=== PATIENT | male | born 1980 | race Caucasian/White ===

== ENCOUNTER 2018-01-22 11:57 | Emergency (ER) | payer OTHER ==
[2018-01-22] MEDS ORDERED: PROPARACAINE 0.5% OPHTH DROPS 15 ML BTL RIGHT EYE STA (12:30)
[2018-01-22 12:37] VITALS: BP 132/69; PULSE 80; RESP 18; TEMP 98.3
[2018-01-22] MEDS ORDERED: TOBRAMYCIN 0.3% OPHTH DROPS 5 ML BTL RIGHT EYE STA (13:00)
--- NOTE | 2018-01-22 13:07 | ED ---
Eye Problem HPI - General Chief complaint: Eye Problems Stated complaint: FB RT EYE Time Seen by Provider: 01/22/18 12:30 Source: patient, RN notes reviewed Mode of arrival: ambulatory Limitations: no limitations - History of Present Illness Initial comments: This is a 37-year-old male who presents to the emergency department with chief complaint of possible foreign body in his right eye. Patient states that he felt like he got a piece or rust in his eye on Saturday but when he woke up in the morning the foreign body sensation had subsided. He states that this morning he again developed right eye irritation. He states that his eye is sensitive to the light and has foreign body sensation. He denies vision changes , however he does state that it is slightly blurry due to the tearing. States that he did nothing today that would've caused him to have a foreign body in his eye. Patient does not wear contact lenses. Denies fever, chills, chest pain, shortness of breath, abdominal pain, nausea or vomiting, constipation or diarrhea, dysuria or hematuria, numbness or tingling, headache. - Related Data Home Medications Medication Instructions Recorded Confirmed Lisinopril [Zestril] 20 mg PO DAILY 01/22/18 01/22/18 Allergies Allergy/AdvReac Type Severity Reaction Status Date / Time bupropion Allergy Nausea & Verified 01/22/18 12:38 [From Wellbutrin SR] Vomiting & Diarrhea Review of Systems ROS Statement: Those systems with pertinent positive or pertinent negative responses have been documented in the HPI. ROS Other: All systems not noted in ROS Statement are negative. Past Medical History Past Medical History: Hypertension, Renal Disease History of Any Multi-Drug Resistant Organisms: None Reported Past Surgical History: No Surgical Hx Reported Past Psychological History: No Psychological Hx Reported Smoking Status: Never smoker Past Alcohol Use History: None Reported Past Drug Use History: None Reported General Exam - General Exam Comments Initial Comments: General: Awake and alert, well-developed; in no apparent distress. HEENT: Head atraumatic, normocephalic. Pupils are equal, round and reactive to light. Extraocular movements intact. Right conjunctiva is mildly injected. On fluorescein staining and use of Wood's lamp, no abrasions or ulcers noted. No foreign body of the cornea, conjunctiva or under superior or inferior eyelids. Oropharynx moist without erythema or exudate. Neck: Supple. Normal ROM. Cardiovascular: Regular rate and rhythm. No murmurs, rubs or gallops. Chest symmetrical. Respiratory: Lungs clear to auscultation bilaterally. No wheezes, rales or rhonchi. Normal respiratory effort with no use of accessory muscles. Musculoskeletal: Normal ROM, no tenderness bilateral upper and lower extremities. Ambulating normally. Skin: [place], warm and dry without rashes or lesions. Neurological: Alert and oriented x3. CN II-XII grossly intact. Speech is fluent and answers are appropriate. No focal neuro deficits. Psychiatric: Normal mood and affect. No overt signs of depression or anxiety noted. Limitations: no limitations Course Vital Signs 01/22/18 12:30 Temperature 98.3 F Pulse Rate 80 Respiratory 18 Rate Blood Pressure 132/69 O2 Sat by Pulse 98 Oximetry Medical Decision Making - Medical Decision Making This is a 37 ROM male who presents to the emergency department with chief complaint of possible foreign body in his right eye. On physical examination, extraocular movements are intact area and right conjunctiva is mildly injected. On evaluation with fluorescein staining and Wood's lamp, no abrasions or ulcers are noted. No evidence of foreign body in the eye. Patient's eye irritation resolved with instillation of proparacaine. Patient's vital signs are stable and he is in no acute distress. He will be treated for conjunctivitis with tobramycin. He will be given follow-up to ophthalmology if no improvement symptoms in 1-2 days. Patient is in agreement with plan and voices understanding. He will be discharged home at this time. All questions answered. Disposition Clinical Impression: Conjunctivitis Disposition: HOME SELF-CARE Condition: Good Instructions: Conjunctivitis (ED), Tobramycin (Into the eye) Additional Instructions: Please follow-up with Dr. Vo, ophthalmology if no improvement of symptoms in 1-2 days. Please instill 1-2 drops of tobramycin every 4-6 hours for the next 5 days. Please take medications as prescribed. Please follow up with primary care provider within 1-2 days. Return to emergency department if symptoms should worsen or any concerns arise. Is patient prescribed a controlled substance at d/c from ED?: No Referrals: uTcker Pope MD [Primary Care Provider] - 1-2 days Levon Vo MD [STAFF PHYSICIAN] - 1-2 days Time of Disposition: 13:06
== END 2018-01-22 13:55 | disposition home or self-care (01) ==
LOC: EC 11:57
DX: H10.9 Unspecified conjunctivitis (principal); I12.9 Hypertensive chronic kidney disease with stage 1 through stage 4 chronic kidney disease, or unspecified chronic kidney disease; N18.9 Chronic kidney disease, unspecified; Z79.899 Other long term (current) drug therapy; Z88.8 Allergy status to other drugs, medicaments and biological substances
CPT/HCPCS: 99283

== ENCOUNTER 2021-05-02 10:12 | Inpatient (IN) | payer OTHER ==
[2021-05-02] MEDS ORDERED: methylPREDNISolone SOD SUCCI 125 MG/2 ML VIAL IV STA (10:38)
[2021-05-02] MEDS ORDERED: SODIUM CHLORIDE 0.9% 1,000 ML IV STA ×2 (10:38→11:26)
[2021-05-02] MEDS ORDERED: IPRATROPIUM-ALBUTEROL 3 ML NEB INHALATION STA (10:38)
[2021-05-02] MEDS ORDERED: SODIUM CHLORIDE 0.9% 500 ML 500 ML IV STA ×2 (10:38→11:26)
--- NOTE | 2021-05-02 10:44 | ED ---
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 He does state he's had fevers chills and sweats exactly a better his home inhaler is not helping with the breathing. He does get some relief for a brief period time but later going back and shortness of breath no overt chest pain no palpitations no other complaints or modifying factors MD Complaint: shortness of breath, cough - Related Data Home Medications Medication Instructions Recorded Confirmed lisinopriL [Zestril] 20 mg PO DAILY 01/22/18 01/22/18 Allergies Allergy/AdvReac Type Severity Reaction Status Date / Time bupropion Allergy Nausea & Verified 05/02/21 10:19 [From Wellbutrin SR] Vomiting & Diarrhea Review of Systems ROS Statement: Those systems with pertinent positive or pertinent negative responses have been documented in the HPI. ROS Other: All systems not noted in ROS Statement are negative. Past Medical History Past Medical History: Hypertension, Renal Disease History of Any Multi-Drug Resistant Organisms: None Reported Past Surgical History: No Surgical Hx Reported Past Psychological History: No Psychological Hx Reported Smoking Status: Never smoker Past Alcohol Use History: None Reported Past Drug Use History: None Reported General Exam - General Exam Comments Initial Comments: This is a well-developed well-nourished awake alert oriented times 3 male Limitations: no limitations General appearance: alert, anxious, in distress Head exam: Present: atraumatic, normocephalic, normal inspection Eye exam: Present: normal appearance, PERRL, EOMI. Absent: scleral icterus, conjunctival injection, periorbital swelling ENT exam: Present: mucous membranes dry Neck exam: Present: normal inspection, full ROM, other (No surgery or bruits). Absent: tenderness, meningismus, lymphadenopathy Respiratory exam: Present: accessory muscle use, decreased breath sounds. Absent: respiratory distress, wheezes, rales, rhonchi, stridor Cardiovascular Exam: Present: regular rate, normal rhythm, normal heart sounds. Absent: systolic murmur, diastolic murmur, rubs, gallop, clicks GI/Abdominal exam: Present: soft, normal bowel sounds. Absent: distended, tenderness, guarding, rebound, rigid Extremities exam: Present: normal inspection, full ROM, normal capillary refill. Absent: tenderness, pedal edema, joint swelling, calf tenderness Back exam: Present: normal inspection Neurological exam: Present: alert, oriented X3, CN II-XII intact Psychiatric exam: Present: normal affect, normal mood Skin exam: Present: warm, dry, intact, normal color. Absent: rash Course Vital Signs 05/02/21 05/02/21 05/02/21 10:14 10:28 10:30 Temperature 98.4 F Pulse Rate 90 Respiratory 28 H Rate Blood Pressure 122/69 O2 Sat by Pulse 67 L 63 L 75 L Oximetry 05/02/21 05/02/21 05/02/21 10:32 10:36 10:59 Temperature Pulse Rate 85 Respiratory 20 22 Rate Blood Pressure 135/86 O2 Sat by Pulse 70 L 92 L 93 L Oximetry 05/02/21 05/02/21 11:00 12:13 Temperature Pulse Rate Respiratory Rate Blood Pressure 134/86 O2 Sat by Pulse 93 L 91 L Oximetry Medical Decision Making - Medical Decision Making I did discuss the findings with the patient as well as with Dr. Patton patient will be admitted with pulmonary consultation. - Lab Data Result diagrams: 05/02/21 10:57 05/02/21 10:57 Lab Results 05/02/21 05/02/21 05/02/21 Range/Units 10:57 10:57 10:57 WBC 9.3 (3.8-10.6) k/uL RBC 5.64 (4.30-5.90) m/uL Hgb 15.3 (13.0-17.5) gm/dL Hct 48.0 (39.0-53.0) % MCV 85.2 (80.0-100.0) fL MCH 27.1 (25.0-35.0) pg MCHC 31.8 (31.0-37.0) g/dL RDW 14.1 (11.5-15.5) % Plt Count 255 (150-450) k/uL MPV 8.0 Neutrophils % 84 % Lymphocytes % 11 % Monocytes % 5 % Eosinophils % 0 % Basophils % 0 % Neutrophils # 7.8 H (1.3-7.7) k/uL Lymphocytes # 1.0 (1.0-4.8) k/uL Monocytes # 0.4 (0-1.0) k/uL Eosinophils # 0.0 (0-0.7) k/uL Basophils # 0.0 (0-0.2) k/uL PT 10.5 (9.0-12.0) sec INR 1.0 (<1.2) APTT 25.8 (22.0-30.0) sec D-Dimer 1.79 H (<0.60) mg/L FEU Sodium 138 (137-145) mmol/L Potassium 3.8 (3.5-5.1) mmol/L Chloride 99 (98-107) mmol/L Carbon Dioxide 29 (22-30) mmol/L Anion Gap 10 mmol/L BUN 13 (9-20) mg/dL Creatinine 1.52 H (0.66-1.25) mg/dL Est GFR (CKD-EPI)AfAm 66 (>60 ml/min/1.73 sqM) Est GFR (CKD-EPI)NonAf 57 (>60 ml/min/1.73 sqM) Glucose 88 (74-99) mg/dL Plasma Lactic Acid Melquiades (0.7-2.0) mmol/L Calcium 8.5 (8.4-10.2) mg/dL Magnesium 1.5 L (1.6-2.3) mg/dL Total Bilirubin 0.5 (0.2-1.3) mg/dL AST 62 H (17-59) U/L ALT 23 (4-49) U/L Alkaline Phosphatase 56 (38-126) U/L Creatine Kinase 355 H (55-170) U/L Troponin I (0.000-0.034) ng/mL NT-Pro-B Natriuret Pep pg/mL Total Protein 6.4 (6.3-8.2) g/dL Albumin 3.3 L (3.5-5.0) g/dL 05/02/21 05/02/21 05/02/21 Range/Units 10:57 10:57 10:57 WBC (3.8-10.6) k/uL RBC (4.30-5.90) m/uL Hgb (13.0-17.5) gm/dL Hct (39.0-53.0) % MCV (80.0-100.0) fL MCH (25.0-35.0) pg MCHC (31.0-37.0) g/dL RDW (11.5-15.5) % Plt Count (150-450) k/uL MPV Neutrophils % % Lymphocytes % % Monocytes % % Eosinophils % % Basophils % % Neutrophils # (1.3-7.7) k/uL Lymphocytes # (1.0-4.8) k/uL Monocytes # (0-1.0) k/uL Eosinophils # (0-0.7) k/uL Basophils # (0-0.2) k/uL PT (9.0-12.0) sec INR (<1.2) APTT (22.0-30.0) sec D-Dimer (<0.60) mg/L FEU Sodium (137-145) mmol/L Potassium (3.5-5.1) mmol/L Chloride (98-107) mmol/L Carbon Dioxide (22-30) mmol/L Anion Gap mmol/L BUN (9-20) mg/dL Creatinine (0.66-1.25) mg/dL Est GFR (CKD-EPI)AfAm (>60 ml/min/1.73 sqM) Est GFR (CKD-EPI)NonAf (>60 ml/min/1.73 sqM) Glucose (74-99) mg/dL Plasma Lactic Acid Melquiades 2.2 H* (0.7-2.0) mmol/L Calcium (8.4-10.2) mg/dL Magnesium (1.6-2.3) mg/dL Total Bilirubin (0.2-1.3) mg/dL AST (17-59) U/L ALT (4-49) U/L Alkaline Phosphatase (38-126) U/L Creatine Kinase (55-170) U/L Troponin I 0.027 (0.000-0.034) ng/mL NT-Pro-B Natriuret Pep 187 pg/mL Total Protein (6.3-8.2) g/dL Albumin (3.5-5.0) g/dL - EKG Data -: EKG Interpreted by Me EKG shows normal: sinus rhythm, axis, intervals, QRS complexes, ST-T waves Rate: normal EKG Comments: Normal sinus rhythm with 83 [place] interval 186 QRS duration 96 QT since QTC 374/[address]-T wave changes some artifact present - Radiology Data Radiology results: report reviewed (Imaging reviewed no evidence of PE evidence of bilateral groundglass infiltrate consistent with pneumonia), image reviewed Disposition Clinical Impression: Pneumonia due to COVID-19 virus, Hypoxemia, Failure of outpatient treatment, Lactic acidosis, Dehydration Disposition: ADMITTED IP TO THIS HOSP Condition: Fair Referrals: Tucker Pope MD [Primary Care Provider] - 1-2 days
[2021-05-02] MEDS ORDERED: ALBUTEROL HFA INHALER INHALATION STA (11:02)
[2021-05-02 11:12] LABS: Basophils % (A) 0 %; Eosinophils % (A) 0 %; HGB 15.3 gm/dL (13.0-17.5); Lymphocytes % (A) 11 %; MCH 27.1 pg (25.0-35.0); MCHC 31.8 g/dL (31.0-37.0); MCV 85.2 fL (80.0-100.0); Monocytes # (A) 0.4 k/uL (0-1.0); Monocytes % (A) 5 %; Neutrophils # (A) 7.8 k/uL (1.3-7.7); Neutrophils % (A) 84 %; Platelet Count 255 k/uL (150-450); RBC 5.64 m/uL (4.30-5.90); RDW 14.1 % (11.5-15.5); WBC 9.3 k/uL (3.8-10.6)
[2021-05-02 11:24] LABS: Albumin 3.3 g/dL (3.5-5.0); Calcium 8.5 mg/dL (8.4-10.2); Magnesium 1.5 mg/dL (1.6-2.3); Potassium 3.8 mmol/L (3.5-5.1); Total Bilirubin 0.5 mg/dL (0.2-1.3); Total Protein 6.4 g/dL (6.3-8.2)
[2021-05-02 11:27] LABS: Partial Thromboplastin Time 25.8 sec (22.0-30.0); Prothrombin Time 10.5 sec (9.0-12.0)
--- NOTE | 2021-05-02 11:35 | XR ---
EXAMINATION TYPE: XR chest 2V DATE OF EXAM: 05/02/2021 COMPARISON: NONE HISTORY: SOB ; COVID positive. TECHNIQUE: Frontal and lateral views of the chest are obtained. FINDINGS: There is mild cardiomegaly. Multifocal and Confluent opacities right lung and to lesser degree left lung without pleural effusion or pneumothorax. The osseous structures are intact. IMPRESSION: Cardiomegaly with multifocal and confluent bilateral opacities could reflect infiltrates and/or edema. Former is favored given history of covid 19 positivity.
[2021-05-02] MEDS ORDERED: MAGNESIUM SULFATE-D5W PMX 1 GM in DEXTROSE/WATER 1 100ML.BAG IVPB ONE (11:53)
--- NOTE | 2021-05-02 12:33 | CT ---
EXAMINATION TYPE: CT angio chest DATE OF EXAM: 05/02/2021 12:01 PM COMPARISON: None HISTORY: covid +, PE CT DLP: 648 mGycm Automated exposure control for dose reduction was used. CONTRAST: CTA scan of the thorax is performed with IV Contrast, patient injected with 80 mL of Isovue 370, pulm onary embolism protocol. . FINDINGS: LUNGS: Diffuse groundglass changes bilaterally. Findings compatible with diffuse pneumonitis compatib le with the patient's history. No sizable pleural effusion or pneumothorax. MEDIASTINUM: There is of optimal enhancement of the pulmonary artery and its branches, there is no CT evidence for central pulmonary embolism. There are no greater than 1 cm hilar or mediastinal lymph nodes. No pericardial effusion is seen. OTHER: No additional significant abnormality is seen. IMPRESSION: 1. Diffuse bilateral groundglass changes compatible diffuse pneumonia or pneumonitis compatible with the patient's history. 2. No central pulmonary embolism. Secondary and distal branches limited by suboptimal enhancement
[2021-05-02] MEDS: ZINC SULFATE 220 MG CAP PO SCH (15:02)
[2021-05-02] MEDS: ASCORBIC ACID 500 MG TAB PO SCH (15:02)
[2021-05-02] MEDS: CHOLECALCIFEROL 25 MCG (1000 IU) TABLET PO SCH (15:02)
--- NOTE | 2021-05-02 16:23 | P.HPIM ---
History of Present Illness H&P Date: 05/02/21 This is a 40-year-old male with past medical history significant for mild intermittent asthma who presented to the hospital with worsening shortness of breath and dyspnea. Patient said that he was diagnosed with COVID19 approximately 2 weeks ago and since then he has been getting progressively wor se. He is complaining of fevers and chills at home as well as heavy sweating. Patient says shortness of breath got significantly worse today and he was unable to ambulate without feeling significantly dyspneic. He presented to the emergency room for further evaluation. In the ER, patient was found to be hypoxic with imaging showing diffuse ground glass infiltrate. Patient was given IV Solu-Medrol and admitted to the hospital for further evaluation. Patient told me that he is feeling slightly better right now. He was not vaccinated against COVID. Review of Systems Review of system: 14 points review of systems were obtained and were negative except to what were mentioned in the HPI. Past Medical History Past Medical History: Hypertension, Renal Disease History of Any Multi-Drug Resistant Organisms: None Reported Past Surgical History: No Surgical Hx Reported Past Psychological History: No Psychological Hx Reported Smoking Status: Former smoker Past Alcohol Use History: None Reported Past Drug Use History: None Reported - Past Family History Father Family Medical History: Coronary Artery Disease (CAD), Rheumatoid Arthritis (RA) Additional Family Medical History / Comment(s): coliltis Medications and Allergies Home Medications Medication Instructions Recorded Confirmed Type Bisoprolol-Hctz 10-6.25 mg [Ziac 1 tab PO DAILY 05/02/21 05/02/21 History 10-6.25 MG] Cetirizine HCl [Zyrtec] 10 mg PO DAILY 05/02/21 05/02/21 History Famotidine [Pepcid] 40 mg PO DAILY 05/02/21 05/02/21 History Fluticasone Nasal [place] [Flonase 2 spr EA NOSTRIL DAILY PRN 05/02/21 05/02/21 History Nasal [place]] Montelukast [Singulair] 10 mg PO HS 05/02/21 05/02/21 History Tamsulosin [Flomax] 0.4 mg PO DAILY 05/02/21 05/02/21 History lisinopriL [Zestril] 30 mg PO DAILY 05/02/21 05/02/21 History Allergies Allergy/AdvReac Type Severity Reaction Status Date / Time bupropion AdvReac Nausea & Verified 05/02/21 13:26 [From Wellbutrin SR] Vomiting & Diarrhea Physical Exam Vitals: Vital Signs Temp Pulse Pulse Resp BP BP Pulse Ox 05/02/21 13:43 89 L 05/02/21 13:35 98.8 F 84 20 140/88 89 L 05/02/21 13:08 84 20 128/67 92 L 05/02/21 12:13 91 L 05/02/21 11:00 134/86 93 L 05/02/21 10:59 22 93 L 05/02/21 10:36 85 20 135/86 92 L 05/02/21 10:32 70 L 05/02/21 10:30 75 L 05/02/21 10:28 63 L 05/02/21 10:14 98.4 F 90 28 H 122/69 67 L Intake and Output 05/02/21 05/02/21 05/02/21 06:59 14:59 22:59 Other: Weight 102.058 kg General: The patient is awake and alert, in no distress Eye: there is normal conjunctiva bilaterally. Neck: The neck is supple, there is no JVD. Cardiovascular: Normal S1-S2, no S3-S4, no murmurs. Respiratory: Lungs clear to auscultation bilaterally Gastrointestinal: Abdomen is soft, nontender Musculoskeletal: There is no pedal edema. Neurological:. Speech is normal. Skin: Skin is warm and dry Results CBC & Chem 7: 05/02/21 10:57 05/02/21 10:57 Labs: Abnormal Lab Results - Last 24 Hours (Table) 05/02/21 05/02/21 05/02/21 Range/Units 10:57 10:57 10:57 Neutrophils # 7.8 H (1.3-7.7) k/uL D-Dimer 1.79 H (<0.60) mg/L FEU Creatinine 1.52 H (0.66-1.25) mg/dL Plasma Lactic Acid Melquiades (0.7-2.0) mmol/L Magnesium 1.5 L (1.6-2.3) mg/dL AST 62 H (17-59) U/L Creatine Kinase 355 H (55-170) U/L Albumin 3.3 L (3.5-5.0) g/dL 05/02/21 Range/Units 10:57 Neutrophils # (1.3-7.7) k/uL D-Dimer (<0.60) mg/L FEU Creatinine (0.66-1.25) mg/dL Plasma Lactic Acid Melquiades 2.2 H* (0.7-2.0) mmol/L Magnesium (1.6-2.3) mg/dL AST (17-59) U/L Creatine Kinase (55-170) U/L Albumin (3.5-5.0) g/dL Thrombosis Risk Factor Assmnt - Choose All That Apply Any of the Below Risk Factors Present?: Yes Each Factor Represents 1 point: Obesity (BMI >25) Other Risk Factors: No Other congenital or acquired thrombophilia - If yes, enter type in comment: No Thrombosis Risk Factor Assessment Total Risk Factor Score: 1 Thrombosis Risk Factor Assessment Level: Low Risk Assessment and Plan Assessment: 1. COVID-19 pneumonia with diffuse groundglass infiltrate bilaterally 2. Acute hypoxic respiratory failure 3. Elevated d-dimer with no evidence of PE on CT angiogram 4. Acute kidney injury 5. Hypomagnesemia 6. History of mild intermittent asthma 7. Former smoker Patient is currently on 15 L of high flow nasal cannula with O2 sats ration within acceptable range. He was treated with 125 mg of IV Solu-Medrol in the ER. Continue albuterol inhaler. Decadron 6 mg IV daily. Vitamin C, vitamin D, and zinc supplements. Magnesium replaced IV in the ER. Continue magnesium oxide 400 mg twice daily. Aggressive IV fluid hydration. Repeat lab work in the morning. Overall prognosis is guarded.
[2021-05-02] MEDS: ALBUTEROL HFA INHALER INHALATION SCH ×3 (16:50→23:40)
--- NOTE | 2021-05-02 18:24 | P.CNPUL ---
History of Present Illness Consult date: 05/02/21 Requesting physician: Victor Hugo Patton Reason for consult: dyspnea, hypoxemia, pneumonia, abnormal CXR/CT Chief complaint: Dyspnea, hypoxia, COVID-19 History of present illness: This is a 40-year-old the white male patient of Dr. Pope, with history of hypertension, history of mild intermittent bronchial asthma, former smoker, who presented to the emergency department on 05/02/2021 for evaluation of progressive dyspnea. Patient stated that she was diagnosed with COVID-19 approximately 2 weeks ago, and reports symptoms of fever, chills, shortness of breath which is significantly worse today, to the point where the patient was unable to ambulate. He does report cough with some brown phlegm production. His chest x-ray on admission showed cardiac megaly with multifocal and confluent bilateral opacities and could reflect infiltrates and/or edema. Blood work showed white blood cell count of 9.3, hemoglobin is 15.3, lymphocyte count was 1.0, d-dimer was 1.79, electrolytes were within normal limits, creatinine was 1.52, plasma lactic acid was 2.2, AST was 62, ALT was 23, alkaline phosphatase is 56, CK was 355, troponin was 0.027, proBNP was 187. he was severely hypoxic with a pulse ox of 67% in the emergency department on 6 L of supplemental oxygen, FiO2 was then increased to 15 L high flow and currently his pulse ox is 87-89%. CT angiogram of the chest was completed showing diffuse bilateral groundglass changes compatible with diffuse pneumonia or pneumonitis, no evidence of central pulmonary embolism, exam for secondary distal branches limited by suboptimal enhancement. Patient is outside the window for Remdesivir, patient was started on IV Decadron 6 mg daily, prophylactic dose Lovenox, she was given IV fluids a total of 1 L, and normal saline is infusing and rate of 75 ML per hour. Blood cultures have been sent and pending. he has been afebrile since admission. Review of Systems All systems: negative Constitutional: Denies chills, Denies fever Eyes: denies blurred vision, denies pain Ears, nose, mouth and throat: Denies headache, Denies sore throat Cardiovascular: Denies chest pain, Denies shortness of breath Respiratory: Reports dyspnea, Denies cough Gastrointestinal: Denies abdominal pain, Denies diarrhea, Denies nausea, Denies vomiting Musculoskeletal: Denies myalgias Integumentary: Denies pruritus, Denies rash Neurological: Denies numbness, Denies weakness Psychiatric: Denies anxiety, Denies depression Endocrine: Denies fatigue, Denies weight change Past Medical History Past Medical History: Hypertension, Renal Disease History of Any Multi-Drug Resistant Organisms: None Reported Past Surgical History: No Surgical Hx Reported Past Psychological History: No Psychological Hx Reported Smoking Status: Former smoker Past Alcohol Use History: None Reported Past Drug Use History: None Reported - Past Family History Father Family Medical History: Coronary Artery Disease (CAD), Rheumatoid Arthritis (RA) Additional Family Medical History / Comment(s): coliltis Medications and Allergies Home Medications Medication Instructions Recorded Confirmed Type Bisoprolol-Hctz 10-6.25 mg [Ziac 1 tab PO DAILY 05/02/21 05/02/21 History 10-6.25 MG] Cetirizine HCl [Zyrtec] 10 mg PO DAILY 05/02/21 05/02/21 History Famotidine [Pepcid] 40 mg PO DAILY 05/02/21 05/02/21 History Fluticasone Nasal [place] [Flonase 2 spr EA NOSTRIL DAILY PRN 05/02/21 05/02/21 History Nasal [place]] Montelukast [Singulair] 10 mg PO HS 05/02/21 05/02/21 History Tamsulosin [Flomax] 0.4 mg PO DAILY 05/02/21 05/02/21 History lisinopriL [Zestril] 30 mg PO DAILY 05/02/21 05/02/21 History Allergies Allergy/AdvReac Type Severity Reaction Status Date / Time bupropion AdvReac Nausea & Verified 05/02/21 13:26 [From Wellbutrin SR] Vomiting & Diarrhea Physical Exam Vitals: Vital Signs Temp Pulse Pulse Resp BP BP Pulse Ox 05/02/21 16:51 87 L 05/02/21 13:43 89 L 05/02/21 13:35 98.8 F 84 20 140/88 89 L 05/02/21 13:08 84 20 128/67 92 L 05/02/21 12:13 91 L 05/02/21 11:00 134/86 93 L 05/02/21 10:59 22 93 L 05/02/21 10:36 85 20 135/86 92 L 05/02/21 10:32 70 L 05/02/21 10:30 75 L 05/02/21 10:28 63 L 05/02/21 10:14 98.4 F 90 28 H 122/69 67 L Intake and Output 05/02/21 05/02/21 05/02/21 06:59 14:59 22:59 Output Total 400 Balance -400 Output: Urine 400 Other: Weight 102.058 kg GENERAL EXAM: Alert, active, pleasant 40-year-old white male, on 15 L high flow oxygen, with a pulse ox between 80-91% comfortable in no apparent distress. HEAD: Normocephalic/atraumatic. EYES: Normal reaction of pupils, equal size. Conjunctiva pink, sclera white. NOSE: Clear with pink turbinates. THROAT: No erythema or exudates. NECK: No masses, no JVD, no thyroid enlargement, no adenopathy. CHEST: No chest wall deformity. Symmetrical expansion. LUNGS: Equal air entry with diffuse crackles CVS: Regular rate and rhythm, normal S1 and S2, no gallops, no murmurs, no rubs ABDOMEN: Soft, nontender. No hepatosplenomegaly, normal bowel sounds, no guarding or rigidity. EXTREMITIES: No clubbing, no edema, no cyanosis, 2+ pulses and upper and lower extremities. MUSCULOSKELETAL: Muscle strength and tone normal. SPINE: No scoliosis or deformity SKIN: No rashes CENTRAL NERVOUS SYSTEM: Alert and oriented -3. No focal deficits, tone is normal in all 4 extremities. PSYCHIATRIC: Alert and oriented -3. Appropriate affect. Intact judgment and insight. Results - Laboratory Findings CBC and BMP: 05/02/21 10:57 05/02/21 10:57 PT/INR, D-dimer PT 10.5 sec (9.0-12.0) 05/02/21 10:57 INR 1.0 (<1.2) 05/02/21 10:57 D-Dimer 1.79 mg/L FEU (<0.60) H 05/02/21 10:57 Abnormal lab findings: Abnormal Labs 05/02/21 05/02/21 05/02/21 10:57 10:57 10:57 Neutrophils # 7.8 H D-Dimer 1.79 H Creatinine 1.52 H Plasma Lactic Acid Melquiades Magnesium 1.5 L AST 62 H Creatine Kinase 355 H Albumin 3.3 L 05/02/21 10:57 Neutrophils # D-Dimer Creatinine Plasma Lactic Acid Melquiades 2.2 H* Magnesium AST Creatine Kinase Albumin - Diagnostic Findings Chest x-ray: report reviewed, image reviewed CT scan - chest: report reviewed, image reviewed Additional studies: EKG reviewed Assessment and Plan Plan: Assessment: #1. Acute hypoxic respiratory failure related to acute COVID-19 pneumonia, diagnosed 2 weeks ago, and is outside the window for Remdesivir. Consider Bariticinib evidence of severe hypoxic respiratory failure #2. History of mild intermittent bronchial asthma #3. Acute kidney injury #4. Hypertension #5. Former smoker #6. Mild lactic acidosis #7. Elevated d-dimer without CT evidence of pulmonary embolism Plan: Continue IV Solu-Medrol Continue the vitamins Continue prophylactic Lovenox Patient presented with severe pneumonia related to COVID 19 We'll consider starting patient on Bariticinib I performed a history & physical examination of the patient and discussed their management with my nurse practitioner, Leda Dawson. I reviewed the nurse practitioner's note and agree with the documented findings and plan of care. Lung sounds are positive for diminished breath sounds throughout the lung pederson. The findings and the impression was discussed with the patient. I attest to the documentation by the nurse practitioner. Time with Patient: Greater than 30
[2021-05-02] MEDS: MAGNESIUM OXIDE 400 MG TAB PO SCH (21:23)
[2021-05-02] MEDS: BARICITINIB 2 MG TABLET PO SCH (21:23)
[2021-05-02] MEDS: SODIUM CHLORIDE 0.9% 1,000 ML IV SCH (21:24)
[2021-05-02] MEDS ORDERED: CALCIUM CARBONATE 500 MG CHEWABLE PO PRN (21:28)
[2021-05-03] MEDS: ALBUTEROL HFA INHALER INHALATION SCH ×6 (03:34→23:55)
[2021-05-03] MEDS: BARICITINIB 2 MG TABLET PO SCH ×2 (03:55→20:00)
[2021-05-03] MEDS: MAGNESIUM OXIDE 400 MG TAB PO SCH ×2 (08:33→21:19)
[2021-05-03] MEDS: CHOLECALCIFEROL 25 MCG (1000 IU) TABLET PO SCH (08:33)
[2021-05-03] MEDS: ENOXAPARIN 40 MG/0.4 ML SYRINGE SQ SCH (08:33)
[2021-05-03] MEDS: ZINC SULFATE 220 MG CAP PO SCH (08:33)
[2021-05-03] MEDS: ASCORBIC ACID 500 MG TAB PO SCH (08:33)
[2021-05-03] MEDS: DEXAMETHASONE SOD PHOSPHATE 10 MG/ML 1 ML VIAL IV SCH (08:33)
[2021-05-03] MEDS ORDERED: FLUTICASONE 50MCG/SPRAY NASAL 16GM EA NOSTRIL PRN (08:59)
[2021-05-03 09:22] LABS: Basophils # (A) 0.02 X 10*3/uL (0.00-0.10); Basophils % (A) 0.2 %; Eosinophils # (A) 0 X 10*3/uL (0.04-0.35); Eosinophils % (A) 0 %; HCT 43.8 % (39.6-50.0); HGB 13.6 g/dL (13.0-17.0); Lymphocytes # (A) 0.86 X 10*3/uL (0.90-5.00); Lymphocytes % (A) 9.7 %; MCH 26.2 pg (27.0-32.0); MCHC 31.1 g/dL (32.0-37.0); MCV 84.4 fL (80.0-97.0); Mean Platelet Volume 10.1 fL (9.5-12.2); Monocytes # (A) 0.49 X 10*3/uL (0.20-1.00); Monocytes % (A) 5.5 %; Neutrophils # (A) 7.31 X 10*3/uL (1.80-7.70); Neutrophils % (A) 82.8 %; Platelet Count 254 X 10*3/uL (140-440); RBC 5.19 X 10*6/uL (4.40-5.60); RDW 15.4 % (11.5-14.5); WBC 8.84 X 10*3/uL (4.50-10.00)
[2021-05-03] MEDS: BISOPROLOL-HCTZ 10-6.25 MG 1 EACH TAB PO SCH (11:29)
[2021-05-03] MEDS: LORATADINE 10 MG TAB PO SCH (11:29)
[2021-05-03] MEDS: TAMSULOSIN 0.4 MG CAP.ER.24H PO SCH (11:29)
[2021-05-03] MEDS: FAMOTIDINE 20 MG TAB PO SCH (11:29)
[2021-05-03] MEDS: lisinopriL 10 MG TAB PO SCH (11:29)
[2021-05-03 13:52] LABS: Anion Gap 7.6 mmol/L (4.00-12.00); C Reactive Protein 12.1 mg/dL (0.0-0.8); Calcium 7.5 mg/dL (8.7-10.3); Carbon Dioxide 28.4 mmol/L (21.6-31.8); Magnesium 1.9 mg/dL (1.5-2.4); Non-African American GFR(CKD) 57.8 (60.0-200.0); Potassium 4.7 mmol/L (3.5-5.5)
--- NOTE | 2021-05-03 15:15 | P.PN ---
Subjective Progress Note Date: 05/03/21 Patient reports feeling slightly better today. His oxygen requirement is not improving compared to yesterday. Objective - Vital Signs Vital signs: Vital Signs Temp 98.7 F 05/03/21 13:52 Pulse 70 05/03/21 13:52 Resp 17 05/03/21 13:52 BP 138/77 05/03/21 13:52 Pulse Ox 100 05/03/21 13:52 Intake & Output 05/02/21 05/03/21 05/03/21 18:59 06:59 18:59 Intake Total 800 Output Total 400 800 Balance -400 -800 800 Weight 102.058 kg Intake: Oral 800 Output: Urine 400 800 Other: Voiding Method Urinal Urinal # Voids 5 # Bowel Movements 0 - Exam General: The patient is awake and alert, in no distress Eye: there is normal conjunctiva bilaterally. Neck: The neck is supple, there is no JVD. Cardiovascular: Normal S1-S2, no S3-S4, no murmurs. Respiratory: Lungs clear to auscultation bilaterally Gastrointestinal: Abdomen is soft, nontender Musculoskeletal: There is no pedal edema. Neurological:. Speech is normal. Skin: Skin is warm and dry - Labs CBC & Chem 7: 05/03/21 06:12 05/03/21 06:12 Labs: Abnormal Lab Results - Last 24 Hours (Table) 05/03/21 05/03/21 05/03/21 Range/Units 06:12 06:12 06:12 MCH 26.2 L (27.0-32.0) pg MCHC 31.1 L (32.0-37.0) g/dL RDW 15.4 H (11.5-14.5) % Absolute Nucleated RBC 0.03 H (0.00-0.00) X 10*3/uL Immature Gran # 0.16 H (0.00-0.04) X 10*3/uL Lymphocytes # 0.86 L (0.90-5.00) X 10*3/uL Eosinophils # 0 L (0.04-0.35) X 10*3/uL NRBC/100 WBC Diff 0.3 H (0.0-0.0) /100 WBCS D-Dimer 3.73 H (<0.60) mg/L FEU Est GFR (CKD-EPI)NonAf 57.8 L (60.0-200.0) Calcium 7.5 L (8.7-10.3) mg/dL Lactate Dehydrogenase 884 H (120-246) U/L C-Reactive Protein 12.1 H (0.0-0.8) mg/dL Microbiology - Last 24 Hours (Table) 05/02/21 10:50 Blood Culture - Preliminary Blood No Growth after 24 hours 05/02/21 10:35 Blood Culture - Preliminary Blood No Growth after 24 hours Assessment and Plan Assessment: 1. COVID-19 pneumonia with diffuse groundglass infiltrate bilaterally 2. Acute hypoxic respiratory failure 3. Elevated d-dimer with no evidence of PE on CT angiogram 4. Acute kidney injury with suspected underlying COPD 5. Hypomagnesemia, replaced 6. History of mild intermittent asthma 7. Former smoker Today, I reviewed his medication list and lab work results. Patient is currently on 15 L of high flow nasal cannula with a nonrebreather on top. Continue albuterol inhaler. Decadron 6 mg IV daily day #2. Vitamin C, vitamin D, and zinc supplements. Magnesium replaced. Patient received aggressive IV fluid hydration. Repeat lab work in the morning. Patient was seen and evaluated by pulmonology, appreciate recommendations. Repeat chest x-ray in the morning. Overall prognosis is guarded.
--- NOTE | 2021-05-03 18:28 | P.PN ---
Subjective Progress Note Date: 05/03/21 Principal diagnosis: COVID-19 pneumonia This is a 40-year-old the white male patient of Dr. Pope, with history of hypertension, history of mild intermittent bronchial asthma, former smoker, who presented to the emergency department on 05/02/2021 for evaluation of progressive dyspnea. Patient stated that she was diagnosed with COVID-19 approximately 2 weeks ago, and reports symptoms of fever, chills, shortness of breath which is significantly worse today, to the point where the patient was unable to ambulate. He does report cough with some brown phlegm production. His chest x-ray on admission showed cardiac megaly with multifocal and confluent bilateral opacities and could reflect infiltrates and/or edema. Blood work showed white blood cell count of 9.3, hemoglobin is 15.3, lymphocyte count was 1.0, d-dimer was 1.79, electrolytes were within normal limits, creatinine was 1.52, plasma lactic acid was 2.2, AST was 62, ALT was 23, alkaline phosphatase is 56, CK was 355, troponin was 0.027, proBNP was 187. he was severely hypoxic with a pulse ox of 67% in the emergency department on 6 L of supplemental oxygen, FiO2 was then increased to 15 L high flow and currently his pulse ox is 87-89%. CT angiogram of the chest was completed showing diffuse bilateral arturo undglass changes compatible with diffuse pneumonia or pneumonitis, no evidence of central pulmonary embolism, exam for secondary distal branches limited by suboptimal enhancement. Patient is outside the window for Remdesivir, patient was started on IV Decadron 6 mg daily, prophylactic dose Lovenox, she was given IV fluids a total of 1 L, and normal saline is infusing and rate of 75 ML per hour. Blood cultures have been sent and pending. he has been afebrile since admission. The patient is seen today 05/03/2021 in follow-up on the regular medical floor. He is currently sitting up at the bedside. Awake and alert. He is in mild respiratory distress. He is requiring 15 L high flow nasal cannula plus a nonrebreather mask to maintain O2 saturation in the 90s. He's been afebrile. Hemodynamically stable. Blood cultures reveal no growth. White count 8.8. Hemoglobin 13.6. Platelets 254. Lymphocyte 0.86. D-dimer 3.73. Sodium 138. Potassium 4.7 and creatinine 1.5. LDH 84. C-reactive protein 12.1. He remains on Bariticinib, Decadron, Lovenox, Singulair, vitamin supplements. He was outside the window for Remdesivir. Objective - Vital Signs Vital signs: Vital Signs Temp 98.1 F 05/03/21 16:53 Pulse 70 05/03/21 16:53 Resp 18 05/03/21 16:53 BP 136/75 05/03/21 16:53 Pulse Ox 90 L 05/03/21 16:53 Intake & Output 05/02/21 05/03/21 05/03/21 18:59 06:59 18:59 Intake Total 800 Output Total 400 800 Balance -400 -800 800 Weight 102.058 kg Intake: Oral 800 Output: Urine 400 800 Other: Voiding Method Urinal Urinal # Voids 5 # Bowel Movements 0 - Exam GENERAL EXAM: Alert, pleasant 40-year-old white male, on 15 L high flow oxygen, with a pulse ox between 90-91% comfortable in no apparent distress. HEAD: Normocephalic/atraumatic. EYES: Normal reaction of pupils, equal size. Conjunctiva pink, sclera white. NOSE: Clear with pink turbinates. THROAT: No erythema or exudates. NECK: No masses, no JVD, no thyroid enlargement, no adenopathy. CHEST: No chest wall deformity. Symmetrical expansion. LUNGS: Equal air entry with diffuse crackles bilaterally CVS: Regular rate and rhythm, normal S1 and S2, no gallops, no murmurs, no rubs ABDOMEN: Soft, nontender. No hepatosplenomegaly, normal bowel sounds, no guarding or rigidity. EXTREMITIES: No clubbing, no edema, no cyanosis, 2+ pulses and upper and lower extremities. MUSCULOSKELETAL: Muscle strength and tone normal. SPINE: No scoliosis or deformity SKIN: No rashes CENTRAL NERVOUS SYSTEM: No focal deficits, tone is normal in all 4 extremities. PSYCHIATRIC: Alert and oriented -3. Appropriate affect. Intact judgment and insight. - Labs CBC & Chem 7: 05/03/21 06:12 05/03/21 06:12 Labs: Abnormal Lab Results - Last 24 Hours (Table) 05/03/21 05/03/21 05/03/21 Range/Units 06:12 06:12 06:12 MCH 26.2 L (27.0-32.0) pg MCHC 31.1 L (32.0-37.0) g/dL RDW 15.4 H (11.5-14.5) % Absolute Nucleated RBC 0.03 H (0.00-0.00) X 10*3/uL Immature Gran # 0.16 H (0.00-0.04) X 10*3/uL Lymphocytes # 0.86 L (0.90-5.00) X 10*3/uL Eosinophils # 0 L (0.04-0.35) X 10*3/uL NRBC/100 WBC Diff 0.3 H (0.0-0.0) /100 WBCS D-Dimer 3.73 H (<0.60) mg/L FEU Est GFR (CKD-EPI)NonAf 57.8 L (60.0-200.0) Calcium 7.5 L (8.7-10.3) mg/dL Lactate Dehydrogenase 884 H (120-246) U/L C-Reactive Protein 12.1 H (0.0-0.8) mg/dL Microbiology - Last 24 Hours (Table) 05/02/21 10:50 Blood Culture - Preliminary Blood No Growth after 24 hours 05/02/21 10:35 Blood Culture - Preliminary Blood No Growth after 24 hours Assessment and Plan Assessment: 1 Acute hypoxic respiratory failure related to acute COVID-19 pneumonia, diagnosed 2 weeks ago, and is outside the window for Remdesivir. Initiated Bariticinib for evidence of severe hypoxic respiratory failure 2 History of mild intermittent bronchial asthma 3 Acute kidney injury 4 Hypertension 5 Former smoker 6 Mild lactic acidosis 7 Elevated d-dimer without CT evidence of pulmonary embolism Plan: The patient was seen and evaluated by Dr. Steele Continue Bariticinib, Lovenox, Decadron and a vitamin supplements. Encouraged regarding the increased use of the incentive spirometer Encouraged to lay prone when in bed Titrate the FiO2 as tolerated Prognosis is guarded We will continue to follow and make further recommendations based on his clinical status I, the cosigning physician, performed a history & physical examination of the patient. Lungs sounds crackles in the bilateral posterior bases. Maintaining good O2 saturations in the 90s on 15 L high flow cannula plus nonrebreather mask I discussed the assessment and plan of care with my nurse practitioner, Malena Lopez. I attest to the above note as dictated by her.
[2021-05-03] MEDS: SODIUM CHLORIDE 0.9% 1,000 ML IV SCH (19:59)
[2021-05-03] MEDS: MONTELUKAST 10 MG TAB PO SCH (21:19)
[2021-05-04] MEDS: ALBUTEROL HFA INHALER INHALATION SCH ×6 (04:01→20:12)
[2021-05-04] MEDS ORDERED: ACETAMINOPHEN TAB 325 MG TAB PO PRN (06:08)
[2021-05-04] MEDS ORDERED: ACETAMINOPHEN TAB 325 MG TAB PO STA (06:10)
[2021-05-04] MEDS: SODIUM CHLORIDE 0.9% 1,000 ML IV SCH ×2 (06:37→13:29)
[2021-05-04] MEDS: CHOLECALCIFEROL 25 MCG (1000 IU) TABLET PO SCH (07:50)
[2021-05-04] MEDS: DEXAMETHASONE SOD PHOSPHATE 10 MG/ML 1 ML VIAL IV SCH (07:50)
[2021-05-04] MEDS: ASCORBIC ACID 500 MG TAB PO SCH (07:51)
[2021-05-04] MEDS: FAMOTIDINE 20 MG TAB PO SCH (07:51)
[2021-05-04] MEDS: lisinopriL 10 MG TAB PO SCH (07:51)
[2021-05-04] MEDS: ZINC SULFATE 220 MG CAP PO SCH (07:51)
[2021-05-04] MEDS: MAGNESIUM OXIDE 400 MG TAB PO SCH ×2 (07:51→21:45)
[2021-05-04] MEDS: LORATADINE 10 MG TAB PO SCH (07:51)
[2021-05-04] MEDS: TAMSULOSIN 0.4 MG CAP.ER.24H PO SCH (07:51)
[2021-05-04] MEDS: ENOXAPARIN 40 MG/0.4 ML SYRINGE SQ SCH (07:52)
[2021-05-04] MEDS: BISOPROLOL-HCTZ 10-6.25 MG 1 EACH TAB PO SCH (07:54)
--- NOTE | 2021-05-04 08:19 | XR ---
EXAMINATION TYPE: XR chest 1V DATE OF EXAM: 05/04/2021 COMPARISON: 05/02/2021 HISTORY: Shortness of breath TECHNIQUE: Single frontal view of the chest is obtained. FINDINGS: Bilateral interstitial infiltrate stable. Heart is enlarged. No pneumothorax or sizable pl eural effusion. Osseous structures are stable. IMPRESSION: Stable diffuse bilateral interstitial infiltrates
--- NOTE | 2021-05-04 13:28 | P.PN ---
<Leda Dawson M - Last Filed: 05/04/21 13:28> Subjective Progress Note Date: 05/04/21 This is a 40-year-old the white male patient of Dr. Pope, with history of hypertension, history of mild intermittent bronchial asthma, former smoker, who presented to the emergency department on 05/02/2021 for evaluation of progres sive dyspnea. Patient stated that she was diagnosed with COVID-19 approximately 2 weeks ago, and reports symptoms of fever, chills, shortness of breath which is significantly worse today, to the point where the patient was unable to ambulate. He does report cough with some brown phlegm production. His chest x- ray on admission showed cardiac megaly with multifocal and confluent bilateral opacities and could reflect infiltrates and/or edema. Blood work showed white blood cell count of 9.3, hemoglobin is 15.3, lymphocyte count was 1.0, d-dimer was 1.79, electrolytes were within normal limits, creatinine was 1.52, plasma lactic acid was 2.2, AST was 62, ALT was 23, alkaline phosphatase is 56, CK was 355, troponin was 0.027, proBNP was 187. he was severely hypoxic with a pulse ox of 67% in the emergency department on 6 L of supplemental oxygen, FiO2 was then increased to 15 L high flow and currently his pulse ox is 87-89%. CT angiogram of the chest was completed showing diffuse bilateral groundglass changes compatible with diffuse pneumonia or pneumonitis, no evidence of central pulmonary embolism, exam for secondary distal branches limited by suboptimal enhancement. Patient is outside the window for Remdesivir, patient was started on IV Decadron 6 mg daily, prophylactic dose Lovenox, she was given IV fluids a total of 1 L, and normal saline is infusing and rate of 75 ML per hour. Blood cultures have been sent and pending. he has been afebrile since admission. The patient is seen today 05/03/2021 in follow-up on the regular medical floor. He is currently sitting up at the bedside. Awake and alert. He is in mild respiratory distress. He is requiring 15 L high flow nasal cannula plus a nonrebreather mask to maintain O2 saturation in the 90s. He's been afebrile. Hemodynamically stable. Blood cultures reveal no growth. White count 8.8. Hemoglobin 13.6. Platelets 254. Lymphocyte 0.86. D-dimer 3.73. Sodium 138. Potassium 4.7 and creatinine 1.5. LDH 84. C-reactive protein 12.1. He remains on Bariticinib, Decadron, Lovenox, Singulair, vitamin supplements. He was outside the window for Remdesivir. On today's evaluation on 05/04/2021 patient seen in follow-up on medical surgical floor, he is requiring 15 L high flow nasal cannula in addition to 100% nonrebreather, and his pulse ox is 95% at complete rest, however he easily desaturates with any activity, he is very short of breath, and she states is difficult for him to talk. He did remove his nonrebreather mask and did desaturate quite rapidly to 71%, he has been started On Baricitinib, still on Decadron. He is on prophylactic dose of Lovenox, today's labs have been reviewed his DO NOT RESUSCITATE today is 3.73, his electrolytes and renal profile were within normal limits, LDH is 884, CRP is 12.1. Hepatitis poor, but patient is able to take in some oral intake. Patient's is on and he wants to know what else he can do to improve his oxygenation Objective - Vital Signs Vital signs: Vital Signs Temp 98.3 F 05/04/21 09:27 Pulse 74 05/04/21 09:27 Resp 18 05/04/21 09:27 BP 116/65 05/04/21 09:27 Pulse Ox 95 05/04/21 09:27 Intake & Output 05/03/21 05/04/21 05/04/21 18:59 06:59 18:59 Intake Total 800 Output Total 1000 Balance 800 -1000 Intake: Oral 800 Output: Urine 1000 Other: Voiding Method Urinal Urinal Urinal # Voids 3 - Exam GENERAL EXAM: Alert, anxious, tachypneic, 40-year-old white male, on 15 L per high flow nasal cannula and 100% nonrebreather mask with a pulse ox of 95% however desaturates quite easily with any activity comfortable in no apparent distress. HEAD: Normocephalic/atraumatic. EYES: Normal reaction of pupils, equal size. Conjunctiva pink, sclera white. NOSE: Clear with pink turbinates. THROAT: No erythema or exudates. NECK: No masses, no JVD, no thyroid enlargement, no adenopathy. CHEST: No chest wall deformity. Symmetrical expansion. LUNGS: Equal air entry with crackles CVS: Regular rate and rhythm, normal S1 and S2, no gallops, no murmurs, no rubs ABDOMEN: Soft, nontender. No hepatosplenomegaly, normal bowel sounds, no guarding or rigidity. EXTREMITIES: No clubbing, no edema, no cyanosis, 2+ pulses and upper and lower extremities. MUSCULOSKELETAL: Muscle strength and tone normal. SPINE: No scoliosis or deformity SKIN: No rashes CENTRAL NERVOUS SYSTEM: Alert and oriented -3. No focal deficits, tone is normal in all 4 extremities. PSYCHIATRIC: Alert and oriented -3. Appropriate affect. Intact judgment and insight. - Labs CBC & Chem 7: 05/03/21 06:12 05/03/21 06:12 Labs: Abnormal Lab Results - Last 24 Hours (Table) 05/03/21 Range/Units 06:12 Est GFR (CKD-EPI)NonAf 57.8 L (60.0-200.0) Calcium 7.5 L (8.7-10.3) mg/dL Lactate Dehydrogenase 884 H (120-246) U/L C-Reactive Protein 12.1 H (0.0-0.8) mg/dL Microbiology - Last 24 Hours (Table) 05/02/21 10:50 Blood Culture - Preliminary Blood No Growth after 48 hours 05/02/21 10:35 Blood Culture - Preliminary Blood No Growth after 48 hours Assessment and Plan Plan: Assessment: #1. Acute hypoxic respiratory failure related to acute COVID-19 pneumonia, diagnosed 2 weeks ago, and is outside the window for Remdesivir. Started Bariticinib evidence of severe hypoxic respiratory failure #2. History of mild intermittent bronchial asthma #3. Acute kidney injury #4. Hypertension #5. Former smoker #6. Mild lactic acidosis #7. Elevated d-dimer without CT evidence of pulmonary embolism Plan: Continue Baricitinib Continue steroids Patient's hypoxia and dyspnea progressed Xanax 0.25 mg TID PRN anxiety Same dose Lovenox Switch to Airvo and use NRB mask as needed to maintain O2 sat at or above 88-90% Transfer to the ICU for closer monitoring I performed a history & physical examination of the patient and discussed their management with my nurse practitioner, Leda Dawson. I reviewed the nurse practitioner's note and agree with the documented findings and plan of care. Lung sounds are positive for diminished breath sounds throughout the lung pederson. The findings and the impression was discussed with the patient. I attest to the documentation by the nurse practitioner. Time with Patient: Less than 30 <[email or web address] - Last Filed: 05/04/21 15:24> Objective - Vital Signs Vital signs: Vital Signs Temp 98.3 F 05/04/21 09:27 Pulse 74 05/04/21 09:27 Resp 18 05/04/21 09:27 BP 116/65 05/04/21 09:27 Pulse Ox 95 05/04/21 09:27 Intake & Output 05/03/21 05/04/21 05/04/21 18:59 06:59 18:59 Intake Total 800 Output Total 1000 Balance 800 -1000 Intake: Oral 800 Output: Urine 1000 Other: Voiding Method Urinal Urinal Urinal # Voids 3 - Labs CBC & Chem 7: 05/03/21 06:12 05/03/21 06:12 Labs: Microbiology - Last 24 Hours (Table) 05/02/21 10:50 Blood Culture - Preliminary Blood No Growth after 48 hours 05/02/21 10:35 Blood Culture - Preliminary Blood No Growth after 48 hours Assessment and Plan Plan: Patient's condition is rather critical. The patient is to be transferred to the intensive care unit for further monitoring. The patient is having easy desaturations. He would drop his pulse ox down to the 70s. He'll be tried on high flow oxygen in combination with a nonrebreather facemask and 100%. We'll continue to follow.
[2021-05-04] MEDS: ALPRAZolam 0.25 MG TAB PO PRN ×2 (13:29→17:56)
--- NOTE | 2021-05-04 14:15 | P.PN ---
Subjective Progress Note Date: 05/04/21 Patient reports feeling the same today. His oxygen requirement is not improving compared to yesterday. Objective - Vital Signs Vital signs: Vital Signs Temp 98.3 F 05/04/21 09:27 Pulse 74 05/04/21 09:27 Resp 18 05/04/21 09:27 BP 116/65 05/04/21 09:27 Pulse Ox 95 05/04/21 09:27 Intake & Output 05/03/21 05/04/21 05/04/21 18:59 06:59 18:59 Intake Total 800 Output Total 1000 Balance 800 -1000 Intake: Oral 800 Output: Urine 1000 Other: Voiding Method Urinal Urinal Urinal # Voids 3 - Exam General: The patient is awake and alert, in no distress Eye: there is normal conjunctiva bilaterally. Neck: The neck is supple, there is no JVD. Cardiovascular: Normal S1-S2, no S3-S4, no murmurs. Respiratory: Lungs clear to auscultation bilaterally Gastrointestinal: Abdomen is soft, nontender Musculoskeletal: There is no pedal edema. Neurological:. Speech is normal. Skin: Skin is warm and dry - Labs CBC & Chem 7: 05/03/21 06:12 05/03/21 06:12 Labs: Microbiology - Last 24 Hours (Table) 05/02/21 10:50 Blood Culture - Preliminary Blood No Growth after 48 hours 05/02/21 10:35 Blood Culture - Preliminary Blood No Growth after 48 hours Assessment and Plan Assessment: 1. COVID-19 pneumonia with diffuse groundglass infiltrate bilaterally 2. Acute hypoxic respiratory failure 3. Elevated d-dimer with no evidence of PE on CT angiogram 4. Hypertensive nephropathy with stage IIIB chronic kidney disease 5. Hypomagnesemia, replaced 6. History of mild intermittent asthma 7. Former smoker Today, I reviewed his medication list and lab work results. Patient is currently on 15 L of high flow nasal cannula with a nonrebreather on top. Continue albuterol inhaler. Decadron 6 mg IV daily day #3. Vitamin C, vitamin D, and zinc supplements. Magnesium replaced. Patient received aggressive IV fluid hydration. Repeat lab work in the morning. Patient was seen and evaluated by pulmonology, appreciate recommendations. Repeat chest x-ray diffuse interstitial infiltrate. Overall prognosis is guarded. Patient was started on Olumiant by pulmonary but has been refusing with concern about his underlying kidney disease. Today I had a prolonged discussion with pharmacy and updated the patient that medication is being dosed according to his kidney function and we will continue to monitor his creatinine daily. Patient was agreeable to take the medications
[2021-05-04 15:10] LABS: Glucose,Whole Blood 98 mg/dL (75-99)
[2021-05-04] MEDS: MONTELUKAST 10 MG TAB PO SCH (21:45)
[2021-05-04] MEDS: BARICITINIB 2 MG TABLET PO SCH (21:45)
[2021-05-05] MEDS ORDERED: MELATONIN 5 MG TABLET PO ONE (00:06)
[2021-05-05] MEDS: ALBUTEROL HFA INHALER INHALATION SCH ×4 (00:15→08:39)
[2021-05-05] MEDS: ALPRAZolam 0.25 MG TAB PO PRN (00:21)
[2021-05-05 05:09] LABS: Basophils % (A) 0 %; Eosinophils % (A) 0 %; HCT 43.9 % (39.0-53.0); HGB 14.4 gm/dL (13.0-17.5); Lymphocytes # (A) 1.1 k/uL (1.0-4.8); Lymphocytes % (A) 12 %; MCH 27.7 pg (25.0-35.0); MCHC 32.9 g/dL (31.0-37.0); MCV 84.4 fL (80.0-100.0); Mean Platelet Volume 7.9; Monocytes # (A) 0.2 k/uL (0-1.0); Monocytes % (A) 3 %; Neutrophils # (A) 7.6 k/uL (1.3-7.7); Neutrophils % (A) 85 %; Platelet Count 229 k/uL (150-450); RDW 14.1 % (11.5-15.5)
[2021-05-05 05:22] LABS: African American GFR (CKD) >90 (>60 ml/min/1.73 sqM); Anion Gap 6 mmol/L; Blood Urea Nitrogen 19 mg/dL (9-20); Calcium 8.2 mg/dL (8.4-10.2); Carbon Dioxide 26 mmol/L (22-30); Chloride 104 mmol/L (98-107); Glucose 79 mg/dL (74-99); Non-African American GFR(CKD) 84 (>60 ml/min/1.73 sqM); Potassium 4.7 mmol/L (3.5-5.1); Sodium 136 mmol/L (137-145)
[2021-05-05] MEDS: SODIUM CHLORIDE 0.9% 1,000 ML IV SCH ×2 (06:05→17:03)
[2021-05-05] MEDS ORDERED: ARTIFICIAL TEARS-HYPROMELLOSE DROPS 15 ML BTL BOTH EYES PRN (06:15)
[2021-05-05] MEDS ORDERED: FUROSEMIDE 10 MG/ML 2 ML VIAL IV ONE (08:45)
[2021-05-05] MEDS: DEXAMETHASONE SOD PHOSPHATE 10 MG/ML 1 ML VIAL IV SCH (09:17)
[2021-05-05] MEDS: ENOXAPARIN 40 MG/0.4 ML SYRINGE SQ SCH (09:17)
[2021-05-05] MEDS: LORATADINE 10 MG TAB PO SCH (09:18)
[2021-05-05] MEDS: ASCORBIC ACID 500 MG TAB PO SCH (09:18)
[2021-05-05] MEDS: CHOLECALCIFEROL 25 MCG (1000 IU) TABLET PO SCH (09:18)
[2021-05-05] MEDS: lisinopriL 10 MG TAB PO SCH (09:18)
[2021-05-05] MEDS: MAGNESIUM OXIDE 400 MG TAB PO SCH ×2 (09:18→21:06)
[2021-05-05] MEDS: ZINC SULFATE 220 MG CAP PO SCH (09:18)
[2021-05-05] MEDS: TAMSULOSIN 0.4 MG CAP.ER.24H PO SCH (09:18)
[2021-05-05] MEDS: FAMOTIDINE 20 MG TAB PO SCH (09:18)
[2021-05-05] MEDS: BISOPROLOL-HCTZ 10-6.25 MG 1 EACH TAB PO SCH (09:20)
[2021-05-05] MEDS: ALPRAZolam 0.5 MG TAB PO PRN ×3 (09:33→23:35)
--- NOTE | 2021-05-05 09:39 | P.PN ---
Subjective Progress Note Date: 05/05/21 Principal diagnosis: Severe COVID-19 pneumonia This is a 40-year-old the white male patient of Dr. Pope, with history of hypertension, history of mild intermittent bronchial asthma, former smoker, who presented to the emergency department on 05/02/2021 for evaluation of progre ssive dyspnea. Patient stated that she was diagnosed with COVID-19 approximately 2 weeks ago, and reports symptoms of fever, chills, shortness of breath which is significantly worse today, to the point where the patient was unable to ambulate. He does report cough with some brown phlegm production. His chest x-ray on admission showed cardiac megaly with multifocal and confluent bilateral opacities and could reflect infiltrates and/or edema. Blood work showed white blood cell count of 9.3, hemoglobin is 15.3, lymphocyte count was 1.0, d-dimer was 1.79, electrolytes were within normal limits, creatinine was 1.52, plasma lactic acid was 2.2, AST was 62, ALT was 23, alkaline phosphatase is 56, CK was 355, troponin was 0.027, proBNP was 187. he was severely hypoxic with a pulse ox of 67% in the emergency department on 6 L of supplemental oxygen, FiO2 was then increased to 15 L high flow and currently his pulse ox is 87-89%. CT angiogram of the chest was completed showing diffuse bilateral groundglass changes compatible with diffuse pneumonia or pneumonitis, no evidence of central pulmonary embolism, exam for secondary distal branches limited by suboptimal enhancement. Patient is outside the window for Remdesivir, patient was started on IV Decadron 6 mg daily, prophylactic dose Lovenox, she was given IV fluids a total of 1 L, and normal saline is infusing and rate of 75 ML per hour. Blood cultures have been sent and pending. he has been afebrile since admission. The patient is seen today 05/03/2021 in follow-up on the regular medical floor. He is currently sitting up at the bedside. Awake and alert. He is in mild respiratory distress. He is requiring 15 L high flow nasal cannula plus a nonrebreather mask to maintain O2 saturation in the 90s. He's been afebrile. Hemodynamically stable. Blood cultures reveal no growth. White count 8.8. Hemoglobin 13.6. Platelets 254. Lymphocyte 0.86. D-dimer 3.73. Sodium 138. Potassium 4.7 and creatinine 1.5. LDH 84. C-reactive protein 12.1. He remains on Bariticinib, Decadron, Lovenox, Singulair, vitamin supplements. He was outside the window for Remdesivir. On today's evaluation on 05/04/2021 patient seen in follow-up on medical surgical floor, he is requiring 15 L high flow nasal cannula in addition to 100% nonrebreather, and his pulse ox is 95% at complete rest, however he easily desaturates with any activity, he is very short of breath, and she states is difficult for him to talk. He did remove his nonrebreather mask and did desaturate quite rapidly to 71%, he has been started On Baricitinib, still on Decadron. He is on prophylactic dose of Lovenox, today's labs have been reviewed his DO NOT RESUSCITATE today is 3.73, his electrolytes and renal profile were within normal limits, LDH is 884, CRP is 12.1. Hepatitis poor, but patient is able to take in some oral intake. Patient's is on and he wants to know what else he can do to improve his oxygenation On today's evaluation on 05/05/2021 patient seen in follow-up in intensive care unit. He is currently on Airvo at 55 L and FiO2 of 90%, and his pulse ox is ranging between 82-93%, overall he states his breathing a bit easier, he seems a bit more relaxed and calm her today. Nursing reports that the intermittent doses of Xanax did help his anxiety and breathlessness. His last fever was yesterday in the morning with a temp of 100.3F, blood pressure has been stable, he continues on 0.9 normal saline at rate 75 ML per hour, he has been started on Baricitinib on all 05/02/2021, and the patient was refusing the dose of 4 mg reg arding the concern of his chronic kidney disease. The dose was then dropped to 2 mg daily, which he has been taking. Today's labs have been reviewed, and his renal function has improved since admission, his creatinine is down to 1.10, BUN is 19, his GFR is greater than 90, his sodium is 136, the rest of the electrolytes were unremarkable, his CBC was within normal limits, lymphocyte count is up to 1.1 on today's labs. His LDH and CRP are pending for today, his LDH yesterday was 884, and CRP was 12.1, BNP was 187, his chest x-ray was reviewed today showing stable diffuse bilateral interstitial infiltrates. Patient is also on Decadron 6 mg daily, he is on Lovenox 40 mg daily, he is on vitamins, he last night he was given a dose of melatonin and the nurses felt that it did help him sleep. no acute events overnight. Patient to be doing better with higher flow of oxygen. Objective - Vital Signs Vital signs: Vital Signs Temp 98.6 F 05/05/21 04:00 Pulse 71 05/05/21 07:30 Resp 59 H 05/05/21 07:30 BP 188/91 05/05/21 07:30 Pulse Ox 82 L 05/05/21 07:30 Intake & Output 05/04/21 05/05/21 05/05/21 18:59 06:59 18:59 Intake Total 150 1020 75 Output Total 400 1150 200 Balance -250 -130 -125 Intake: Intake, IV Titration 150 900 75 Amount Sodium Chloride 0.9% 1, 150 900 75 000 ml @ 75 mls/hr IV . [id number] [facility] Rx#:[id number] Oral 120 Output: Urine 400 1150 200 Other: Voiding Method Urinal Urinal - Exam GENERAL EXAM: Alert, 40-year-old white male, currently on Airvo, at 55 L and FiO2 of 90%, with pulse ox between 83-91%, short of breath with conversation and any exertion, mostly bedbound, but awake and alert, seems to be a bit calmer on today's exam, more comfortable, and no acute distress HEAD: Normocephalic/atraumatic. EYES: Normal reaction of pupils, equal size. Conjunctiva pink, sclera white. NOSE: Clear with pink turbinates. THROAT: No erythema or exudates. NECK: No masses, no JVD, no thyroid enlargement, no adenopathy. CHEST: No chest wall deformity. Symmetrical expansion. LUNGS: Equal air entry with crackles CVS: Regular rate and rhythm, normal S1 and S2, no gallops, no murmurs, no rubs ABDOMEN: Soft, nontender. No hepatosplenomegaly, normal bowel sounds, no guarding or rigidity. EXTREMITIES: No clubbing, no edema, no cyanosis, 2+ pulses and upper and lower extremities. MUSCULOSKELETAL: Muscle strength and tone normal. SPINE: No scoliosis or deformity SKIN: No rashes CENTRAL NERVOUS SYSTEM: Alert and oriented -3. No focal deficits, tone is normal in all 4 extremities. PSYCHIATRIC: Alert and oriented -3. Appropriate affect. Intact judgment and insight. - Labs CBC & Chem 7: 05/05/21 04:44 05/05/21 04:43 Labs: Abnormal Lab Results - Last 24 Hours (Table) 05/05/21 Range/Units 04:43 Sodium 136 L (137-145) mmol/L Calcium 8.2 L (8.4-10.2) mg/dL Microbiology - Last 24 Hours (Table) 05/02/21 10:50 Blood Culture - Preliminary Blood No Growth after 48 hours 05/02/21 10:35 Blood Culture - Preliminary Blood No Growth after 48 hours Assessment and Plan Plan: Assessment: #1. Acute hypoxic respiratory failure related to acute COVID-19 pneumonia, diagnosed 2 weeks ago, and is outside the window for Remdesivir. Started Bariticinib for evidence of severe hypoxic respiratory failure, #2. History of mild intermittent bronchial asthma #3. Acute kidney injury, improved #4. Hypertension #5. Former smoker #6. Mild lactic acidosis #7. Elevated d-dimer without CT evidence of pulmonary embolism Plan: Patient seems to be more comfortable on higher flow oxygen Still very dyspneic with any exertion Continue Baricitinib, renal function is improved on today's labs, we will increase the dose to 4 mg daily Continue steroids Xanax 0.5 mg TID PRN anxiety Same dose Lovenox We will add melatonin 5 mg at bedtime Follow-up chest x-ray in the morning, Given one-time dose Lasix this morning IV fluids to KVO Encourage oral intake Incentive spirometry use, self pronating if able Continue close monitoring in the ICU I performed a history & physical examination of the patient and discussed their management with my nurse practitioner, Leda Dawson. I reviewed the nurse practitioner's note and agree with the documented findings and plan of care. Lung sounds are positive for diminished breath sounds throughout the lung pederson. The findings and the impression was discussed with the patient. I attest to the documentation by the nurse practitioner. Time with Patient: Less than 30
[2021-05-05 10:48] LABS: C Reactive Protein 16.9 mg/dL (<1.0)
--- NOTE | 2021-05-05 13:51 | P.PN ---
Subjective Patient reports feeling the same today. His oxygen requirement is not improving compared to yesterday. He was transferred to the ICU for close monitoring. No acute events overnight. Objective - Vital Signs Vital signs: Vital Signs Temp 98.4 F 05/05/21 12:00 Pulse 74 05/05/21 12:00 Resp 69 H 05/05/21 12:00 BP 128/65 05/05/21 12:00 Pulse Ox 92 L 05/05/21 12:00 Intake & Output 05/04/21 05/05/21 05/05/21 18:59 06:59 18:59 Intake Total 150 1020 230 Output Total 400 1150 1500 Balance -250 -130 -1270 Intake: Intake, IV Titration 150 900 230 Amount Sodium Chloride 0.9% 1, 150 900 230 000 ml @ 20 mls/hr IV . Q24H [facility] Rx#:[id number] Oral 120 Output: Urine 400 1150 1500 Other: Voiding Method Urinal Urinal Urinal - Exam General: The patient is awake and alert, in no distress Eye: there is normal conjunctiva bilaterally. Neck: The neck is supple, there is no JVD. Cardiovascular: Normal S1-S2, no S3-S4, no murmurs. Respiratory: Lungs clear to auscultation bilaterally Gastrointestinal: Abdomen is soft, nontender Musculoskeletal: There is no pedal edema. Neurological:. Speech is normal. Skin: Skin is warm and dry - Labs CBC & Chem 7: 05/05/21 04:44 05/05/21 04:43 Labs: Abnormal Lab Results - Last 24 Hours (Table) 05/05/21 05/05/21 05/05/21 Range/Units 04:43 09:57 09:57 D-Dimer 12.71 H (<0.60) mg/L FEU Sodium 136 L (137-145) mmol/L Calcium 8.2 L (8.4-10.2) mg/dL Lactate Dehydrogenase 2404 H (313-618) U/L C-Reactive Protein 16.9 H (<1.0) mg/dL Microbiology - Last 24 Hours (Table) 05/02/21 10:50 Blood Culture - Preliminary Blood No Growth after 72 hours 05/02/21 10:35 Blood Culture - Preliminary Blood No Growth after 72 hours Assessment and Plan Assessment: 1. COVID-19 pneumonia with diffuse groundglass infiltrate bilaterally 2. Acute hypoxic respiratory failure 3. Elevated d-dimer with no evidence of PE on CT angiogram 4. Hypertensive nephropathy with stage IIIB chronic kidney disease 5. Hypomagnesemia, replaced 6. History of mild intermittent asthma 7. Former smoker Today, I reviewed his medication list and lab work results. Patient is currently on Airvo. Continue albuterol inhaler. Decadron 6 mg IV daily day #4. Vitamin C, vitamin D, and zinc supplements. Magnesium replaced. Patient received aggressive IV fluid hydration. Repeat lab work in the morning. Wendy edwards was seen and evaluated by pulmonology, appreciate recommendations. Repeat chest x-ray diffuse interstitial infiltrate. Overall prognosis is guarded. Patient was started on Olumiant by pulmonary
[2021-05-05] MEDS: MELATONIN 5 MG TABLET PO SCH (21:06)
[2021-05-05] MEDS: ENOXAPARIN 100 MG/ML SYRINGE SQ SCH (21:06)
[2021-05-05] MEDS: BARICITINIB 2 MG TABLET PO SCH (21:06)
[2021-05-05] MEDS: MONTELUKAST 10 MG TAB PO SCH (21:07)
[2021-05-06 06:25] LABS: C Reactive Protein 20.2 mg/dL (<1.0)
--- NOTE | 2021-05-06 06:32 | XR ---
EXAMINATION TYPE: XR chest 1V portable DATE OF EXAM: 05/06/2021 CLINICAL HISTORY: Difficulty breathing progress study. COVID. TECHNIQUE: Single AP portable upright view of the chest is obtained. COMPARISON: Chest x-ray from 2 days earlier. CTA chest 4 days ago. FINDINGS: Reticular and reticulonodular increased opacities bilaterally remain present on background low lung volumes. Mild cardiomegaly redemonstrated. Osseous structures are intact. IMPRESSION: Bilateral multifocal and confluent reticular and reticulonodular opacities consistent wit h covid-19 infection demonstrated, no significant change from most recent study.
[2021-05-06] MEDS: ALBUTEROL HFA INHALER INHALATION PRN (07:47)
[2021-05-06] MEDS ORDERED: FUROSEMIDE 10 MG/ML 4 ML VIAL IV STA (09:00)
[2021-05-06] MEDS: lisinopriL 10 MG TAB PO SCH (09:10)
[2021-05-06] MEDS: CHOLECALCIFEROL 25 MCG (1000 IU) TABLET PO SCH (09:10)
[2021-05-06] MEDS: LORATADINE 10 MG TAB PO SCH (09:10)
[2021-05-06] MEDS: ZINC SULFATE 220 MG CAP PO SCH (09:10)
[2021-05-06] MEDS: MAGNESIUM OXIDE 400 MG TAB PO SCH ×2 (09:10→21:21)
[2021-05-06] MEDS: FAMOTIDINE 20 MG TAB PO SCH (09:10)
[2021-05-06] MEDS: TAMSULOSIN 0.4 MG CAP.ER.24H PO SCH (09:10)
[2021-05-06] MEDS: ASCORBIC ACID 500 MG TAB PO SCH (09:10)
[2021-05-06] MEDS: BISOPROLOL-HCTZ 10-6.25 MG 1 EACH TAB PO SCH (09:12)
[2021-05-06] MEDS: methylPREDNISolone SOD SUCCI 40 MG/ML 1 ML VIAL IV SCH ×2 (09:22→16:42)
[2021-05-06 10:06] LABS: Calcium 8.4 mg/dL (8.4-10.2); Potassium 4.2 mmol/L (3.5-5.1)
[2021-05-06] MEDS: ENOXAPARIN 60 MG/0.6 ML SYRINGE SQ SCH ×2 (10:14→21:21)
[2021-05-06] MEDS: ACETAMINOPHEN TAB 500 MG TAB PO PRN (10:14)
--- NOTE | 2021-05-06 10:33 | P.PN ---
Subjective Patient's overall condition is not improving today. He appeared dyspneic with tachypnea. He still requiring high flow oxygen. Objective - Vital Signs Vital signs: Vital Signs Temp 100.0 F H 05/06/21 08:00 Pulse 91 05/06/21 10:00 Resp 28 H 05/06/21 10:00 BP 129/80 05/06/21 10:00 Pulse Ox 97 05/06/21 10:00 Intake & Output 05/05/21 05/06/21 05/06/21 18:59 06:59 18:59 Intake Total 270 1140 Output Total 2900 320 385 Balance -2630 820 -385 Intake: Intake, IV Titration 270 Amount Sodium Chloride 0.9% 1, 270 000 ml @ 20 mls/hr IV . Q24H [facility] Rx#:[id number] Oral 1140 Output: Urine 2900 320 385 Other: Voiding Method Urinal Urinal # Voids 1 1 # Bowel Movements 1 - Exam General: The patient is awake and alert, in no distress Eye: there is normal conjunctiva bilaterally. Neck: The neck is supple, there is no JVD. Cardiovascular: Normal S1-S2, no S3-S4, no murmurs. Respiratory: Lungs clear to auscultation bilaterally Gastrointestinal: Abdomen is soft, nontender Musculoskeletal: There is no pedal edema. Neurological:. Speech is normal. Skin: Skin is warm and dry - Labs CBC & Chem 7: 05/05/21 04:44 05/06/21 04:19 Labs: Abnormal Lab Results - Last 24 Hours (Table) 05/05/21 05/05/21 05/06/21 Range/Units 09:57 09:57 04:19 D-Dimer 12.71 H 5.18 H (<0.60) mg/L FEU Sodium (137-145) mmol/L Lactate Dehydrogenase 2404 H (313-618) U/L C-Reactive Protein 16.9 H (<1.0) mg/dL 05/06/21 05/06/21 Range/Units 04:19 04:19 D-Dimer (<0.60) mg/L FEU Sodium 134 L (137-145) mmol/L Lactate Dehydrogenase 2479 H (313-618) U/L C-Reactive Protein 20.2 H (<1.0) mg/dL Microbiology - Last 24 Hours (Table) 05/02/21 10:50 Blood Culture - Preliminary Blood No Growth after 72 hours 05/02/21 10:35 Blood Culture - Preliminary Blood No Growth after 72 hours Assessment and Plan Assessment: 1. COVID-19 pneumonia with diffuse groundglass infiltrate bilaterally 2. Acute hypoxic respiratory failure 3. Elevated d-dimer with no evidence of PE on CT angiogram 4. Hypertensive nephropathy with stage IIIB chronic kidney disease 5. Hypomagnesemia, replaced 6. History of mild intermittent asthma 7. Former smoker Today, I reviewed his medication list and lab work results. Patient is currently on Airvo. Plan to switch to BiPAP. Continue albuterol inhaler. Decadron 6 mg IV daily day #5. Vitamin C, vitamin D, and zinc supplements. Magnesium replaced. Patient received aggressive IV fluid hydration. Repeat lab work in the morning. Patient was seen and evaluated by pulmonology, appreciate recommendations. Repeat chest x-ray diffuse interstitial infiltrate. Overall prognosis is guarded. Patient was started on Olumiant by pulmonary
[2021-05-06] MEDS: ENOXAPARIN 100 MG/ML SYRINGE SQ SCH (10:46)
[2021-05-06] MEDS: DEXAMETHASONE SOD PHOSPHATE 10 MG/ML 1 ML VIAL IV SCH (10:47)
--- NOTE | 2021-05-06 12:38 | P.PN ---
Subjective Progress Note Date: 05/06/21 Principal diagnosis: Acute COVID-19 pneumonia This is a 40-year-old the white male patient of Dr. Pope, with history of hypertension, history of mild intermittent bronchial asthma, former smoker, who presented to the emergency department on 05/02/2021 for evaluation of progres sive dyspnea. Patient stated that she was diagnosed with COVID-19 approximately 2 weeks ago, and reports symptoms of fever, chills, shortness of breath which is significantly worse today, to the point where the patient was unable to ambulate. He does report cough with some brown phlegm production. His chest x- ray on admission showed cardiac megaly with multifocal and confluent bilateral opacities and could reflect infiltrates and/or edema. Blood work showed white blood cell count of 9.3, hemoglobin is 15.3, lymphocyte count was 1.0, d-dimer was 1.79, electrolytes were within normal limits, creatinine was 1.52, plasma lactic acid was 2.2, AST was 62, ALT was 23, alkaline phosphatase is 56, CK was 355, troponin was 0.027, proBNP was 187. he was severely hypoxic with a pulse ox of 67% in the emergency department on 6 L of supplemental oxygen, FiO2 was then increased to 15 L high flow and currently his pulse ox is 87-89%. CT angiogram of the chest was completed showing diffuse bilateral groundglass changes compatible with diffuse pneumonia or pneumonitis, no evidence of central pulmonary embolism, exam for secondary distal branches limited by suboptimal enhancement. Patient is outside the window for Remdesivir, patient was started on IV Decadron 6 mg daily, prophylactic dose Lovenox, she was given IV fluids a total of 1 L, and normal saline is infusing and rate of 75 ML per hour. Blood cultures have been sent and pending. he has been afebrile since admission. The patient is seen today 05/03/2021 in follow-up on the regular medical floor. He is currently sitting up at the bedside. Awake and alert. He is in mild respiratory distress. He is requiring 15 L high flow nasal cannula plus a nonrebreather mask to maintain O2 saturation in the 90s. He's been afebrile. Hemodynamically stable. Blood cultures reveal no growth. White count 8.8. Hemoglobin 13.6. Platelets 254. Lymphocyte 0.86. D-dimer 3.73. Sodium 138. Potassium 4.7 and creatinine 1.5. LDH 84. C-reactive protein 12.1. He remains on Bariticinib, Decadron, Lovenox, Singulair, vitamin supplements. He was outside the window for Remdesivir. On today's evaluation on 05/04/2021 patient seen in follow-up on medical surgical floor, he is requiring 15 L high flow nasal cannula in addition to 100% nonrebreather, and his pulse ox is 95% at complete rest, however he easily desaturates with any activity, he is very short of breath, and she states is difficult for him to talk. He did remove his nonrebreather mask and did desaturate quite rapidly to 71%, he has been started On Baricitinib, still on Decadron. He is on prophylactic dose of Lovenox, today's labs have been reviewed his DO NOT RESUSCITATE today is 3.73, his electrolytes and renal profile were within normal limits, LDH is 884, CRP is 12.1. Hepatitis poor, but patient is able to take in some oral intake. Patient's is on and he wants to know what else he can do to improve his oxygenation On today's evaluation on 05/05/2021 patient seen in follow-up in intensive care unit. He is currently on Airvo at 55 L and FiO2 of 90%, and his pulse ox is ranging between 82-93%, overall he states his breathing a bit easier, he seems a bit more relaxed and calm her today. Nursing reports that the intermittent doses of Xanax did help his anxiety and breathlessness. His last fever was yesterday in the morning with a temp of 100.3F, blood pressure has been stable, he continues on 0.9 normal saline at rate 75 ML per hour, he has been started on Baricitinib on all 05/02/2021, and the patient was refusing the dose of 4 mg regarding the concern of his chronic kidney disease. The dose was then dropped to 2 mg daily, which he has been taking. Today's labs have been reviewed, and his renal function has improved since admission, his creatinine is down to 1.10, BUN is 19, his GFR is greater than 90, his sodium is 136, the rest of the electrolytes were unremarkable, his CBC was within normal limits, lymphocyte count is up to 1.1 on today's labs. His LDH and CRP are pending for today, his LDH yesterday was 884, and CRP was 12.1, BNP was 187, his chest x-ray was reviewed today showing stable diffuse bilateral interstitial infiltrates. Patient is also on Decadron 6 mg daily, he is on Lovenox 40 mg daily, he is on vitamins, he last night he was given a dose of melatonin and the nurses felt that it did help him sleep. no acute events overnight. Patient to be doing better with higher flow of oxygen. Reevaluated today on 05/06/2021, patient remains in the ICU, his pulmonary status is very marginal at best. Patient remains on airvo at 55 L flow and 90% FiO2. He is also on the percent nonrebreather mask, and O2 saturation is in the low 90s. Patient is not eating much. He seems to be a bit in distress, hence I recommended switching the patient to BiPAP. Patient will be placed on BiPAP /, and on the percent FiO2. And I have recommended increasing his Solu- Medrol to 40 mg IV push every 6 hours and discontinue Decadron. Chest x-ray showed very minimal change if any, continues to have bilateral diffuse interstitial infiltrates. D-dimer today is down to 5.18 electrolytes are normal his LDH is slightly higher 2479 and CRP is a bit high as 20.2. Blood cultures are negative. Patient remains on the COVID-19 cocktail as well as Barictinib. Lasix was ordered again today 40 mg IV push. Patient is again marginal at best, and he is very well aware that if his condition gets worse, may have to require intubation and mechanical ventilation. Objective - Vital Signs Vital signs: Vital Signs Temp 100.0 F H 05/06/21 08:00 Pulse 80 05/06/21 11:00 Resp 33 H 05/06/21 11:00 BP 129/81 05/06/21 11:00 Pulse Ox 94 L 05/06/21 11:00 Intake & Output 05/05/21 05/06/21 05/06/21 18:59 06:59 18:59 Intake Total 270 1140 Output Total 2900 320 385 Balance -2630 820 -385 Intake: Intake, IV Titration 270 Amount Sodium Chloride 0.9% 1, 270 000 ml @ 20 mls/hr IV . Q24H [facility] Rx#:[id number] Oral 1140 Output: Urine 2900 320 385 Other: Voiding Method Urinal Urinal # Voids 1 1 0 # Bowel Movements 1 - Exam GENERAL EXAM: Alert, 40-year-old white male, currently on Airvo, at 55 L and FiO2 of 90%, with pulse ox between 83-91%, short of breath with conversation and any exertion, mostly bedbound, but awake and alert, seems to be a bit calmer on today's exam, more comfortable, and no acute distress HEAD: Normocephalic/atraumatic. EENT: PERRLA, EOMI, anicteric, no neck masses, no JVD, no stridor. CHEST: No chest wall deformity. Symmetrical expansion. LUNGS: Equal air entry with crackles CVS: Regular rate and rhythm, normal S1 and S2, no gallops, no murmurs, no rubs ABDOMEN: Soft, nontender. No hepatosplenomegaly, normal bowel sounds, no guarding or rigidity. EXTREMITIES: No clubbing, no edema, no cyanosis, 2+ pulses and upper and lower extremities. MUSCULOSKELETAL: Muscle strength and tone normal. SKIN: No rashes CENTRAL NERVOUS SYSTEM: Alert and oriented 3 no gross focal deficits.. PSYCHIATRIC: Depressed mood, appropriate mental status examination. Blunt affect. - Labs CBC & Chem 7: 05/05/21 04:44 05/06/21 04:19 Labs: Abnormal Lab Results - Last 24 Hours (Table) 05/06/21 05/06/21 05/06/21 Range/Units 04:19 04:19 04:19 D-Dimer 5.18 H (<0.60) mg/L FEU Sodium 134 L (137-145) mmol/L Lactate Dehydrogenase 2479 H (313-618) U/L C-Reactive Protein 20.2 H (<1.0) mg/dL Microbiology - Last 24 Hours (Table) 05/02/21 10:50 Blood Culture - Preliminary Blood No Growth after 72 hours 05/02/21 10:35 Blood Culture - Preliminary Blood No Growth after 72 hours Assessment and Plan Assessment: Pression: Acute hypoxic respiratory failure secondary to COVID-19 pneumonia patient was outside the window for REM, but he is receiving BARICTINIB Acute kidney injury, improved. History of mild intermittent asthma. Benign essential hypertension. Former smoker. Elevated inflammatory markers seconded to COVID-19 pneumonia. Recommendation: Discussed and reviewed with the patient his chest x-ray findings, not much of a change. Discussed and reviewed with the patient all his medications that we are giving including barictinib aware that if his condition gets any worse, patient will have to required intubation mechanical ventilation. Continue intermittent placement of the patient in prone position. Continue Lovenox, and adjust according to d-dimer. Continue Xanax. We'll try the patient on BiPAP at 14/6. Continue FiO2 100%. Continue incentive spirometry. Continue droplet precautions and isolation. Prognosis seems to be guarded. Critical care time is over 30 minutes Time with Patient: Greater than 30
[2021-05-06] MEDS: SODIUM CHLORIDE 0.9% 1,000 ML IV SCH (14:00)
[2021-05-06] MEDS ORDERED: MORPHINE SULFATE 2 MG/ML SYRINGE IVP STA (14:26)
[2021-05-06] MEDS ORDERED: LORazepam 2 MG/ML INJ IV STA (18:15)
[2021-05-06 19:37] LABS: ABG Base Excess -0.9 mmol/L; ABG HCO3 23 mmol/L (21-25); ABG Oxygen Saturation 94.2 % (94-97); ABG PCO2 34 mmHg (35-45); ABG PH 7.44 (7.35-7.45); ABG PO2 88 mmHg (83-108); ABG TCO2 24 mmol/L (19-24); Allen Test Performed? Yes
[2021-05-06] MEDS ORDERED: MORPHINE SULFATE 4 MG/ML SYRINGE IVP STA (20:57)
[2021-05-06] MEDS ORDERED: MORPHINE SULFATE 4 MG/ML SYRINGE ONE (21:02)
[2021-05-06] MEDS: DEXMEDETOMIDINE/0.9% NACL(PMX) 400 MCG in EMPTY BAG 1 BAG IV SCH (21:20)
[2021-05-06] MEDS: BARICITINIB 2 MG TABLET PO SCH (21:20)
[2021-05-06] MEDS: MONTELUKAST 10 MG TAB PO SCH (21:21)
[2021-05-06] MEDS: MELATONIN 5 MG TABLET PO SCH (21:21)
[2021-05-07] MEDS: methylPREDNISolone SOD SUCCI 40 MG/ML 1 ML VIAL IV SCH ×4 (01:14→22:36)
[2021-05-07] MEDS: ALPRAZolam 0.5 MG TAB PO PRN (01:24)
[2021-05-07] MEDS: DEXMEDETOMIDINE/0.9% NACL(PMX) 400 MCG in EMPTY BAG 1 BAG IV SCH (04:18)
[2021-05-07 04:54] LABS: Basophils % (A) 0 %; Eosinophils % (A) 0 %; HCT 45.1 % (39.0-53.0); Lymphocytes # (A) 0.6 k/uL (1.0-4.8); Lymphocytes % (A) 4 %; MCH 27.6 pg (25.0-35.0); MCHC 33.3 g/dL (31.0-37.0); MCV 82.9 fL (80.0-100.0); Mean Platelet Volume 8.1; Monocytes # (A) 0.3 k/uL (0-1.0); Monocytes % (A) 2 %; Neutrophils # (A) 16.9 k/uL (1.3-7.7); Neutrophils % (A) 94 %; Platelet Count 287 k/uL (150-450); RBC 5.44 m/uL (4.30-5.90); WBC 17.9 k/uL (3.8-10.6)
[2021-05-07 05:11] LABS: Calcium 8.3 mg/dL (8.4-10.2)
[2021-05-07 05:28] LABS: C Reactive Protein 20.2 mg/dL (<1.0)
--- NOTE | 2021-05-07 07:23 | XR ---
EXAMINATION TYPE: XR chest 1V portable DATE OF EXAM: 05/07/2021 CLINICAL HISTORY: Difficulty breathing and covid progress study. TECHNIQUE: Single AP portable upright view of the chest is obtained. COMPARISON: Chest x-ray from one day earlier and older studies. FINDINGS: Bilateral reticular increased opacities remain present . Mild cardiomegaly redemonstrated . Osseous structures are intact. IMPRESSION: Bilateral multifocal and confluent reticular opacities consistent with covid-19 infection redemonstrated, no significant change from one day earlier.
[2021-05-07] MEDS ORDERED: propofoL 100 ML IV ONE (08:22)
[2021-05-07] MEDS ORDERED: ATROPINE SULFATE 0.1 MG/ML 10ML SYRINGE ONE (09:02)
[2021-05-07] MEDS ORDERED: CISATRACURIUM 2 MG/ML 5 ML VIAL IV ONE ×2 (09:17→09:22)
--- NOTE | 2021-05-07 09:35 | XR ---
EXAMINATION TYPE: XR chest 1V portable DATE OF EXAM: 05/07/2021 CLINICAL HISTORY: Difficulty breathing had to be intubated. TECHNIQUE: Single AP portable supine view of the chest is obtained. COMPARISON: Chest x-ray from earlier today FINDINGS: New Endotracheal tube terminates at inferior clavicular level approximately 6 cm above car wood. New orogastric tube projects below diaphragm. Persistent bilateral reticular increased opacities remain present . Stable mild cardiomegaly. Osseou s structures are intact. IMPRESSION: 1. New ET and OGT satisfactory in position. 2. Persistent Bilateral multifocal and confluent reticular opacities consistent with covid-19 infecti on redemonstrated, no significant change from earlier today.
[2021-05-07] MEDS: CISATRACURIUM 200 MG in SODIUM CHLORIDE 0.9% 180 ML IV SCH (09:55)
--- NOTE | 2021-05-07 09:59 | P.PN ---
Subjective Patient was intubated this morning. His respiratory status was worse given tachypnea and increased work of breathing. Objective - Vital Signs Vital signs: Vital Signs Temp 97.8 F 05/07/21 04:00 Pulse 60 05/07/21 08:00 Resp 42 H 05/07/21 08:00 BP 123/78 05/07/21 08:00 Pulse Ox 88 L 05/07/21 08:00 Intake & Output 05/06/21 05/07/21 05/07/21 18:59 06:59 18:59 Intake Total 80 903.553 40 Output Total 967 200 475 Balance -887 703.553 -435 Intake: IV 80 220 40 Sodium Chloride 0.9% 1, 80 220 40 000 ml @ 20 mls/hr IV . Q24H [facility] Rx#:[id number] Intake, IV Titration 3.553 Amount Dexmedetomidine/0.9% NaCl 3.553 (Pmx) 400 mcg In Empty Bag 1 bag @ Titrate IV . Q0M [facility] Rx#:[id number] Oral 680 Output: Urine 967 200 475 Other: Voiding Method Urinal Urinal # Voids 0 0 0 # Bowel Movements 1 - Exam General: The patient is sedated and intubated Eye: there is normal conjunctiva bilaterally. Neck: The neck is supple, there is no JVD. Cardiovascular: Normal S1-S2, no S3-S4, no murmurs. Respiratory: Lungs with mechanical ventilator sounds Gastrointestinal: Abdomen is soft, nontender Musculoskeletal: There is no pedal edema. Skin: Skin is warm and dry - Labs CBC & Chem 7: 05/07/21 04:27 05/07/21 04:27 Labs: Abnormal Lab Results - Last 24 Hours (Table) 05/06/21 05/06/21 05/07/21 Range/Units 04:19 19:35 04:27 WBC (3.8-10.6) k/uL Neutrophils # (1.3-7.7) k/uL Lymphocytes # (1.0-4.8) k/uL D-Dimer 3.87 H (<0.60) mg/L FEU ABG pCO2 34 L (35-45) mmHg Sodium 134 L (137-145) mmol/L Carbon Dioxide (22-30) mmol/L BUN (9-20) mg/dL Glucose (74-99) mg/dL Calcium (8.4-10.2) mg/dL Lactate Dehydrogenase (313-618) U/L C-Reactive Protein (<1.0) mg/dL 05/07/21 05/07/21 Range/Units 04:27 04:27 WBC 17.9 H (3.8-10.6) k/uL Neutrophils # 16.9 H (1.3-7.7) k/uL Lymphocytes # 0.6 L (1.0-4.8) k/uL D-Dimer (<0.60) mg/L FEU ABG pCO2 (35-45) mmHg Sodium 132 L (137-145) mmol/L Carbon Dioxide 21 L (22-30) mmol/L BUN 33 H (9-20) mg/dL Glucose 129 H (74-99) mg/dL Calcium 8.3 L (8.4-10.2) mg/dL Lactate Dehydrogenase 1959 H (313-618) U/L C-Reactive Protein 20.2 H (<1.0) mg/dL Microbiology - Last 24 Hours (Table) 05/02/21 10:50 Blood Culture - Preliminary Blood No Growth after 96 hours 05/02/21 10:35 Blood Culture - Preliminary Blood No Growth after 96 hours Assessment and Plan Assessment: 1. COVID-19 pneumonia with diffuse groundglass infiltrate bilaterally 2. Acute hypoxic respiratory failure, worsening since condition with dyspnea and increased work of breathing requiring intubation and mechanical ventilation on 05/07 3. Elevated d-dimer with no evidence of PE on CT angiogram 4. Hypertensive nephropathy with stage IIIB chronic kidney disease 5. Hypomagnesemia, replaced 6. History of mild intermittent asthma 7. Former smoker Today, I reviewed his medication list and lab work results. Steroid day #6 managed by pulmonary currently on IV Solu-Medrol. Vitamin C, vitamin D, and zinc supplements. Repeat chest x-ray diffuse interstitial infiltrate. Overall prognosis is guarded. Patient was started on Olumiant by pulmonary GI prophylaxis with IV Protonix DVT prophylaxis with Lovenox managed by pulmonary
--- NOTE | 2021-05-07 10:04 | XR ---
EXAMINATION TYPE: XR chest 1V portable DATE OF EXAM: 05/07/2021 CLINICAL HISTORY: Central line placement. TECHNIQUE: Single AP portable frontal view of the chest is obtained. COMPARISON: Chest x-ray from earlier today FINDINGS: New Right internal jugular central Venous catheter terminates in right atrium. No pneumot horax noted. Stable endotracheal and orogastric tubes. Persistent bilateral reticular increased opacities remain present without significant interval flores e from earlier today. Stable mild cardiomegaly. Osseous structures are intact. IMPRESSION: As above.
[2021-05-07] MEDS: ZINC SULFATE 220 MG CAP PO SCH (10:11)
[2021-05-07] MEDS: CHOLECALCIFEROL 25 MCG (1000 IU) TABLET PO SCH (10:11)
[2021-05-07] MEDS: ASCORBIC ACID 500 MG TAB PO SCH (10:11)
[2021-05-07] MEDS: lisinopriL 10 MG TAB PO SCH (10:11)
[2021-05-07] MEDS: TAMSULOSIN 0.4 MG CAP.ER.24H PO SCH (10:11)
[2021-05-07] MEDS: FAMOTIDINE 20 MG TAB PO SCH (10:11)
[2021-05-07] MEDS: BISOPROLOL-HCTZ 10-6.25 MG 1 EACH TAB PO SCH (10:14)
[2021-05-07] MEDS: MAGNESIUM OXIDE 400 MG TAB PO SCH ×2 (10:23→19:52)
[2021-05-07] MEDS: ENOXAPARIN 60 MG/0.6 ML SYRINGE SQ SCH ×2 (10:28→19:53)
[2021-05-07] MEDS: fentaNYL (PF). 1,000 MCG in SODIUM CHLORIDE 0.9% 80 ML IV SCH ×2 (10:39→19:03)
[2021-05-07 11:01] LABS: ABG Base Excess -0.2 mmol/L; ABG HCO3 28 mmol/L (21-25); ABG PCO2 70 mmHg (35-45); ABG PH 7.21 (7.35-7.45); ABG PO2 123 mmHg (83-108); ABG TCO2 30 mmol/L (19-24); Allen Test Performed? Yes
[2021-05-07] MEDS: LORATADINE 10 MG TAB PO SCH (11:37)
[2021-05-07 11:58] LABS: Glucose,Whole Blood 143 mg/dL (75-99)
--- NOTE | 2021-05-07 12:38 | PCN ---
PROCEDURE NOTE PLACEMENT OF A LEFT RADIAL ARTERIAL LINE: PREOPERATIVE DIAGNOSIS: Acute hypoxic respiratory failure secondary to Covid 19 pneumonia. POSTOPERATIVE DIAGNOSIS: Acute hypoxic respiratory failure secondary to Covid 19 pneumonia. ANESTHESIA: None deployed. PROCEDURE DETAILS: The patient was placed in the supine position, the left wrist was prepared in a sterile fashion. Drapes were applied. Left radial artery was palpated, cannulated, a guidewire was placed. Cook's catheter was inserted over the guidewire. The guidewire was removed, there was good blood flow, good waveform, and no complications. Line was secured using 3.0 silk sutures. MMODL / IJN: [id number] /
--- NOTE | 2021-05-07 12:51 | P.PN ---
Subjective Progress Note Date: 05/07/21 Principal diagnosis: Acute hypoxic respiratory failure and acute COVID-19 pneumonia This is a 40-year-old the white male patient of Dr. Pope, with history of hypertension, history of mild intermittent bronchial asthma, former smoker, who presented to the emergency department on 05/02/2021 for evaluation of progressive dyspnea. Patient stated that she was diagnosed with COVID-19 approximately 2 weeks ago, and reports symptoms of fever, chills, shortness of breath which is significantly worse today, to the point where the patient was unable to ambulate. He does report cough with some brown phlegm production. His chest x-ray on admission showed cardiac megaly with multifocal and confluent bilateral opacities and could reflect infiltrates and/or edema. Blood work steven wed white blood cell count of 9.3, hemoglobin is 15.3, lymphocyte count was 1.0, d-dimer was 1.79, electrolytes were within normal limits, creatinine was 1.52, plasma lactic acid was 2.2, AST was 62, ALT was 23, alkaline phosphatase is 56, CK was 355, troponin was 0.027, proBNP was 187. he was severely hypoxic with a pulse ox of 67% in the emergency department on 6 L of supplemental oxygen, FiO2 was then increased to 15 L high flow and currently his pulse ox is 87-89%. CT angiogram of the chest was completed showing diffuse bilateral groundglass changes compatible with diffuse pneumonia or pneumonitis, no evidence of central pulmonary embolism, exam for secondary distal branches limited by suboptimal enhancement. Patient is outside the window for Remdesivir, patient was started on IV Decadron 6 mg daily, prophylactic dose Lovenox, she was given IV fluids a total of 1 L, and normal saline is infusing and rate of 75 ML per hour. Blood cultures have been sent and pending. he has been afebrile since admission. The patient is seen today 05/03/2021 in follow-up on the regular medical floor. He is currently sitting up at the bedside. Awake and alert. He is in mild respiratory distress. He is requiring 15 L high flow nasal cannula plus a nonrebreather mask to maintain O2 saturation in the 90s. He's been afebrile. Hemodynamically stable. Blood cultures reveal no growth. White count 8.8. Hemoglobin 13.6. Platelets 254. Lymphocyte 0.86. D-dimer 3.73. Sodium 138. Potassium 4.7 and creatinine 1.5. LDH 84. C-reactive protein 12.1. He remains on Bariticinib, Decadron, Lovenox, Singulair, vitamin supplements. He was outside the window for Remdesivir. On today's evaluation on 05/04/2021 patient seen in follow-up on medical surgical floor, he is requiring 15 L high flow nasal cannula in addition to 100% nonrebreather, and his pulse ox is 95% at complete rest, however he easily desaturates with any activity, he is very short of breath, and she states is difficult for him to talk. He did remove his nonrebreather mask and did desaturate quite rapidly to 71%, he has been started On Baricitinib, still on Decadron. He is on prophylactic dose of Lovenox, today's labs have been reviewed his DO NOT RESUSCITATE today is 3.73, his electrolytes and renal profile were within normal limits, LDH is 884, CRP is 12.1. Hepatitis poor, but patient is able to take in some oral intake. Patient's is on and he wants to know what else he can do to improve his oxygenation On today's evaluation on 05/05/2021 patient seen in follow-up in intensive care unit. He is currently on Airvo at 55 L and FiO2 of 90%, and his pulse ox is ranging between 82-93%, overall he states his breathing a bit easier, he seems a bit more relaxed and calm her today. Nursing reports that the intermittent doses of Xanax did help his anxiety and breathlessness. His last fever was yesterday in the morning with a temp of 100.3F, blood pressure has been stable, he continues on 0.9 normal saline at rate 75 ML per hour, he has been started on Baricitinib on all 05/02/2021, and the patient was refusing the dose of 4 mg regarding the concern of his chronic kidney disease. The dose was then dropped to 2 mg daily, which he has been taking. Today's labs have been reviewed, and his renal function has improved since admission, his creatinine is down to 1.10, BUN is 19, his GFR is greater than 90, his sodium is 136, the rest of the electrolytes were unremarkable, his CBC was within normal limits, lymphocyte count is up to 1.1 on today's labs. His LDH and CRP are pending for today, his LDH yesterday was 884, and CRP was 12.1, BNP was 187, his chest x-ray was reviewed today showing stable diffuse bilateral interstitial infiltrates. Patient is also on Decadron 6 mg daily, he is on Lovenox 40 mg daily, he is on vitamins, he last night he was given a dose of melatonin and the nurses felt that it did help him sleep. no acute events overnight. Patient to be doing better with higher flow of oxygen. Reevaluated today on 05/06/2021, patient remains in the ICU, his pulmonary status is very marginal at best. Patient remains on airvo at 55 L flow and 90% FiO2. He is also on the percent nonrebreather mask, and O2 saturation is in the low 90s. Patient is not eating much. He seems to be a bit in distress, hence I recommended switching the patient to BiPAP. Patient will be placed on BiPAP 14/6, and on the percent FiO2. And I have recommended increasing his Solu- Medrol to 40 mg IV push every 6 hours and discontinue Decadron. Chest x-ray showed very minimal change if any, continues to have bilateral diffuse interstitial infiltrates. D-dimer today is down to 5.18 electrolytes are normal his LDH is slightly higher 2479 and CRP is a bit high as 20.2. Blood cultures are negative. Patient remains on the COVID-19 cocktail as well as Barictinib. Lasix was ordered again today 40 mg IV push. Patient is again marginal at best, and he is very well aware that if his condition gets worse, may have to require intubation and mechanical ventilation. Patient was reevaluated today on 05/07/2021, patient had significant deterioration of his pulmonary status over the last 24 hours. Patient was on BiPAP through the night, he required the Precedex, and he required morphine last night, his pulmonary status remains marginal, and his O2 saturation was in the 80s at best. I saw this patient this morning, he was extremely tachypneic, he had shallow breathing, and he was basically tiring out. He was using his accessory muscles, and I had a discussion with the patient about his condition, and explained time that he is definitely having pelvis intubation and mechanical ventilation. Patient agreed to be intubated. At his pulmonary status seems to be getting much worse. Patient was intubated by [employer]. Placed on mechanical ventilation. His ventilator settings initially with assist control rate of 30 and volume 400 FiO2 on the percent and PEEP of 12. ABG repeated within an hour showed a pO2 of 123 pCO2 of 70 pH of 7.2. Hence his rate was increased to 36 and FiO2 cut down to 80%. The PEEP at 12. Patient had to be placed on Nimbex and he was extremely agitated and unable to tolerate the endotracheal tube. And he was poorly ventilated because of gagging on the endotracheal tube. Patient was placed on propofol, fentanyl, and Nimbex. We'll repeat ABG in the next few hours. Clearly the patient failed noninvasive form of positive pressure ventilation, and he required intubation and mechanical ventilation. After intubating the patient, patient had a central line placed and arterial line placed. And we will continue with the COVID-19 cocktail. Continue the same treatment. ABC today showed evidence of 17.9 hemoglobin of 15 d-dimer is down to 3.87. Creatinine 1.18. LDH is down to 1959 and C-reactive protein is about the same 20.2. Objective - Vital Signs Vital signs: Vital Signs Temp 97.8 F 05/07/21 04:00 Pulse 84 05/07/21 11:00 Resp 37 H 05/07/21 11:00 BP 125/63 05/07/21 11:00 Pulse Ox 95 05/07/21 11:00 Intake & Output 05/06/21 05/07/21 05/07/21 18:59 06:59 18:59 Intake Total 80 903.553 98.867 Output Total 967 200 875 Balance -887 703.553 -776.133 Intake: IV 80 220 80 Sodium Chloride 0.9% 1, 80 220 80 000 ml @ 20 mls/hr IV . Q24H [facility] Rx#:[id number] Intake, IV Titration 3.553 18.867 Amount Cisatracurium 200 mg In 10.919 Sodium Chloride 0.9% 180 ml @ 1 MCG/KG/MIN 6.123 mls/hr IV .Q24H [facility] Rx#: [id number] Dexmedetomidine/0.9% NaCl 3.553 7.948 (Pmx) 400 mcg In Empty Bag 1 bag @ Titrate IV . Q0M [facility] Rx#:[id number] propofoL 1,000 mg In 0 Empty Bag 1 bag @ Titrate IV .Q0M [facility] Rx#: [id number] Oral 680 Output: Urine 967 200 875 Other: Voiding Method Urinal Urinal # Voids 0 0 0 # Bowel Movements 1 ABP, PAP, CO, CI - Last Documented Arterial Blood Pressure 123/68 - Exam GENERAL EXAM: Alert, 40-year-old white male, in severe respiratory distress, noted to be quite tachypneic, and has shallow breathing in spite of being on BiPAP. Using accessory muscles to breathe. HEAD: Normocephalic/atraumatic. EENT: PERRLA, EOMI, anicteric, no neck masses, no JVD, no stridor. CHEST: No chest wall deformity. Symmetrical expansion. LUNGS: Crackles at the bases, no rhonchi no wheezes. CVS: Regular rate and rhythm, normal S1 and S2, no gallops, no murmurs, no rubs ABDOMEN: Soft, nontender. No hepatosplenomegaly, normal bowel sounds, no guard ing or rigidity. EXTREMITIES: No clubbing, no edema, no cyanosis, 2+ pulses and upper and lower extremities. MUSCULOSKELETAL: Muscle strength and tone normal. SKIN: No rashes CENTRAL NERVOUS SYSTEM: Alert and oriented 3 no gross focal deficits.. PSYCHIATRIC: Anxious mood, appropriate mental status examination. Blunt affect. - Labs CBC & Chem 7: 05/07/21 04:27 05/07/21 04:27 Labs: Abnormal Lab Results - Last 24 Hours (Table) 05/06/21 05/07/21 05/07/21 Range/Units 19:35 04:27 04:27 WBC (3.8-10.6) k/uL Neutrophils # (1.3-7.7) k/uL Lymphocytes # (1.0-4.8) k/uL D-Dimer 3.87 H (<0.60) mg/L FEU ABG pH (7.35-7.45) ABG pCO2 34 L (35-45) mmHg ABG pO2 (83-108) mmHg ABG HCO3 (21-25) mmol/L ABG Total CO2 (19-24) mmol/L Sodium 132 L (137-145) mmol/L Carbon Dioxide 21 L (22-30) mmol/L BUN 33 H (9-20) mg/dL Glucose 129 H (74-99) mg/dL POC Glucose (mg/dL) (75-99) mg/dL Calcium 8.3 L (8.4-10.2) mg/dL Lactate Dehydrogenase 1959 H (313-618) U/L C-Reactive Protein 20.2 H (<1.0) mg/dL 05/07/21 05/07/21 05/07/21 Range/Units 04:27 10:53 11:56 WBC 17.9 H (3.8-10.6) k/uL Neutrophils # 16.9 H (1.3-7.7) k/uL Lymphocytes # 0.6 L (1.0-4.8) k/uL D-Dimer (<0.60) mg/L FEU ABG pH 7.21 L (7.35-7.45) ABG pCO2 70 H (35-45) mmHg ABG pO2 123 H (83-108) mmHg ABG HCO3 28 H (21-25) mmol/L ABG Total CO2 30 H (19-24) mmol/L Sodium (137-145) mmol/L Carbon Dioxide (22-30) mmol/L BUN (9-20) mg/dL Glucose (74-99) mg/dL POC Glucose (mg/dL) 143 H (75-99) mg/dL Calcium (8.4-10.2) mg/dL Lactate Dehydrogenase (313-618) U/L C-Reactive Protein (<1.0) mg/dL Microbiology - Last 24 Hours (Table) 05/02/21 10:50 Blood Culture - Preliminary Blood No Growth after 96 hours 05/02/21 10:35 Blood Culture - Preliminary Blood No Growth after 96 hours Assessment and Plan Assessment: Pression: Acute hypoxic respiratory failure secondary to COVID-19 pneumonia , failed possibly pressure ventilation, required intubation and mechanical ventilation today on 05/07/2021. Acute kidney injury, improved. History of mild intermittent asthma. Benign essential hypertension. Former smoker. Elevated inflammatory markers seconded to COVID-19 pneumonia. Recommendation: Intubation and mechanical ventilation. Central line placement for IV infusions. Arterial line placement for hemodynamic monitoring. Ventilatory settings adjustment based on the next ABG.. Continue Lovenox, and adjust according to d-dimer. Sedation using propofol, fentanyl, and most likely we will need to use Nimbex. Enteral feeding to be started today. Daily monitoring of chest x-ray, ABG, and multiple labs. Including inflammatory markers. Continue droplet precautions and isolation. Prognosis seems to be poor. Critical care time is over 30 minutes , not including the time placed on procedures Time with Patient: Greater than 30
--- NOTE | 2021-05-07 13:28 | OP ---
OPERATIVE REPORT OPERATIVE REPORT: Placement of right IJ triple-lumen catheter/central line. PREOPERATIVE DIAGNOSIS: Acute hypoxic respiratory failure secondary to COVID-19 pneumonia. POSTOPERATIVE DIAGNOSIS: Acute hypoxic respiratory failure secondary to COVID-19 pneumonia. ANESTHESIA USED: 2 mL of 1% lidocaine. PROCEDURE DESCRIPTION: The patient was placed in supine position. The area of the right cervical region was prepared in a sterile fashion and drapes were applied. Using the posterior approach, the area was locally anesthetized. Then the right internal jugular vein was easily cannulated, and a guidewire was placed. The area around the guidewire was dilated. Then a triple-lumen catheter was inserted over the guidewire, and the guidewire was removed. Good blood flow was noted. Line was secured using 3.0 silk sutures. No evidence of any immediate complications, and there was no blood loss. Chest x-ray postoperatively showed adequate placement and no complications. Again, this was done on an emergent basis because of the sudden deterioration of his respiratory status, and the patient needed to be on multiple drips. MMJUAN / DIANAN: [id number] /
[2021-05-07] MEDS: SODIUM CHLORIDE 0.9% 1,000 ML IV SCH (14:20)
[2021-05-07 17:47] LABS: Glucose,Whole Blood 146 mg/dL (75-99)
[2021-05-07] MEDS: MELATONIN 5 MG TABLET PO SCH (19:52)
[2021-05-07] MEDS: CHLORHEXIDINE GLUCONATE 15 ML CUP MUCOUS MEM SCH (19:52)
[2021-05-07] MEDS: MONTELUKAST 10 MG TAB PO SCH (19:52)
[2021-05-07] MEDS: BARICITINIB 2 MG TABLET PO SCH (19:52)
[2021-05-08] MEDS: CISATRACURIUM 200 MG in SODIUM CHLORIDE 0.9% 180 ML IV SCH ×2 (01:38→17:26)
[2021-05-08] MEDS: fentaNYL (PF). 1,000 MCG in SODIUM CHLORIDE 0.9% 80 ML IV SCH ×2 (02:56→17:21)
[2021-05-08 03:58] LABS: Basophils % (A) 0 %; Eosinophils % (A) 0 %; HCT 49.2 % (39.0-53.0); HGB 15.5 gm/dL (13.0-17.5); Hypochromasia Slight; Lymphocytes # (A) 0.3 k/uL (1.0-4.8); Lymphocytes % (A) 2 %; MCH 27.5 pg (25.0-35.0); MCHC 31.6 g/dL (31.0-37.0); MCV 86.9 fL (80.0-100.0); Mean Platelet Volume 7.8; Monocytes # (A) 0.5 k/uL (0-1.0); Monocytes % (A) 2 %; Neutrophils # (A) 19.6 k/uL (1.3-7.7); Neutrophils % (A) 96 %; Platelet Count 355 k/uL (150-450); RBC 5.65 m/uL (4.30-5.90); WBC 20.5 k/uL (3.8-10.6)
[2021-05-08 04:34] LABS: African American GFR (CKD) >90 (>60 ml/min/1.73 sqM); Anion Gap 7 mmol/L; Blood Urea Nitrogen 29 mg/dL (9-20); Calcium 8.2 mg/dL (8.4-10.2); Carbon Dioxide 29 mmol/L (22-30); Chloride 100 mmol/L (98-107); Creatine Kinase 28 U/L (55-170); Glucose 142 mg/dL (74-99); LDH 1548 U/L (313-618); Non-African American GFR(CKD) 78 (>60 ml/min/1.73 sqM); Sodium 136 mmol/L (137-145)
[2021-05-08 04:45] LABS: C Reactive Protein 15.6 mg/dL (<1.0)
[2021-05-08 04:54] LABS: Potassium 6.6 mmol/L (3.5-5.1)
[2021-05-08] MEDS ORDERED: SODIUM BICARB 8.4% 50 ML SYR (1 MEQ/ML) IV STA (05:17)
[2021-05-08] MEDS ORDERED: SODIUM POLYSTYRENE SULFONATE 15 GM/60 ML BOTTLE PO STA (05:17)
[2021-05-08] MEDS ORDERED: FUROSEMIDE 10 MG/ML 4 ML VIAL IV STA (05:17)
[2021-05-08] MEDS ORDERED: CALCIUM GLUCONATE 1 GM in SODIUM CHLORIDE 0.9% 100 ML IVPB ONE (05:17)
[2021-05-08] MEDS ORDERED: DEXTROSE 50% SYRINGE 50 ML IVP STA (05:17)
[2021-05-08] MEDS ORDERED: INSULIN REGULAR 100 UNIT/ML VIAL (IV) IV ONE (05:17)
[2021-05-08 05:41] LABS: ABG Base Excess 4.3 mmol/L; ABG HCO3 32 mmol/L (21-25); ABG PH 7.21 (7.35-7.45); ABG PO2 85 mmHg (83-108); ABG TCO2 35 mmol/L (19-24)
[2021-05-08 06:04] LABS: ABG PCO2 81 mmHg (35-45); Allen Test Performed? no
[2021-05-08] MEDS: DEXTROSE 5% IN WATER 1,000 ML with SODIUM BICARB (1 MEQ/ML) 150 ML IV SCH (06:14)
--- NOTE | 2021-05-08 07:48 | XR ---
EXAMINATION TYPE: XR chest 1V portable DATE OF EXAM: 05/08/2021 COMPARISON: 05/07/2021 HISTORY: Shortness of breath TECHNIQUE: Single frontal view of the chest is obtained. FINDINGS: Right internal jugular central Venous catheter terminates in right atrium. No pneumothorax noted. Stable endotracheal and orogastric tubes. Persistent bilateral reticular increased opacities remain present without significant interval change from earlier today. Stable mild cardiomegaly. Osse ous structures are intact. IMPRESSION: Stable diffuse interstitial pattern with basilar infiltrate and small effusion correlate for CHF versus diffuse interstitial pneumonia.
--- NOTE | 2021-05-08 09:40 | XR ---
EXAMINATION TYPE: XR chest 1V portable DATE OF EXAM: 05/08/2021 COMPARISON: 05/08/2021 HISTORY: ET and NG tube placement TECHNIQUE: Single frontal view of the chest is obtained. FINDINGS: Diffuse interstitial pattern. Heart size stable. No pneumothorax. Central line seen to tip overlying cavoatrial junction. NG tube seen coursing into the abdomen. ET tube approximately 4.8 cm above daniel. Left basilar infiltrate noted. IMPRESSION: 1. Diffuse interstitial pattern with left basilar infiltrate. Correlate for a diffuse interstitial pn eumonia versus CHF. 2. ET tube approximately 4.8 cm above daniel.
[2021-05-08] MEDS: ENOXAPARIN 60 MG/0.6 ML SYRINGE SQ SCH ×2 (10:19→19:58)
[2021-05-08] MEDS: methylPREDNISolone SOD SUCCI 40 MG/ML 1 ML VIAL IV SCH ×3 (10:19→23:11)
[2021-05-08] MEDS: TAMSULOSIN 0.4 MG CAP.ER.24H PO SCH (10:19)
[2021-05-08] MEDS: ASCORBIC ACID 500 MG TAB PO SCH (10:19)
[2021-05-08] MEDS: PANTOPRAZOLE 40 MG/10 ML VIAL IVP SCH (10:19)
[2021-05-08] MEDS: BISOPROLOL-HCTZ 10-6.25 MG 1 EACH TAB PO SCH (10:19)
[2021-05-08] MEDS: ZINC SULFATE 220 MG CAP PO SCH (10:19)
[2021-05-08] MEDS: CHLORHEXIDINE GLUCONATE 15 ML CUP MUCOUS MEM SCH ×2 (10:19→19:58)
[2021-05-08] MEDS: MAGNESIUM OXIDE 400 MG TAB PO SCH ×2 (10:20→19:57)
[2021-05-08] MEDS: CHOLECALCIFEROL 25 MCG (1000 IU) TABLET PO SCH (10:20)
--- NOTE | 2021-05-08 11:48 | P.PN ---
Subjective Patient was seen and evaluated by me this morning. He is sedated and intubated. His deep was increased overnight as his blood gas did not improve. Patient was also noted to be hyperkalemic with a potassium level of 6.6 this morning. This was treated medically awaiting repeat lab work. Objective - Vital Signs Vital signs: Vital Signs Temp 99.2 F 05/08/21 08:00 Pulse 96 05/08/21 11:00 Resp 36 H 05/08/21 11:00 BP 125/63 05/07/21 11:00 Pulse Ox 89 L 05/08/21 11:00 Intake & Output 05/07/21 05/08/21 05/08/21 18:59 06:59 18:59 Intake Total 592.818 7438.709 392 Output Total 2125 1950 800 Balance -1482.254 -710.291 -408 Weight 100.4 kg 100.4 kg Intake: IV 381 559 92 ART line 21 39 12 Sodium Chloride 0.9% 1, 360 520 80 000 ml @ 20 mls/hr IV . Q24H [facility] Rx#:[id number] Intake, IV Titration 261.746 680.709 300 Amount Cisatracurium 200 mg In 48.679 87.564 Sodium Chloride 0.9% 180 ml @ 1 MCG/KG/MIN 6.123 mls/hr IV .Q24H [facility] Rx#: [id number] Dexmedetomidine/0.9% NaCl 7.948 (Pmx) 400 mcg In Empty Bag 1 bag @ Titrate IV . Q0M [facility] Rx#:[id number] Dextrose 5% in Water 1, 200 000 ml @ 50 mls/hr IV . Q23H [facility] with Sodium Bicarb (1 Meq/ml) 150 ml Rx#:[id number] fentaNYL (PF). 1,000 mcg 19.391 127.405 In Sodium Chloride 0.9% 80 ml @ Per Protocol IV . Q0M [facility] Rx#:[id number] propofoL 1,000 mg In 185.728 465.74 100 Empty Bag 1 bag @ Titrate IV .Q0M [facility] Rx#: [id number] Output: Urine 2125 1950 800 Other: Voiding Method Indwelling Catheter Indwelling Catheter # Voids 0 ABP, PAP, CO, CI - Last Documented Arterial Blood Pressure 152/70 - Exam General: The patient is sedated and intubated Eye: there is normal conjunctiva bilaterally. Neck: The neck is supple, there is no JVD. Cardiovascular: Normal S1-S2, no S3-S4, no murmurs. Respiratory: Lungs with mechanical ventilator sounds Gastrointestinal: Abdomen is soft, nontender Musculoskeletal: There is no pedal edema. Skin: Skin is warm and dry - Labs CBC & Chem 7: 05/08/21 03:45 05/08/21 03:45 Labs: Abnormal Lab Results - Last 24 Hours (Table) 05/07/21 05/07/21 05/08/21 Range/Units 11:56 17:46 03:45 WBC (3.8-10.6) k/uL Neutrophils # (1.3-7.7) k/uL Lymphocytes # (1.0-4.8) k/uL D-Dimer 3.13 H (<0.60) mg/L FEU ABG pH (7.35-7.45) ABG pCO2 (35-45) mmHg ABG HCO3 (21-25) mmol/L ABG Total CO2 (19-24) mmol/L ABG O2 Saturation (94-97) % Sodium (137-145) mmol/L Potassium (3.5-5.1) mmol/L BUN (9-20) mg/dL Glucose (74-99) mg/dL POC Glucose (mg/dL) 143 H 146 H (75-99) mg/dL Calcium (8.4-10.2) mg/dL Lactate Dehydrogenase (313-618) U/L Creatine Kinase (55-170) U/L C-Reactive Protein (<1.0) mg/dL 05/08/21 05/08/21 05/08/21 Range/Units 03:45 03:45 05:39 WBC 20.5 H (3.8-10.6) k/uL Neutrophils # 19.6 H (1.3-7.7) k/uL Lymphocytes # 0.3 L (1.0-4.8) k/uL D-Dimer (<0.60) mg/L FEU ABG pH 7.21 L (7.35-7.45) ABG pCO2 81 H* (35-45) mmHg ABG HCO3 32 H (21-25) mmol/L ABG Total CO2 35 H (19-24) mmol/L ABG O2 Saturation 93.0 L (94-97) % Sodium 136 L (137-145) mmol/L Potassium 6.6 H* (3.5-5.1) mmol/L BUN 29 H (9-20) mg/dL Glucose 142 H (74-99) mg/dL POC Glucose (mg/dL) (75-99) mg/dL Calcium 8.2 L (8.4-10.2) mg/dL Lactate Dehydrogenase 1548 H (313-618) U/L Creatine Kinase 28 L (55-170) U/L C-Reactive Protein 15.6 H (<1.0) mg/dL Microbiology - Last 24 Hours (Table) 05/02/21 10:50 Blood Culture - Preliminary Blood No Growth after 120 hours 05/02/21 10:35 Blood Culture - Preliminary Blood No Growth after 120 hours Assessment and Plan Assessment: 1. COVID-19 pneumonia with diffuse groundglass infiltrate bilaterally in un- vaccinated patient 2. Acute hypoxic respiratory failure, worsening since admission with dyspnea and increased work of breathing requiring intubation and mechanical ventilation on 05/07 3. Elevated d-dimer with no evidence of PE on CT angiogram 4. Hypertensive nephropathy with stage IIIB chronic kidney disease 5. Hypomagnesemia, replaced 6. History of mild intermittent asthma 7. Former smoker 8. Hyperkalemia, treated medically awaiting repeat potassium level. Lisinopril was discontinued Today, I reviewed his medication list and lab work results. Steroid day #7 managed by pulmonary currently on IV Solu-Medrol. Vitamin C, vitamin D, and zinc supplements. Repeat chest x-ray diffuse interstitial infiltrate. Overall prognosis is guarded. Discontinue lisinopril secondary to hyperkalemia and start Norvasc 5 mg daily starting tomorrow Patient was started on Olumiant by pulmonary GI prophylaxis with IV Protonix DVT prophylaxis with Lovenox managed by pulmonary
[2021-05-08 12:15] LABS: Glucose,Whole Blood 115 mg/dL (75-99)
--- NOTE | 2021-05-08 13:28 | XR ---
EXAMINATION TYPE: XR chest 1V portable DATE OF EXAM: 05/08/2021 CLINICAL HISTORY: OG tube placement. TECHNIQUE: Single AP portable upright view of the chest is obtained. COMPARISON: Chest x-ray from earlier today FINDINGS: Stable endotracheal tube and right internal jugular central venous catheters. The orogastr ic tube has been advanced but still terminates proximal to diaphragmatic hiatus. Persistent bilateral reticular increased opacities remain present greatest in the left lung base. C ardiac silhouette size is stable and upper limits of normal. Osseous structures are intact. IMPRESSION: 1. Interval advancement of orogastric tube to distal esophageal level , advise continued advancement of 10-11 cm. 2. Persistent Bilateral faint multifocal reticular opacities with more dense left basilar consolidati on consistent with covid-19 infection redemonstrated, no significant change from earlier today.
--- NOTE | 2021-05-08 13:29 | P.PN ---
Subjective Progress Note Date: 05/08/21 Principal diagnosis: Acute hypoxic respiratory failure and acute COVID-19 pneumonia This is a 40-year-old the white male patient of Dr. Pope, with history of hypertension, history of mild intermittent bronchial asthma, former smoker, who presented to the emergency department on 05/02/2021 for evaluation of progressive dyspnea. Patient stated that she was diagnosed with COVID-19 approximately 2 weeks ago, and reports symptoms of fever, chills, shortness of breath which is significantly worse today, to the point where the patient was unable to ambulate. He does report cough with some brown phlegm production. His chest x-ray on admission showed cardiac megaly with multifocal and confluent bilateral opacities and could reflect infiltrates and/or edema. Blood work setven wed white blood cell count of 9.3, hemoglobin is 15.3, lymphocyte count was 1.0, d-dimer was 1.79, electrolytes were within normal limits, creatinine was 1.52, plasma lactic acid was 2.2, AST was 62, ALT was 23, alkaline phosphatase is 56, CK was 355, troponin was 0.027, proBNP was 187. he was severely hypoxic with a pulse ox of 67% in the emergency department on 6 L of supplemental oxygen, FiO2 was then increased to 15 L high flow and currently his pulse ox is 87-89%. CT angiogram of the chest was completed showing diffuse bilateral groundglass changes compatible with diffuse pneumonia or pneumonitis, no evidence of central pulmonary embolism, exam for secondary distal branches limited by suboptimal enhancement. Patient is outside the window for Remdesivir, patient was started on IV Decadron 6 mg daily, prophylactic dose Lovenox, she was given IV fluids a total of 1 L, and normal saline is infusing and rate of 75 ML per hour. Blood cultures have been sent and pending. he has been afebrile since admission. The patient is seen today 05/03/2021 in follow-up on the regular medical floor. He is currently sitting up at the bedside. Awake and alert. He is in mild respiratory distress. He is requiring 15 L high flow nasal cannula plus a nonrebreather mask to maintain O2 saturation in the 90s. He's been afebrile. Hemodynamically stable. Blood cultures reveal no growth. White count 8.8. Hemoglobin 13.6. Platelets 254. Lymphocyte 0.86. D-dimer 3.73. Sodium 138. Potassium 4.7 and creatinine 1.5. LDH 84. C-reactive protein 12.1. He remains on Bariticinib, Decadron, Lovenox, Singulair, vitamin supplements. He was outside the window for Remdesivir. On today's evaluation on 05/04/2021 patient seen in follow-up on medical surgical floor, he is requiring 15 L high flow nasal cannula in addition to 100% nonrebreather, and his pulse ox is 95% at complete rest, however he easily desaturates with any activity, he is very short of breath, and she states is difficult for him to talk. He did remove his nonrebreather mask and did desaturate quite rapidly to 71%, he has been started On Baricitinib, still on Decadron. He is on prophylactic dose of Lovenox, today's labs have been reviewed his DO NOT RESUSCITATE today is 3.73, his electrolytes and renal profile were within normal limits, LDH is 884, CRP is 12.1. Hepatitis poor, but patient is able to take in some oral intake. Patient's is on and he wants to know what else he can do to improve his oxygenation On today's evaluation on 05/05/2021 patient seen in follow-up in intensive care unit. He is currently on Airvo at 55 L and FiO2 of 90%, and his pulse ox is ranging between 82-93%, overall he states his breathing a bit easier, he seems a bit more relaxed and calm her today. Nursing reports that the intermittent doses of Xanax did help his anxiety and breathlessness. His last fever was yesterday in the morning with a temp of 100.3F, blood pressure has been stable, he continues on 0.9 normal saline at rate 75 ML per hour, he has been started on Baricitinib on all 05/02/2021, and the patient was refusing the dose of 4 mg regarding the concern of his chronic kidney disease. The dose was then dropped to 2 mg daily, which he has been taking. Today's labs have been reviewed, and his renal function has improved since admission, his creatinine is down to 1.10, BUN is 19, his GFR is greater than 90, his sodium is 136, the rest of the electrolytes were unremarkable, his CBC was within normal limits, lymphocyte count is up to 1.1 on today's labs. His LDH and CRP are pending for today, his LDH yesterday was 884, and CRP was 12.1, BNP was 187, his chest x-ray was reviewed today showing stable diffuse bilateral interstitial infiltrates. Patient is also on Decadron 6 mg daily, he is on Lovenox 40 mg daily, he is on vitamins, he last night he was given a dose of melatonin and the nurses felt that it did help him sleep. no acute events overnight. Patient to be doing better with higher flow of oxygen. Reevaluated today on 05/06/2021, patient remains in the ICU, his pulmonary status is very marginal at best. Patient remains on airvo at 55 L flow and 90% FiO2. He is also on the percent nonrebreather mask, and O2 saturation is in the low 90s. Patient is not eating much. He seems to be a bit in distress, hence I recommended switching the patient to BiPAP. Patient will be placed on BiPAP 14/6, and on the percent FiO2. And I have recommended increasing his Solu- Medrol to 40 mg IV push every 6 hours and discontinue Decadron. Chest x-ray showed very minimal change if any, continues to have bilateral diffuse interstitial infiltrates. D-dimer today is down to 5.18 electrolytes are normal his LDH is slightly higher 2479 and CRP is a bit high as 20.2. Blood cultures are negative. Patient remains on the COVID-19 cocktail as well as Barictinib. Lasix was ordered again today 40 mg IV push. Patient is again marginal at best, and he is very well aware that if his condition gets worse, may have to require intubation and mechanical ventilation. Patient was reevaluated today on 05/07/2021, patient had significant deterioration of his pulmonary status over the last 24 hours. Patient was on BiPAP through the night, he required the Precedex, and he required morphine last night, his pulmonary status remains marginal, and his O2 saturation was in the 80s at best. I saw this patient this morning, he was extremely tachypneic, he had shallow breathing, and he was basically tiring out. He was using his accessory muscles, and I had a discussion with the patient about his condition, and explained time that he is definitely having pelvis intubation and mechanical ventilation. Patient agreed to be intubated. At his pulmonary status seems to be getting much worse. Patient was intubated by WEED ERADICATOR. Placed on mechanical ventilation. His ventilator settings initially with assist control rate of 30 and volume 400 FiO2 on the percent and PEEP of 12. ABG repeated within an hour showed a pO2 of 123 pCO2 of 70 pH of 7.2. Hence his rate was increased to 36 and FiO2 cut down to 80%. The PEEP at 12. Patient had to be placed on Nimbex and he was extremely agitated and unable to tolerate the endotracheal tube. And he was poorly ventilated because of gagging on the endotracheal tube. Patient was placed on propofol, fentanyl, and Nimbex. We'll repeat ABG in the next few hours. Clearly the patient failed noninvasive form of positive pressure ventilation, and he required intubation and mechanical ventilation. After intubating the patient, patient had a central line placed and arterial line placed. And we will continue with the COVID-19 cocktail. Continue the same treatment. ABC today showed evidence of 17.9 hemoglobin of 15 d-dimer is down to 3.87. Creatinine 1.18. LDH is down to 1959 and C-reactive protein is about the same 20.2. Reevaluated today on 05/08/2021, patient was intubated yesterday, remains intubated and mechanically ventilated. He is on assist control rate of 36, tidal volume of 430 FiO2 65%, and PEEP was increased from 12-16 today. Higher PEEP did not improve the patient, and affect and a PEEP of 18 patient was noted to have desaturations, and significant rise in his peak airway pressure and in his plateau pressures. Patient remains on propofol at 70 fentanyl at 1 Nimbex at 1.5. His ABG showed a pO2 of 85 pCO2 of 81 pH of 7.21, and his potassium was as high as 6.6. Patient received sodium bicarb, I have adjusted his tidal volume from 400-430 because of the hypercapnia. And I have also added bicarb to keep his bicarb slightly elevated and maintain a relatively low potassium. Patient did receive the cocktail treatment for his hyperkalemia. Including dextrose, insulin, bicarbonate, calcium gluconate, and Kayexalate. Tube feeding will be started today. And nose on the chest x-ray that his infiltrates r emained the same, his endotracheal tube was a bit high in the trachea and this was advanced down by 2 cm. WBC count today is 20.5 hemoglobin is 15.5. D-dimer is 3.13. Potassium follow-up was 5.2. BUN is 29 creatinine 1.17. LDH is 1548. C-reactive protein is 15.6. Objective - Vital Signs Vital signs: Vital Signs Temp 101.8 F H 05/08/21 12:00 Pulse 103 H 05/08/21 12:00 Resp 36 H 05/08/21 12:00 BP 125/63 05/07/21 11:00 Pulse Ox 88 L 05/08/21 12:00 Intake & Output 05/07/21 05/08/21 05/08/21 18:59 06:59 18:59 Intake Total 434.905 9847.709 563.392 Output Total 2125 1950 1110 Balance -1482.254 -710.291 -546.608 Weight 100.4 kg 100.4 kg Intake: IV 381 559 115 ART line 21 39 15 Sodium Chloride 0.9% 1, 360 520 100 000 ml @ 20 mls/hr IV . Q24H [facility] Rx#:[id number] Intake, IV Titration 261.746 680.709 448.392 Amount Cisatracurium 200 mg In 48.679 87.564 Sodium Chloride 0.9% 180 ml @ 1 MCG/KG/MIN 6.123 mls/hr IV .Q24H [facility] Rx#: [id number] Dexmedetomidine/0.9% NaCl 7.948 (Pmx) 400 mcg In Empty Bag 1 bag @ Titrate IV . Q0M [facility] Rx#:[id number] Dextrose 5% in Water 1, 250 000 ml @ 50 mls/hr IV . Q23H [facility] with Sodium Bicarb (1 Meq/ml) 150 ml Rx#:[id number] fentaNYL (PF). 1,000 mcg 19.391 127.405 In Sodium Chloride 0.9% 80 ml @ Per Protocol IV . Q0M [facility] Rx#:[id number] propofoL 1,000 mg In 185.728 465.74 198.392 Empty Bag 1 bag @ Titrate IV .Q0M [facility] Rx#: [id number] Output: Urine 2125 1950 1110 Other: Voiding Method Indwelling Catheter Indwelling Catheter Indwelling Catheter # Voids 0 ABP, PAP, CO, CI - Last Documented Arterial Blood Pressure 141/72 - Exam GENERAL EXAM: Alert, 40-year-old white male, intubated, mechanically ventilated, sedated, and paralysis. Head: Atraumatic, normocephalic. EENT: PERRLA, EOMI, anicteric, no neck masses, no JVD, no stridor. CHEST: No chest wall deformity. Symmetrical expansion. LUNGS: Crackles at the bases, no rhonchi no wheezes. CVS: Regular rate and rhythm, normal S1 and S2, no gallops, no murmurs, no rubs ABDOMEN: Soft, nontender. No hepatosplenomegaly, normal bowel sounds, no guarding or rigidity. EXTREMITIES: No clubbing, no edema, no cyanosis, 2+ pulses and upper and lower extremities. MUSCULOSKELETAL: No deformities, patient is paralyzed. SKIN: No rashes CENTRAL NERVOUS SYSTEM: Could not assess, patient is sedated and paralyzed. PSYCHIATRIC: Not assessed, sedated and paralyzed.. - Labs CBC & Chem 7: 05/08/21 03:45 05/08/21 12:10 Labs: Abnormal Lab Results - Last 24 Hours (Table) 05/07/21 05/08/21 05/08/21 Range/Units 17:46 03:45 03:45 WBC (3.8-10.6) k/uL Neutrophils # (1.3-7.7) k/uL Lymphocytes # (1.0-4.8) k/uL D-Dimer 3.13 H (<0.60) mg/L FEU ABG pH (7.35-7.45) ABG pCO2 (35-45) mmHg ABG HCO3 (21-25) mmol/L ABG Total CO2 (19-24) mmol/L ABG O2 Saturation (94-97) % Sodium 136 L (137-145) mmol/L Potassium 6.6 H* (3.5-5.1) mmol/L BUN 29 H (9-20) mg/dL Glucose 142 H (74-99) mg/dL POC Glucose (mg/dL) 146 H (75-99) mg/dL Calcium 8.2 L (8.4-10.2) mg/dL Lactate Dehydrogenase 1548 H (313-618) U/L Creatine Kinase 28 L (55-170) U/L C-Reactive Protein 15.6 H (<1.0) mg/dL 05/08/21 05/08/21 05/08/21 Range/Units 03:45 05:39 12:10 WBC 20.5 H (3.8-10.6) k/uL Neutrophils # 19.6 H (1.3-7.7) k/uL Lymphocytes # 0.3 L (1.0-4.8) k/uL D-Dimer (<0.60) mg/L FEU ABG pH 7.21 L (7.35-7.45) ABG pCO2 81 H* (35-45) mmHg ABG HCO3 32 H (21-25) mmol/L ABG Total CO2 35 H (19-24) mmol/L ABG O2 Saturation 93.0 L (94-97) % Sodium (137-145) mmol/L Potassium 5.2 H (3.5-5.1) mmol/L BUN (9-20) mg/dL Glucose (74-99) mg/dL POC Glucose (mg/dL) (75-99) mg/dL Calcium (8.4-10.2) mg/dL Lactate Dehydrogenase (313-618) U/L Creatine Kinase (55-170) U/L C-Reactive Protein (<1.0) mg/dL 05/08/21 Range/Units 12:13 WBC (3.8-10.6) k/uL Neutrophils # (1.3-7.7) k/uL Lymphocytes # (1.0-4.8) k/uL D-Dimer (<0.60) mg/L FEU ABG pH (7.35-7.45) ABG pCO2 (35-45) mmHg ABG HCO3 (21-25) mmol/L ABG Total CO2 (19-24) mmol/L ABG O2 Saturation (94-97) % Sodium (137-145) mmol/L Potassium (3.5-5.1) mmol/L BUN (9-20) mg/dL Glucose (74-99) mg/dL POC Glucose (mg/dL) 115 H (75-99) mg/dL Calcium (8.4-10.2) mg/dL Lactate Dehydrogenase (313-618) U/L Creatine Kinase (55-170) U/L C-Reactive Protein (<1.0) mg/dL Microbiology - Last 24 Hours (Table) 05/02/21 10:50 Blood Culture - Final Blood No Growth after 144 hours 05/02/21 10:35 Blood Culture - Final Blood No Growth after 144 hours Assessment and Plan Assessment: Pression: Acute hypoxic respiratory failure secondary to COVID-19 pneumonia , failed possibly pressure ventilation, required intubation and mechanical ventilation today on 05/07/2021. ARDS secondary to COVID-19 pneumonia. Acute kidney injury, secondary to COVID-19 pneumonia. History of mild intermittent asthma. Benign essential hypertension. Former smoker. Elevated inflammatory markers seconded to COVID-19 pneumonia. Hyperkalemia secondary to acute respiratory acidosis, corrected nicely from 6.6- 5.2. Recommendation: Bicarb drip to maintain a pH of at least 7.28. Continue ventilatory support. Continue GI and DVT prophylaxis. Initiate nutritional support. Continue high FiO2, continue CPAP, continue lower volume at 430 for now, higher PEEP did not seem to help. Continue Lovenox, Sedation using propofol, fentanyl, and Nimbex Daily monitoring of chest x-ray, ABG, and multiple labs. Including inflammatory markers. Continue droplet precautions and isolation. Prognosis seems to be poor. Critical care time is over 30 minutes , not including the time placed on procedures Time with Patient: Greater than 30
[2021-05-08] MEDS: SODIUM CHLORIDE 0.9% 1,000 ML IV SCH (15:01)
[2021-05-08] MEDS: ALBUTEROL HFA INHALER INHALATION PRN ×2 (15:06→19:45)
[2021-05-08 17:32] LABS: Glucose,Whole Blood 148 mg/dL (75-99)
[2021-05-08] MEDS: MONTELUKAST 10 MG TAB PO SCH (19:57)
[2021-05-08] MEDS: ACETAMINOPHEN TAB 500 MG TAB PO PRN (19:57)
[2021-05-08] MEDS: MELATONIN 5 MG TABLET PO SCH (19:57)
[2021-05-08] MEDS: BARICITINIB 2 MG TABLET PO SCH (19:59)
[2021-05-09] MEDS: fentaNYL (PF). 1,000 MCG in SODIUM CHLORIDE 0.9% 80 ML IV SCH ×2 (03:21→12:37)
[2021-05-09] MEDS: DEXTROSE 5% IN WATER 1,000 ML with SODIUM BICARB (1 MEQ/ML) 150 ML IV SCH (03:39)
[2021-05-09 04:04] LABS: Basophils % (A) 0 %; Eosinophils % (A) 0 %; HCT 48.7 % (39.0-53.0); HGB 15.4 gm/dL (13.0-17.5); Hypochromasia Slight; Lymphocytes # (A) 0.2 k/uL (1.0-4.8); Lymphocytes % (A) 1 %; MCH 27.3 pg (25.0-35.0); MCHC 31.6 g/dL (31.0-37.0); MCV 86.3 fL (80.0-100.0); Mean Platelet Volume 8.3; Monocytes # (A) 0.3 k/uL (0-1.0); Monocytes % (A) 1 %; Neutrophils # (A) 21.1 k/uL (1.3-7.7); Neutrophils % (A) 98 %; Platelet Count 338 k/uL (150-450); RBC 5.64 m/uL (4.30-5.90); WBC 21.6 k/uL (3.8-10.6)
[2021-05-09 04:32] LABS: African American GFR (CKD) >90 (>60 ml/min/1.73 sqM); Anion Gap 7 mmol/L; Blood Urea Nitrogen 32 mg/dL (9-20); Calcium 8.2 mg/dL (8.4-10.2); Carbon Dioxide 36 mmol/L (22-30); Chloride 96 mmol/L (98-107); Creatine Kinase 607 U/L (55-170); Glucose 173 mg/dL (74-99); LDH 1381 U/L (313-618); Magnesium 2.8 mg/dL (1.6-2.3); Non-African American GFR(CKD) 83 (>60 ml/min/1.73 sqM); Potassium 4.9 mmol/L (3.5-5.1); Sodium 139 mmol/L (137-145)
[2021-05-09 04:45] LABS: C Reactive Protein 19.1 mg/dL (<1.0)
[2021-05-09 05:21] LABS: ABG Base Excess 15.7 mmol/L; ABG Oxygen Saturation 94.8 % (94-97); ABG PH 7.36 (7.35-7.45); ABG PO2 97 mmHg (83-108); ABG TCO2 43 mmol/L (19-24); Allen Test Performed? Yes
[2021-05-09 05:22] LABS: ABG PCO2 72 mmHg (35-45)
[2021-05-09 05:23] LABS: ABG HCO3 41 mmol/L (21-25)
[2021-05-09] MEDS: ALBUTEROL HFA INHALER INHALATION PRN ×4 (07:24→19:07)
[2021-05-09] MEDS: ENOXAPARIN 60 MG/0.6 ML SYRINGE SQ SCH ×2 (07:41→21:00)
[2021-05-09] MEDS: BISOPROLOL-HCTZ 10-6.25 MG 1 EACH TAB PO SCH (07:41)
[2021-05-09] MEDS: PANTOPRAZOLE 40 MG/10 ML VIAL IVP SCH (07:41)
[2021-05-09] MEDS: methylPREDNISolone SOD SUCCI 40 MG/ML 1 ML VIAL IV SCH ×3 (07:41→23:00)
[2021-05-09] MEDS: CHLORHEXIDINE GLUCONATE 15 ML CUP MUCOUS MEM SCH ×2 (07:41→21:00)
[2021-05-09] MEDS: CHOLECALCIFEROL 25 MCG (1000 IU) TABLET PO SCH (07:42)
[2021-05-09] MEDS: amLODIPine 5 MG TAB PO SCH (07:42)
[2021-05-09] MEDS: ZINC SULFATE 220 MG CAP PO SCH (07:42)
[2021-05-09] MEDS: TAMSULOSIN 0.4 MG CAP.ER.24H PO SCH (07:42)
[2021-05-09] MEDS: ASCORBIC ACID 500 MG TAB PO SCH (07:42)
[2021-05-09] MEDS: MAGNESIUM OXIDE 400 MG TAB PO SCH (09:51)
--- NOTE | 2021-05-09 10:51 | XR ---
EXAMINATION TYPE: XR chest 1V portable DATE OF EXAM: 05/09/2021 COMPARISON: 05/08/2021 HISTORY: Tube placement TECHNIQUE: Single frontal view of the chest is obtained. FINDINGS: ET and NG tube stable. Interstitial pattern with a lower lobe infiltrates noted. No sizabl e pleural effusion. Heart size normal. IMPRESSION: Interstitial pneumonitis with basilar infiltrates correlate for pneumonia otherwise cons ider CHF.
--- NOTE | 2021-05-09 11:17 | P.PN ---
Subjective Progress Note Date: 05/09/21 Principal diagnosis: COVID-19 pneumonia This is a 40-year-old the white male patient of Dr. Pope, with history of hypertension, history of mild intermittent bronchial asthma, former smoker, who presented to the emergency department on 05/02/2021 for evaluation of progressive dyspnea. Patient stated that she was diagnosed with COVID-19 approximately 2 weeks ago, and reports symptoms of fever, chills, shortness of breath which is significantly worse today, to the point where the patient was unable to ambulate. He does report cough with some brown phlegm production. His chest x-ray on admission showed cardiac megaly with multifocal and confluent bilateral opacities and could reflect infiltrates and/or edema. Blood work showed white blood cell count of 9.3, hemoglobin is 15.3, lymphocyte count was 1.0, d-dimer was 1.79, electrolytes were within normal limits, creatinine was 1.52, plasma lactic acid was 2.2, AST was 62, ALT was 23, alkaline phosphatase is 56, CK was 355, troponin was 0.027, proBNP was 187. he was severely hypoxic with a pulse ox of 67% in the emergency department on 6 L of supplemental oxygen, FiO2 was then increased to 15 L high flow and currently his pulse ox is 87-89%. CT angiogram of the chest was completed showing diffuse bilateral arturo undglass changes compatible with diffuse pneumonia or pneumonitis, no evidence of central pulmonary embolism, exam for secondary distal branches limited by suboptimal enhancement. Patient is outside the window for Remdesivir, patient was started on IV Decadron 6 mg daily, prophylactic dose Lovenox, she was given IV fluids a total of 1 L, and normal saline is infusing and rate of 75 ML per hour. Blood cultures have been sent and pending. he has been afebrile since admission. The patient is seen today 05/03/2021 in follow-up on the regular medical floor. He is currently sitting up at the bedside. Awake and alert. He is in mild respiratory distress. He is requiring 15 L high flow nasal cannula plus a nonrebreather mask to maintain O2 saturation in the 90s. He's been afebrile. Hemodynamically stable. Blood cultures reveal no growth. White count 8.8. Hemoglobin 13.6. Platelets 254. Lymphocyte 0.86. D-dimer 3.73. Sodium 138. Potassium 4.7 and creatinine 1.5. LDH 84. C-reactive protein 12.1. He remains on Bariticinib, Decadron, Lovenox, Singulair, vitamin supplements. He was outside the window for Remdesivir. On today's evaluation on 05/04/2021 patient seen in follow-up on medical surgical floor, he is requiring 15 L high flow nasal cannula in addition to 100% nonrebreather, and his pulse ox is 95% at complete rest, however he easily desaturates with any activity, he is very short of breath, and she states is difficult for him to talk. He did remove his nonrebreather mask and did desaturate quite rapidly to 71%, he has been started On Baricitinib, still on Decadron. He is on prophylactic dose of Lovenox, today's labs have been reviewed his DO NOT RESUSCITATE today is 3.73, his electrolytes and renal profile were within normal limits, LDH is 884, CRP is 12.1. Hepatitis poor, but patient is able to take in some oral intake. Patient's is on and he wants to know what else he can do to improve his oxygenation On today's evaluation on 05/05/2021 patient seen in follow-up in intensive care unit. He is currently on Airvo at 55 L and FiO2 of 90%, and his pulse ox is ranging between 82-93%, overall he states his breathing a bit easier, he seems a bit more relaxed and calm her today. Nursing reports that the intermittent doses of Xanax did help his anxiety and breathlessness. His last fever was yesterday in the morning with a temp of 100.3F, blood pressure has been stable, he continues on 0.9 normal saline at rate 75 ML per hour, he has been started on Baricitinib on all 05/02/2021, and the patient was refusing the dose of 4 mg regarding the concern of his chronic kidney disease. The dose was then dropped to 2 mg daily, which he has been taking. Today's labs have been reviewed, and his renal function has improved since admission, his creatinine is down to 1.10, BUN is 19, his GFR is greater than 90, his sodium is 136, the rest of the electrolytes were unremarkable, his CBC was within normal limits, lymphocyte count is up to 1.1 on today's labs. His LDH and CRP are pending for today, his LDH yesterday was 884, and CRP was 12.1, BNP was 187, his chest x-ray was reviewed today showing stable diffuse bilateral interstitial infiltrates. Patient is also on Decadron 6 mg daily, he is on Lovenox 40 mg daily, he is on vitamins, he last night he was given a dose of melatonin and the nurses felt that it did help him sleep. no acute events overnight. Patient to be doing better with higher flow of oxygen. Reevaluated today on 05/06/2021, patient remains in the ICU, his pulmonary status is very marginal at best. Patient remains on airvo at 55 L flow and 90% FiO2. He is also on the percent nonrebreather mask, and O2 saturation is in the low 90s. Patient is not eating much. He seems to be a bit in distress, hence I recommended switching the patient to BiPAP. Patient will be placed on BiPAP 14/6, and on the percent FiO2. And I have recommended increasing his Solu- Medrol to 40 mg IV push every 6 hours and discontinue Decadron. Chest x-ray showed very minimal change if any, continues to have bilateral diffuse inter stitial infiltrates. D-dimer today is down to 5.18 electrolytes are normal his LDH is slightly higher 2479 and CRP is a bit high as 20.2. Blood cultures are negative. Patient remains on the COVID-19 cocktail as well as Barictinib. Lasix was ordered again today 40 mg IV push. Patient is again marginal at best, and he is very well aware that if his condition gets worse, may have to require intubation and mechanical ventilation. Patient was reevaluated today on 05/07/2021, patient had significant deterioration of his pulmonary status over the last 24 hours. Patient was on BiPAP through the night, he required the Precedex, and he required morphine last night, his pulmonary status remains marginal, and his O2 saturation was in the 80s at best. I saw this patient this morning, he was extremely tachypneic, he had shallow breathing, and he was basically tiring out. He was using his acces nina muscles, and I had a discussion with the patient about his condition, and explained time that he is definitely having pelvis intubation and mechanical ventilation. Patient agreed to be intubated. At his pulmonary status seems to be getting much worse. Patient was intubated by [facility]. Placed on mechanical ventilation. His ventilator settings initially with assist control rate of 30 and volume 400 FiO2 on the percent and PEEP of 12. ABG repeated within an hour showed a pO2 of 123 pCO2 of 70 pH of 7.2. Hence his rate was increased to 36 and FiO2 cut down to 80%. The PEEP at 12. Patient had to be placed on Nimbex and he was extremely agitated and unable to tolerate the endotracheal tube. And he was poorly ventilated because of gagging on the endotracheal tube. Patient was placed on propofol, fentanyl, and Nimbex. We'll repeat ABG in the next few hours. Clearly the patient failed noninvasive form of positive pressure ventilation, and he required intubation and mechanical ventilation. After intubating the patient, patient had a central line placed and arterial line placed. And we will continue with the COVID-19 cocktail. Continue the same treatment. ABC today showed evidence of 17.9 hemoglobin of 15 d-dimer is down to 3.87. Creatinine 1.18. LDH is down to 1959 and C-reactive protein is about the same 20.2. Reevaluated today on 05/08/2021, patient was intubated yesterday, remains intubated and mechanically ventilated. He is on assist control rate of 36, tidal volume of 430 FiO2 65%, and PEEP was increased from 12-16 today. Higher PEEP did not improve the patient, and affect and a PEEP of 18 patient was noted to have desaturations, and significant rise in his peak airway pressure and in his plateau pressures. Patient remains on propofol at 70 fentanyl at 1 Nimbex at 1.5. His ABG showed a pO2 of 85 pCO2 of 81 pH of 7.21, and his potassium was as high as 6.6. Patient received sodium bicarb, I have adjusted his tidal volume from 400-430 because of the hypercapnia. And I have also added bicarb to keep his bicarb slightly elevated and maintain a relatively low potassium. Patient did receive the cocktail treatment for his hyperkalemia. Including dextrose, insulin, bicarbonate, calcium gluconate, and Kayexalate. Tube feeding will be started today. And nose on the chest x-ray that his infiltrates remained the same, his endotracheal tube was a bit high in the trachea and this was advanced down by 2 cm. WBC count today is 20.5 hemoglobin is 15.5. D-dimer is 3.13. Potassium follow-up was 5.2. BUN is 29 creatinine 1.17. LDH is 1548. C-reactive protein is 15.6. The patient is seen today 05/09/2021 in follow-up in the intensive care unit. He remains intubated and on the mechanical ventilator. Current settings are assist-control mode. Respiratory rate of 36, tidal volume 430, FiO2 65% and a PEEP of 16. Peak pressures of 31, plateau pressures of 30. Morning blood gases reveal a P O2 of 97, pCO2 72, pH 7.36 on 65% FiO2. He remains sedated on propofol at 70 mcg/kg/m. Nimbex at 1.5 mcg/kg/m. Fentanyl at 1 mcg/kg/hr. D5W with 3 A of bicarb at 50 MLS per hour. He remains in sinus rhythm. He is tolerating 16 hours of protein. He is being nourished with vital HPI 22 ML's per hour which is goal. He is getting 30 mL of free water flushes every 4 hours. White count 21.6. Hemoglobin 15.4. Lymphocytes 0.2. D-dimer 2.19. Sodium 139. Potassium 4.9. Creatinine 1.11. LDH 1381. C-reactive protein 19.1. He remains on Baricitinib, Lovenox, IV Solu-Medrol. Continued on bronchodilators. Continued on vitamin supplements. Objective - Vital Signs Vital signs: Vital Signs Temp 99.4 F 05/09/21 08:00 Pulse 81 05/09/21 10:00 Resp 36 H 05/09/21 10:00 BP 125/63 05/07/21 11:00 Pulse Ox 92 L 05/09/21 10:00 Intake & Output 05/08/21 05/09/21 05/09/21 18:59 06:59 18:59 Intake Total 2269.289 3484.959 157.336 Output Total 1732 945 90 Balance -242.807 521.959 67.336 Weight 100.4 kg 99.4 kg Intake: IV 276 276 23 ART line 36 36 3 Sodium Chloride 0.9% 1, 240 240 20 000 ml @ 20 mls/hr IV . Q24H ON LICENSE OF [facility] Rx#:[id number] Intake, IV Titration 3556.487 4218.959 134.336 Amount Cisatracurium 200 mg In 145.123 Sodium Chloride 0.9% 180 ml @ 1 MCG/KG/MIN 6.123 mls/hr IV .Q24H [facility] Rx#: [id number] Dextrose 5% in Water 1, 600 600 50 000 ml @ 50 mls/hr IV . Q23H [facility] with Sodium Bicarb (1 Meq/ml) 150 ml Rx#:[id number] fentaNYL (PF). 1,000 mcg 100 100 In Sodium Chloride 0.9% 80 ml @ Per Protocol IV . Q0M [facility] Rx#:[id number] propofoL 1,000 mg In 368.070 490.959 84.336 Empty Bag 1 bag @ Titrate IV .Q0M ON LICENSE OF [facility] Rx#: [id number] Output: Urine 1732 945 90 Other: Voiding Method Indwelling Catheter Indwelling Catheter Indwelling Catheter ABP, PAP, CO, CI - Last Documented Arterial Blood Pressure 142/70 - Exam GENERAL EXAM: Intubated, sedated, paralyzed 40-year-old male, appears comfortable in no apparent distress. HEAD: Normocephalic/atraumatic. EYES: Sluggish reaction of pupils, equal size. Conjunctiva pink, sclera white. NOSE: Clear with pink turbinates. THROAT: Oral endotracheal and gastric tube secured in place. No erythema or exudates. NECK: No masses, no JVD, no thyroid enlargement, no adenopathy. CHEST: No chest wall deformity. Symmetrical expansion. LUNGS: Equal air entry with diffuse crackles bilaterally CVS: Regular rate and rhythm, normal S1 and S2, no gallops, no murmurs, no rubs ABDOMEN: Soft, nontender. No hepatosplenomegaly, normal bowel sounds, no guarding or rigidity. EXTREMITIES: No clubbing, trace edema, no cyanosis, 2+ pulses and upper and lower extremities. MUSCULOSKELETAL: Tone normal. SPINE: No scoliosis or deformity SKIN: No rashes CENTRAL NERVOUS SYSTEM: Sedated, paralyzed, intubated, tone is normal in all 4 extremities. PSYCHIATRIC: Unable to assess. - Labs CBC & Chem 7: 05/09/21 03:45 05/09/21 03:45 Labs: Abnormal Lab Results - Last 24 Hours (Table) 05/08/21 05/08/21 05/08/21 Range/Units 03:45 12:10 12:13 WBC (3.8-10.6) k/uL Neutrophils # (1.3-7.7) k/uL Lymphocytes # (1.0-4.8) k/uL D-Dimer (<0.60) mg/L FEU ABG pCO2 (35-45) mmHg ABG HCO3 (21-25) mmol/L ABG Total CO2 (19-24) mmol/L Potassium 5.2 H (3.5-5.1) mmol/L Chloride (98-107) mmol/L Carbon Dioxide (22-30) mmol/L BUN (9-20) mg/dL Glucose (74-99) mg/dL POC Glucose (mg/dL) 115 H (75-99) mg/dL Calcium (8.4-10.2) mg/dL Magnesium (1.6-2.3) mg/dL Ferritin 852.0 H (22.0-322.0) ng/mL Lactate Dehydrogenase (313-618) U/L Creatine Kinase (55-170) U/L C-Reactive Protein (<1.0) mg/dL 05/08/21 05/09/21 05/09/21 Range/Units 17:31 03:45 03:45 WBC (3.8-10.6) k/uL Neutrophils # (1.3-7.7) k/uL Lymphocytes # (1.0-4.8) k/uL D-Dimer 2.19 H (<0.60) mg/L FEU ABG pCO2 (35-45) mmHg ABG HCO3 (21-25) mmol/L ABG Total CO2 (19-24) mmol/L Potassium (3.5-5.1) mmol/L Chloride 96 L (98-107) mmol/L Carbon Dioxide 36 H (22-30) mmol/L BUN 32 H (9-20) mg/dL Glucose 173 H (74-99) mg/dL POC Glucose (mg/dL) 148 H (75-99) mg/dL Calcium 8.2 L (8.4-10.2) mg/dL Magnesium 2.8 H (1.6-2.3) mg/dL Ferritin (22.0-322.0) ng/mL Lactate Dehydrogenase 1381 H (313-618) U/L Creatine Kinase 607 H (55-170) U/L C-Reactive Protein 19.1 H (<1.0) mg/dL 05/09/21 05/09/21 05/09/21 Range/Units 03:45 03:45 05:18 WBC 21.6 H (3.8-10.6) k/uL Neutrophils # 21.1 H (1.3-7.7) k/uL Lymphocytes # 0.2 L (1.0-4.8) k/uL D-Dimer (<0.60) mg/L FEU ABG pCO2 72 H* (35-45) mmHg ABG HCO3 41 H* (21-25) mmol/L ABG Total CO2 43 H (19-24) mmol/L Potassium (3.5-5.1) mmol/L Chloride (98-107) mmol/L Carbon Dioxide (22-30) mmol/L BUN (9-20) mg/dL Glucose (74-99) mg/dL POC Glucose (mg/dL) (75-99) mg/dL Calcium (8.4-10.2) mg/dL Magnesium (1.6-2.3) mg/dL Ferritin (22.0-322.0) ng/mL Lactate Dehydrogenase (313-618) U/L Creatine Kinase 593 H (55-170) U/L C-Reactive Protein (<1.0) mg/dL Microbiology - Last 24 Hours (Table) 05/02/21 10:50 Blood Culture - Final Blood No Growth after 144 hours 05/02/21 10:35 Blood Culture - Final Blood No Growth after 144 hours Assessment and Plan Assessment: 1 Acute hypoxic respiratory failure related to acute COVID-19 pneumonia, diagnosed over 2 weeks ago, and was outside the window for Remdesivir. Initiated Bariticinib for evidence of severe hypoxic respiratory failure. Required intubation mechanical ventilatory support on 05/07/2021 2 History of mild intermittent bronchial asthma 3 Acute kidney injury 4 Hypertension 5 Former smoker 6 Mild lactic acidosis 7 Elevated d-dimer without CT evidence of pulmonary embolism Plan: The patient was seen and evaluated by Dr. Musa Chest x-ray, ABGs and labs reviewed Decrease FiO2 to 60% Continue pronating the patient 16-18 hours a day Titrate the FiO2 as tolerated Continue Bariticinib, Lovenox, Solu medrol and vitamin supplements. Repeat chest x-ray and labs in a.m. We will continue to follow and make further recommendations based on his clinical status Critical care time 36 minutes I, the cosigning physician, performed a history & physical examination of the katerina cárdenas. Lungs sounds crackles in the bilateral posterior bases. Maintaining O2 saturations in the 90s on 60% FiO2 via the mechanical ventilator. I discussed the assessment and plan of care with my nurse practitioner, Malena Lopez. I attest to the above note as dictated by her. Time with Patient: Greater than 30
[2021-05-09 11:27] LABS: Ferritin 419.1 ng/mL (22.0-322.0)
[2021-05-09 11:48] LABS: Glucose,Whole Blood 155 mg/dL (75-99)
[2021-05-09] MEDS: CISATRACURIUM 200 MG in SODIUM CHLORIDE 0.9% 180 ML IV SCH (12:37)
[2021-05-09] MEDS: SODIUM CHLORIDE 0.9% 1,000 ML IV SCH (14:51)
[2021-05-09 18:03] LABS: Glucose,Whole Blood 147 mg/dL (75-99)
--- NOTE | 2021-05-09 18:17 | P.PN ---
Subjective Progress Note Date: 05/09/21 (seen at 1240) Principal diagnosis: shortness of breath Patient is a 40-year-old male past medical history of asthma, hypertension, and prior tobacco abuse who presented to the hospital with worsening shortness of breath and dyspnea. He had been diagnosed with COVID-19 2 weeks prior and been getting progressively more short of breath. In the ER he was found to be hy poxic, imaging demonstrated diffuse groundglass opacities, and the patient was started on steroids. He was admitted for further monitoring. He was evaluated by pulmonary. CT of the chest was completed which showed diffuse groundglass opacities consistent with pneumonia/pneumonitis with no evidence of pulmonary embolism. He was determined to be outside the window for Remdesivir. His respiratory status continued to worsen he was requiring 15L nasal cannula with nonrebreather on top. He was started on a Bariticinibin addition to his Decadron. By the morning of 05/05 he was requiring AirVo. He required BiPAP overnight on 05/07. His breathing continued to worsen and he was ultimately intubated on 05/07. Patient seen and examined at bedside. sedated and paralyzed on vent General: non toxic, no distress, appears at stated age Derm: warm, dry Head: atraumatic, normocephalic, symmetric Eyes: no lid lesion, anicteric sclera Mouth: no lip lesion, mucus membranes moist Cardiovascular: S1S2 reg, no murmur, positive posterior tibial pulse bilateral, Lungs: Course bs bilateral, chest rise equal, no vent Abdominal: soft, nontender to palpation, no guarding, no appreciable organomegaly Ext: no gross muscle atrophy, no edema, no contractures Neuro:on nimbex Psych: sedated on vent COVID-19 pneumonia Acute hypoxic respiratory failure ARDS due to COVID -Steroid day #7 currently on IV Solu-Medrol -Vitamin C, vitamin D, and zinc -Bariticnib - pulm recs - on nimbex and sedation - follow inflammatory markters MINH, hyperkalmeia - on sodium bicarb infusion - avoid nephrotoxic agents - follow Cr Hypertension - controlled - norvasc - bisoprolol 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 Objective - Vital Signs Vital signs: Vital Signs Temp 99.4 F 05/09/21 08:00 Pulse 87 05/09/21 08:00 Resp 36 H 05/09/21 08:00 BP 125/63 05/07/21 11:00 Pulse Ox 92 L 05/09/21 08:00 Intake & Output 05/08/21 05/09/21 05/09/21 18:59 06:59 18:59 Intake Total 8040.079 3875.959 157.336 Output Total 1732 945 90 Balance -242.807 521.959 67.336 Weight 100.4 kg 99.4 kg Intake: IV 276 276 23 ART line 36 36 3 Sodium Chloride 0.9% 1, 240 240 20 000 ml @ 20 mls/hr IV . Q24H [facility] Rx#:[id number] Intake, IV Titration 3159.815 3185.959 134.336 Amount Cisatracurium 200 mg In 145.123 Sodium Chloride 0.9% 180 ml @ 1 MCG/KG/MIN 6.123 mls/hr IV .Q24H [facility] Rx#: [id number] Dextrose 5% in Water 1, 600 600 50 000 ml @ 50 mls/hr IV . Q23H [facility] with Sodium Bicarb (1 Meq/ml) 150 ml Rx#:[id number] fentaNYL (PF). 1,000 mcg 100 100 In Sodium Chloride 0.9% 80 ml @ Per Protocol IV . Q0M [facility] Rx#:[id number] propofoL 1,000 mg In 368.070 490.959 84.336 Empty Bag 1 bag @ Titrate IV .Q0M [facility] Rx#: [id number] Output: Urine 1732 945 90 Other: Voiding Method Indwelling Catheter Indwelling Catheter Indwelling Catheter ABP, PAP, CO, CI - Last Documented Arterial Blood Pressure 130/68 - Labs CBC & Chem 7: 05/09/21 03:45 05/09/21 03:45 Labs: Abnormal Lab Results - Last 24 Hours (Table) 05/08/21 05/08/21 05/08/21 Range/Units 03:45 12:10 12:13 WBC (3.8-10.6) k/uL Neutrophils # (1.3-7.7) k/uL Lymphocytes # (1.0-4.8) k/uL D-Dimer (<0.60) mg/L FEU ABG pCO2 (35-45) mmHg ABG HCO3 (21-25) mmol/L ABG Total CO2 (19-24) mmol/L Potassium 5.2 H (3.5-5.1) mmol/L Chloride (98-107) mmol/L Carbon Dioxide (22-30) mmol/L BUN (9-20) mg/dL Glucose (74-99) mg/dL POC Glucose (mg/dL) 115 H (75-99) mg/dL Calcium (8.4-10.2) mg/dL Magnesium (1.6-2.3) mg/dL Ferritin 852.0 H (22.0-322.0) ng/mL Lactate Dehydrogenase (313-618) U/L Creatine Kinase (55-170) U/L C-Reactive Protein (<1.0) mg/dL 05/08/21 05/09/21 05/09/21 Range/Units 17:31 03:45 03:45 WBC (3.8-10.6) k/uL Neutrophils # (1.3-7.7) k/uL Lymphocytes # (1.0-4.8) k/uL D-Dimer 2.19 H (<0.60) mg/L FEU ABG pCO2 (35-45) mmHg ABG HCO3 (21-25) mmol/L ABG Total CO2 (19-24) mmol/L Potassium (3.5-5.1) mmol/L Chloride 96 L (98-107) mmol/L Carbon Dioxide 36 H (22-30) mmol/L BUN 32 H (9-20) mg/dL Glucose 173 H (74-99) mg/dL POC Glucose (mg/dL) 148 H (75-99) mg/dL Calcium 8.2 L (8.4-10.2) mg/dL Magnesium 2.8 H (1.6-2.3) mg/dL Ferritin (22.0-322.0) ng/mL Lactate Dehydrogenase 1381 H (313-618) U/L Creatine Kinase 607 H (55-170) U/L C-Reactive Protein 19.1 H (<1.0) mg/dL 05/09/21 05/09/21 05/09/21 Range/Units 03:45 03:45 05:18 WBC 21.6 H (3.8-10.6) k/uL Neutrophils # 21.1 H (1.3-7.7) k/uL Lymphocytes # 0.2 L (1.0-4.8) k/uL D-Dimer (<0.60) mg/L FEU ABG pCO2 72 H* (35-45) mmHg ABG HCO3 41 H* (21-25) mmol/L ABG Total CO2 43 H (19-24) mmol/L Potassium (3.5-5.1) mmol/L Chloride (98-107) mmol/L Carbon Dioxide (22-30) mmol/L BUN (9-20) mg/dL Glucose (74-99) mg/dL POC Glucose (mg/dL) (75-99) mg/dL Calcium (8.4-10.2) mg/dL Magnesium (1.6-2.3) mg/dL Ferritin (22.0-322.0) ng/mL Lactate Dehydrogenase (313-618) U/L Creatine Kinase 593 H (55-170) U/L C-Reactive Protein (<1.0) mg/dL Microbiology - Last 24 Hours (Table) 05/02/21 10:50 Blood Culture - Final Blood No Growth after 144 hours 05/02/21 10:35 Blood Culture - Final Blood No Growth after 144 hours
[2021-05-09] MEDS: INSULIN ASPART (NovoLOG) 100 UNIT/ML VIAL SQ SCH ×2 (18:18→23:02)
[2021-05-09] MEDS: MELATONIN 5 MG TABLET PO SCH (20:18)
[2021-05-09] MEDS: BARICITINIB 2 MG TABLET PO SCH (21:00)
[2021-05-09] MEDS: MONTELUKAST 10 MG TAB PO SCH (21:00)
[2021-05-10 01:28] LABS: Glucose,Whole Blood 145 mg/dL (75-99)
[2021-05-10] MEDS: DEXTROSE 5% IN WATER 1,000 ML with SODIUM BICARB (1 MEQ/ML) 150 ML IV SCH (03:19)
[2021-05-10] MEDS: fentaNYL (PF). 1,000 MCG in SODIUM CHLORIDE 0.9% 80 ML IV SCH ×2 (03:22→12:28)
[2021-05-10 04:50] LABS: Basophils % (A) 0 %; Eosinophils % (A) 0 %; HCT 45.9 % (39.0-53.0); HGB 14.4 gm/dL (13.0-17.5); Hypochromasia Slight; Lymphocytes # (A) 0.3 k/uL (1.0-4.8); Lymphocytes % (A) 2 %; MCH 27.2 pg (25.0-35.0); MCHC 31.4 g/dL (31.0-37.0); MCV 86.4 fL (80.0-100.0); Mean Platelet Volume 8.4; Monocytes # (A) 0.2 k/uL (0-1.0); Monocytes % (A) 2 %; Neutrophils % (A) 95 %; Platelet Count 383 k/uL (150-450); RBC 5.31 m/uL (4.30-5.90); RDW 13.9 % (11.5-15.5); WBC 12.6 k/uL (3.8-10.6)
[2021-05-10 05:21] LABS: ALT 18 U/L (4-49); AST 46 U/L (17-59); African American GFR (CKD) >90 (>60 ml/min/1.73 sqM); Albumin 2.6 g/dL (3.5-5.0); Alkaline Phosphatase 64 U/L (38-126); Blood Urea Nitrogen 36 mg/dL (9-20); Calcium 8.2 mg/dL (8.4-10.2); Chloride 96 mmol/L (98-107); Glucose 151 mg/dL (74-99); Non-African American GFR(CKD) 84 (>60 ml/min/1.73 sqM); Potassium 4.9 mmol/L (3.5-5.1); Sodium 142 mmol/L (137-145); Total Bilirubin 0.5 mg/dL (0.2-1.3); Total Protein 5.8 g/dL (6.3-8.2)
[2021-05-10 05:27] LABS: Anion Gap 8 mmol/L; Carbon Dioxide 38 mmol/L (22-30)
[2021-05-10 05:36] LABS: ABG Base Excess 20.4 mmol/L; ABG Oxygen Saturation 92.4 % (94-97); ABG PCO2 60 mmHg (35-45); ABG PH 7.48 (7.35-7.45); ABG PO2 71 mmHg (83-108); ABG TCO2 46 mmol/L (19-24); Allen Test Performed? Yes
[2021-05-10 05:39] LABS: ABG HCO3 44 mmol/L (21-25)
[2021-05-10 06:18] LABS: Glucose,Whole Blood 139 mg/dL (75-99)
[2021-05-10] MEDS: INSULIN ASPART (NovoLOG) 100 UNIT/ML VIAL SQ SCH ×3 (06:25→18:39)
[2021-05-10 07:03] VITALS: RESP 36
[2021-05-10] MEDS: CISATRACURIUM 200 MG in SODIUM CHLORIDE 0.9% 180 ML IV SCH ×2 (08:16→23:09)
[2021-05-10] MEDS: TAMSULOSIN 0.4 MG CAP.ER.24H PO SCH (08:35)
[2021-05-10] MEDS: ZINC SULFATE 220 MG CAP PO SCH (08:35)
[2021-05-10] MEDS: ASCORBIC ACID 500 MG TAB PO SCH (08:35)
[2021-05-10] MEDS: amLODIPine 5 MG TAB PO SCH (08:35)
[2021-05-10] MEDS: CHOLECALCIFEROL 25 MCG (1000 IU) TABLET PO SCH (08:35)
[2021-05-10] MEDS: methylPREDNISolone SOD SUCCI 40 MG/ML 1 ML VIAL IV SCH ×3 (08:35→23:50)
[2021-05-10] MEDS: PANTOPRAZOLE 40 MG/10 ML VIAL IVP SCH (08:35)
[2021-05-10] MEDS: BISOPROLOL-HCTZ 10-6.25 MG 1 EACH TAB PO SCH (08:36)
[2021-05-10] MEDS: CHLORHEXIDINE GLUCONATE 15 ML CUP MUCOUS MEM SCH ×2 (08:36→19:39)
[2021-05-10] MEDS: ACETAMINOPHEN IV (For NPO) 1,000 MG in EMPTY BAG 1 BAG IVPB PRN ×2 (08:36→18:39)
[2021-05-10] MEDS: ENOXAPARIN 60 MG/0.6 ML SYRINGE SQ SCH (08:36)
[2021-05-10] MEDS: ALBUTEROL HFA INHALER INHALATION PRN ×3 (08:53→20:47)
--- NOTE | 2021-05-10 10:06 | XR ---
EXAMINATION TYPE: XR chest 1V portable DATE OF EXAM: 05/10/2021 COMPARISON: 05/09/2021 HISTORY: Tube placement TECHNIQUE: Single frontal view of the chest is obtained. FINDINGS: ET tube, NG tube and central line noted. NG tube is been pulled back distal esophagus. Christiano ateral infiltrate and small effusion right noted. Underlying COPD suspected. Heart size stable. IMPRESSION: 1. Bilateral areas of infiltrate correlate for interstitial pneumonitis or pneumonia. Otherwise consi esequiel CHF. 2. NG tube is been pulled back into the distal esophagus correlate clinically for advancement.
--- NOTE | 2021-05-10 10:28 | P.PN ---
Subjective Progress Note Date: 05/10/21 Principal diagnosis: Acute hypoxic respiratory failure and acute COVID-19 pneumonia This is a 40-year-old the white male patient of Dr. Pope, with history of hypertension, history of mild intermittent bronchial asthma, former smoker, who presented to the emergency department on 05/02/2021 for evaluation of progressive dyspnea. Patient stated that she was diagnosed with COVID-19 approximately 2 weeks ago, and reports symptoms of fever, chills, shortness of breath which is significantly worse today, to the point where the patient was unable to ambulate. He does report cough with some brown phlegm production. His chest x-ray on admission showed cardiac megaly with multifocal and confluent bilateral opacities and could reflect infiltrates and/or edema. Blood work steven wed white blood cell count of 9.3, hemoglobin is 15.3, lymphocyte count was 1.0, d-dimer was 1.79, electrolytes were within normal limits, creatinine was 1.52, plasma lactic acid was 2.2, AST was 62, ALT was 23, alkaline phosphatase is 56, CK was 355, troponin was 0.027, proBNP was 187. he was severely hypoxic with a pulse ox of 67% in the emergency department on 6 L of supplemental oxygen, FiO2 was then increased to 15 L high flow and currently his pulse ox is 87-89%. CT angiogram of the chest was completed showing diffuse bilateral groundglass changes compatible with diffuse pneumonia or pneumonitis, no evidence of central pulmonary embolism, exam for secondary distal branches limited by suboptimal enhancement. Patient is outside the window for Remdesivir, patient was started on IV Decadron 6 mg daily, prophylactic dose Lovenox, she was given IV fluids a total of 1 L, and normal saline is infusing and rate of 75 ML per hour. Blood cultures have been sent and pending. he has been afebrile since admission. The patient is seen today 05/03/2021 in follow-up on the regular medical floor. He is currently sitting up at the bedside. Awake and alert. He is in mild respiratory distress. He is requiring 15 L high flow nasal cannula plus a nonrebreather mask to maintain O2 saturation in the 90s. He's been afebrile. Hemodynamically stable. Blood cultures reveal no growth. White count 8.8. Hemoglobin 13.6. Platelets 254. Lymphocyte 0.86. D-dimer 3.73. Sodium 138. Potassium 4.7 and creatinine 1.5. LDH 84. C-reactive protein 12.1. He remains on Bariticinib, Decadron, Lovenox, Singulair, vitamin supplements. He was outside the window for Remdesivir. On today's evaluation on 05/04/2021 patient seen in follow-up on medical surgical floor, he is requiring 15 L high flow nasal cannula in addition to 100% nonrebreather, and his pulse ox is 95% at complete rest, however he easily desaturates with any activity, he is very short of breath, and she states is difficult for him to talk. He did remove his nonrebreather mask and did desaturate quite rapidly to 71%, he has been started On Baricitinib, still on Decadron. He is on prophylactic dose of Lovenox, today's labs have been reviewed his DO NOT RESUSCITATE today is 3.73, his electrolytes and renal profile were within normal limits, LDH is 884, CRP is 12.1. Hepatitis poor, but patient is able to take in some oral intake. Patient's is on and he wants to know what else he can do to improve his oxygenation On today's evaluation on 05/05/2021 patient seen in follow-up in intensive care unit. He is currently on Airvo at 55 L and FiO2 of 90%, and his pulse ox is ranging between 82-93%, overall he states his breathing a bit easier, he seems a bit more relaxed and calm her today. Nursing reports that the intermittent doses of Xanax did help his anxiety and breathlessness. His last fever was yesterday in the morning with a temp of 100.3F, blood pressure has been stable, he continues on 0.9 normal saline at rate 75 ML per hour, he has been started on Baricitinib on all 05/02/2021, and the patient was refusing the dose of 4 mg regarding the concern of his chronic kidney disease. The dose was then dropped to 2 mg daily, which he has been taking. Today's labs have been reviewed, and his renal function has improved since admission, his creatinine is down to 1.10, BUN is 19, his GFR is greater than 90, his sodium is 136, the rest of the electrolytes were unremarkable, his CBC was within normal limits, lymphocyte count is up to 1.1 on today's labs. His LDH and CRP are pending for today, his LDH yesterday was 884, and CRP was 12.1, BNP was 187, his chest x-ray was reviewed today showing stable diffuse bilateral interstitial infiltrates. Patient is also on Decadron 6 mg daily, he is on Lovenox 40 mg daily, he is on vitamins, he last night he was given a dose of melatonin and the nurses felt that it did help him sleep. no acute events overnight. Patient to be doing better with higher flow of oxygen. Reevaluated today on 05/06/2021, patient remains in the ICU, his pulmonary status is very marginal at best. Patient remains on airvo at 55 L flow and 90% FiO2. He is also on the percent nonrebreather mask, and O2 saturation is in the low 90s. Patient is not eating much. He seems to be a bit in distress, hence I recommended switching the patient to BiPAP. Patient will be placed on BiPAP 14/6, and on the percent FiO2. And I have recommended increasing his Solu- Medrol to 40 mg IV push every 6 hours and discontinue Decadron. Chest x-ray showed very minimal change if any, continues to have bilateral diffuse interstitial infiltrates. D-dimer today is down to 5.18 electrolytes are normal his LDH is slightly higher 2479 and CRP is a bit high as 20.2. Blood cultures are negative. Patient remains on the COVID-19 cocktail as well as Barictinib. Lasix was ordered again today 40 mg IV push. Patient is again marginal at best, and he is very well aware that if his condition gets worse, may have to require intubation and mechanical ventilation. Patient was reevaluated today on 05/07/2021, patient had significant deterioration of his pulmonary status over the last 24 hours. Patient was on BiPAP through the night, he required the Precedex, and he required morphine last night, his pulmonary status remains marginal, and his O2 saturation was in the 80s at best. I saw this patient this morning, he was extremely tachypneic, he had shallow breathing, and he was basically tiring out. He was using his accessory muscles, and I had a discussion with the patient about his condition, and explained time that he is definitely having pelvis intubation and mechanical ventilation. Patient agreed to be intubated. At his pulmonary status seems to be getting much worse. Patient was intubated by [employer]. Placed on mechanical ventilation. His ventilator settings initially with assist control rate of 30 and volume 400 FiO2 on the percent and PEEP of 12. ABG repeated within an hour showed a pO2 of 123 pCO2 of 70 pH of 7.2. Hence his rate was increased to 36 and FiO2 cut down to 80%. The PEEP at 12. Patient had to be placed on Nimbex and he was extremely agitated and unable to tolerate the endotracheal tube. And he was poorly ventilated because of gagging on the endotracheal tube. Patient was placed on propofol, fentanyl, and Nimbex. We'll repeat ABG in the next few hours. Clearly the patient failed noninvasive form of positive pressure ventilation, and he required intubation and mechanical ventilation. After intubating the patient, patient had a central line placed and arterial line placed. And we will continue with the COVID-19 cocktail. Continue the same treatment. ABC today showed evidence of 17.9 hemoglobin of 15 d-dimer is down to 3.87. Creatinine 1.18. LDH is down to 1959 and C-reactive protein is about the same 20.2. Reevaluated today on 05/08/2021, patient was intubated yesterday, remains intubated and mechanically ventilated. He is on assist control rate of 36, tidal volume of 430 FiO2 65%, and PEEP was increased from 12-16 today. Higher PEEP did not improve the patient, and affect and a PEEP of 18 patient was noted to have desaturations, and significant rise in his peak airway pressure and in his plateau pressures. Patient remains on propofol at 70 fentanyl at 1 Nimbex at 1.5. His ABG showed a pO2 of 85 pCO2 of 81 pH of 7.21, and his potassium was as high as 6.6. Patient received sodium bicarb, I have adjusted his tidal volume from 400-430 because of the hypercapnia. And I have also added bicarb to keep his bicarb slightly elevated and maintain a relatively low potassium. Patient did receive the cocktail treatment for his hyperkalemia. Including dextrose, insulin, bicarbonate, calcium gluconate, and Kayexalate. Tube feeding will be started today. And nose on the chest x-ray that his infiltrates r emained the same, his endotracheal tube was a bit high in the trachea and this was advanced down by 2 cm. WBC count today is 20.5 hemoglobin is 15.5. D-dimer is 3.13. Potassium follow-up was 5.2. BUN is 29 creatinine 1.17. LDH is 1548. C-reactive protein is 15.6. Reevaluated today on 05/10/2021, patient remains in the ICU, intubated and mechanically ventilated. Patient is sedated and paralyzed. Remains on assist control rate of 38, tidal volume is 430 FiO2 60% PEEP of 16. ABG showed a pO2 of 71 pCO2 of 60 pH of 7.48, hence I'm cutting down his sodium bicarb to 25 mL per hour instead of 50 mL per hour. Patient remains on propofol at 70 fentanyl at 1 Nimbex at 2. Remains on Lovenox, and we are recommending that we continue prone position on this patient, he did quite well with the prone position yesterday. He went on for over 16 hours of prone position. Patient remains on vital HP at 08/15, patient had a temp last night of 102.9, he also developed epistaxis, we are culturing the patient on over again, and we are recommending that we cut down on his Lovenox to prophylactic dose. D-dimer today is 2.31. CBC today is relatively unremarkable. Electrolytes are normal bicarb is 38. Objective - Vital Signs Vital signs: Vital Signs Temp 102.9 F H 05/10/21 08:00 Pulse 110 H 05/10/21 09:00 Resp 36 H 05/10/21 09:00 BP 125/63 05/07/21 11:00 Pulse Ox 87 L 05/10/21 09:00 Intake & Output 05/09/21 05/10/21 05/10/21 18:59 06:59 18:59 Intake Total 2271.773 3180 365.557 Output Total 548 775 150 Balance 980.443 743 215.557 Weight 97.4 kg Intake: IV 303 876 46 ART line 33 36 6 Dextrose 5% in Water 1, 50 600 000 ml @ 50 mls/hr IV . Q23H SUYAPA with Sodium Bicarb (1 Meq/ml) 150 ml Rx#:[id number] Sodium Chloride 0.9% 1, 220 240 40 000 ml @ 20 mls/hr IV . Q24H SUY[facility]A Rx#:[id number] Intake, IV Titration 1213.443 400 265.557 Amount Cisatracurium 200 mg In 176.199 180.669 Sodium Chloride 0.9% 180 ml @ 1 MCG/KG/MIN 6.123 mls/hr IV .Q24H SU[facility]A Rx#: [id number] Dextrose 5% in Water 1, 500 000 ml @ 50 mls/hr IV . Q23H SU[facility]A with Sodium Bicarb (1 Meq/ml) 150 ml Rx#:[id number] fentaNYL (PF). 1,000 mcg 94.576 100 In Sodium Chloride 0.9% 80 ml @ Per Protocol IV . Q0M SUY[facility]A Rx#:[id number] propofoL 1,000 mg In 442.668 300 84.888 Empty Bag 1 bag @ Titrate IV .Q0M SUYAPA Rx#: [id number] Tube Feeding 12 132 24 Other 110 30 Output: Urine 548 775 150 Other: Voiding Method Indwelling Catheter Indwelling Catheter Indwelling Catheter ABP, PAP, CO, CI - Last Documented Arterial Blood Pressure 136/63 - Exam GENERAL EXAM: 40-year-old white male intubated, sedated, mechanically ventilated, and paralyzed. Patient was just transitioned to a supine position from prone position earlier this morning. Head: Atraumatic, normocephalic. EENT: PERRLA, EOMI, anicteric, no neck masses, no JVD, no stridor. CHEST: No chest wall deformity. Symmetrical expansion. LUNGS: Crackles at the bases, no rhonchi no wheezes. CVS: Regular rate and rhythm, normal S1 and S2, no gallops, no murmurs, no rubs ABDOMEN: Soft, nontender. No hepatosplenomegaly, normal bowel sounds, no guarding or rigidity. EXTREMITIES: No clubbing, no edema, no cyanosis, 2+ pulses and upper and lower extremities. MUSCULOSKELETAL: No deformities, patient is paralyzed. SKIN: No rashes CENTRAL NERVOUS SYSTEM: Could not assess, patient is sedated and paralyzed. PSYCHIATRIC: Not assessed, sedated and paralyzed.. - Labs CBC & Chem 7: 05/10/21 04:35 05/10/21 04:35 Labs: Abnormal Lab Results - Last 24 Hours (Table) 05/09/21 05/09/21 05/09/21 Range/Units 03:45 11:47 18:01 WBC (3.8-10.6) k/uL Neutrophils # (1.3-7.7) k/uL Lymphocytes # (1.0-4.8) k/uL D-Dimer (<0.60) mg/L FEU ABG pH (7.35-7.45) ABG pCO2 (35-45) mmHg ABG pO2 (83-108) mmHg ABG HCO3 (21-25) mmol/L ABG Total CO2 (19-24) mmol/L ABG O2 Saturation (94-97) % Chloride (98-107) mmol/L Carbon Dioxide (22-30) mmol/L BUN (9-20) mg/dL Glucose (74-99) mg/dL POC Glucose (mg/dL) 155 H 147 H (75-99) mg/dL Calcium (8.4-10.2) mg/dL Ferritin 419.1 H (22.0-322.0) ng/mL Total Protein (6.3-8.2) g/dL Albumin (3.5-5.0) g/dL 05/09/21 05/10/21 05/10/21 Range/Units 23:02 04:35 04:35 WBC 12.6 H (3.8-10.6) k/uL Neutrophils # 12.0 H (1.3-7.7) k/uL Lymphocytes # 0.3 L (1.0-4.8) k/uL D-Dimer (<0.60) mg/L FEU ABG pH (7.35-7.45) ABG pCO2 (35-45) mmHg ABG pO2 (83-108) mmHg ABG HCO3 (21-25) mmol/L ABG Total CO2 (19-24) mmol/L ABG O2 Saturation (94-97) % Chloride 96 L (98-107) mmol/L Carbon Dioxide 38 H (22-30) mmol/L BUN 36 H (9-20) mg/dL Glucose 151 H (74-99) mg/dL POC Glucose (mg/dL) 145 H (75-99) mg/dL Calcium 8.2 L (8.4-10.2) mg/dL Ferritin (22.0-322.0) ng/mL Total Protein 5.8 L (6.3-8.2) g/dL Albumin 2.6 L (3.5-5.0) g/dL 05/10/21 05/10/21 05/10/21 Range/Units 05:30 06:16 09:26 WBC (3.8-10.6) k/uL Neutrophils # (1.3-7.7) k/uL Lymphocytes # (1.0-4.8) k/uL D-Dimer 2.31 H (<0.60) mg/L FEU ABG pH 7.48 H (7.35-7.45) ABG pCO2 60 H (35-45) mmHg ABG pO2 71 L (83-108) mmHg ABG HCO3 44 H* (21-25) mmol/L ABG Total CO2 46 H (19-24) mmol/L ABG O2 Saturation 92.4 L (94-97) % Chloride (98-107) mmol/L Carbon Dioxide (22-30) mmol/L BUN (9-20) mg/dL Glucose (74-99) mg/dL POC Glucose (mg/dL) 139 H (75-99) mg/dL Calcium (8.4-10.2) mg/dL Ferritin (22.0-322.0) ng/mL Total Protein (6.3-8.2) g/dL Albumin (3.5-5.0) g/dL Assessment and Plan Assessment: Pression: Acute hypoxic respiratory failure secondary to COVID-19 pneumonia ,noninvasive positive pressure ventilation, required intubation and mechanical ventilation today on 05/07/2021. Remains intubated and mechanically ventilated. And tolerated prone position yesterday for over 16 hours. ARDS secondary to COVID-19 pneumonia. Acute kidney injury, secondary to COVID-19 pneumonia. History of mild intermittent asthma. Benign essential hypertension. Former smoker. Elevated inflammatory markers seconded to COVID-19 pneumonia. Epistaxis, likely secondary to anticoagulation therapy/Lovenox. Former smoker. Acute kidney injury, resolved. Acute metabolic acidosis, resolved. Hyperkalemia secondary to metabolic acidosis, resolved. Recommendation: Continue ventilatory support. Continue GI and DVT prophylaxis. Continue nutritional support. Patient is on enteral feeding. Considering the patient spiked a fever yesterday, will cruz culture. Considering the patient had epistaxis yesterday, I will cut down the dose of Lovenox to 40 mg subcu daily. Continue intermittent positioning of the patient in prone positions. Sedation using propofol, fentanyl, and Nimbex Daily monitoring of chest x-ray, ABG, and multiple labs. Including inflammatory markers. Continue droplet precautions and isolation. Prognosis seems to be poor. Critical care time is over 30 minutes Time with Patient: Greater than 30
[2021-05-10 13:36] LABS: Glucose,Whole Blood 150 mg/dL (75-99)
[2021-05-10 13:43] VITALS: BMI 31.7
[2021-05-10] MEDS: SODIUM CHLORIDE 0.9% 1,000 ML IV SCH (16:25)
--- NOTE | 2021-05-10 17:17 | P.PN ---
Subjective Progress Note Date: 05/10/21 Principal diagnosis: shortness of breath Patient is a 40-year-old male past medical history of asthma, hypertension, and prior tobacco abuse who presented to the hospital with worsening shortness of breath and dyspnea. He had been diagnosed with COVID-19 2 weeks prior and been getting progressively more short of breath. In the ER he was found to be hypoxic, imaging demonstrated diffuse groundglass opacities, and the patient was started on steroids. He was admitted for further monitoring. He was evaluated by pulmonary. CT of the chest was completed which showed diffuse groundglass opacities consistent with pneumonia/pneumonitis with no evidence of pulmonary embolism. He was determined to be outside the window for Remdesivir. His respiratory status continued to worsen he was requiring 15L nasal cannula with nonrebreather on top. He was started on a Bariticinibin in addition to his Decadron. By the morning of 05/05 he was requiring AirVo. He required BiPAP overnight on 05/07. His breathing continued to worsen and he was ultimately intubated on 05/07. He has been on nimbex and has been proning 16 hours daily. Patient seen and examined at bedside. sedated and paralyzed on vent General: non toxic, no distress, appears at stated age Derm: cool, diaphoretic Head: atraumatic, normocephalic, symmetric Eyes: no lid lesion, anicteric sclera Mouth: no lip lesion, mucus membranes moist Cardiovascular: S1S2 reg, no murmur, positive posterior tibial pulse bilateral, Lungs: Course bs bilateral, chest rise equal, no vent Abdominal: soft, nontender to palpation, no guarding, no appreciable organomegaly Ext: no gross muscle atrophy, no edema, no contractures Neuro:on nimbex Psych: sedated on vent COVID-19 pneumonia Acute hypoxic respiratory failure ARDS due to COVID -Steroid day #8 currently on IV Solu-Medrol -Vitamin C, vitamin D, and zinc -Bariticnib - pulm recs - on nimbex and sedation - follow inflammatory markters MINH, hyperkalmeia, resolved - on sodium bicarb infusion - avoid nephrotoxic agents - follow Cr Hypertension - controlled - norvasc - bisoprolol History of hypertensive nephropathy with chronic kidney disease stage II Hypomagnesemia Mild intermittent asthma History of tobacco abuse Cale updated over the phone on prognosis- no change in condition still on vent, explained she cannot come up and go in his room DVT prophylaxis: lovenox Discussed with: nursing Anticipated discharge: unknown Anticipated discharge place: unknown A total of 35 minutes was spent on the care of this complex patient more than 50% of the time was spent in counseling and care coordination. Objective - Vital Signs Vital signs: Vital Signs Temp 101.0 F H 05/10/21 12:00 Pulse 101 H 05/10/21 15:00 Resp 36 H 05/10/21 15:00 BP 125/63 05/07/21 11:00 Pulse Ox 89 L 05/10/21 15:00 Intake & Output 05/09/21 05/10/21 05/10/21 18:59 06:59 18:59 Intake Total 1501.881 5374 1170.714 Output Total 548 775 575 Balance 980.443 743 595.714 Weight 97.4 kg 97.4 kg Intake: IV 303 876 382 ART line 33 36 27 Dextrose 5% in Water 1, 50 600 175 000 ml @ 25 mls/hr IV . Q24H [facility]A with Sodium Bicarb (1 Meq/ml) 150 ml Rx#:[id number] Sodium Chloride 0.9% 1, 220 240 180 000 ml @ 20 mls/hr IV . Q24H [facility] Rx#:[id number] Intake, IV Titration 1213.443 400 656.714 Amount Cisatracurium 200 mg In 176.199 282.931 Sodium Chloride 0.9% 180 ml @ 1 MCG/KG/MIN 6.123 mls/hr IV .Q24H [facility]A Rx#: [id number] Dextrose 5% in Water 1, 500 000 ml @ 25 mls/hr IV . Q24H [facility] with Sodium Bicarb (1 Meq/ml) 150 ml Rx#:[id number] fentaNYL (PF). 1,000 mcg 94.576 100 92.875 In Sodium Chloride 0.9% 80 ml @ Per Protocol IV . Q0M [facility] Rx#:[id number] propofoL 1,000 mg In 442.668 300 280.908 Empty Bag 1 bag @ Titrate IV .Q0M SU[facility]A Rx#: [id number] Tube Feeding 12 132 72 Other 110 60 Output: Urine 548 775 575 Other: Voiding Method Indwelling Catheter Indwelling Catheter Indwelling Catheter ABP, PAP, CO, CI - Last Documented Arterial Blood Pressure 152/79 - Labs CBC & Chem 7: 05/10/21 04:35 05/10/21 04:35 Labs: Abnormal Lab Results - Last 24 Hours (Table) 05/09/21 05/09/21 05/10/21 Range/Units 18:01 23:02 04:35 WBC 12.6 H (3.8-10.6) k/uL Neutrophils # 12.0 H (1.3-7.7) k/uL Lymphocytes # 0.3 L (1.0-4.8) k/uL D-Dimer (<0.60) mg/L FEU ABG pH (7.35-7.45) ABG pCO2 (35-45) mmHg ABG pO2 (83-108) mmHg ABG HCO3 (21-25) mmol/L ABG Total CO2 (19-24) mmol/L ABG O2 Saturation (94-97) % Chloride (98-107) mmol/L Carbon Dioxide (22-30) mmol/L BUN (9-20) mg/dL Glucose (74-99) mg/dL POC Glucose (mg/dL) 147 H 145 H (75-99) mg/dL Calcium (8.4-10.2) mg/dL Total Protein (6.3-8.2) g/dL Albumin (3.5-5.0) g/dL 05/10/21 05/10/21 05/10/21 Range/Units 04:35 05:30 06:16 WBC (3.8-10.6) k/uL Neutrophils # (1.3-7.7) k/uL Lymphocytes # (1.0-4.8) k/uL D-Dimer (<0.60) mg/L FEU ABG pH 7.48 H (7.35-7.45) ABG pCO2 60 H (35-45) mmHg ABG pO2 71 L (83-108) mmHg ABG HCO3 44 H* (21-25) mmol/L ABG Total CO2 46 H (19-24) mmol/L ABG O2 Saturation 92.4 L (94-97) % Chloride 96 L (98-107) mmol/L Carbon Dioxide 38 H (22-30) mmol/L BUN 36 H (9-20) mg/dL Glucose 151 H (74-99) mg/dL POC Glucose (mg/dL) 139 H (75-99) mg/dL Calcium 8.2 L (8.4-10.2) mg/dL Total Protein 5.8 L (6.3-8.2) g/dL Albumin 2.6 L (3.5-5.0) g/dL 05/10/21 05/10/21 Range/Units 09:26 13:34 WBC (3.8-10.6) k/uL Neutrophils # (1.3-7.7) k/uL Lymphocytes # (1.0-4.8) k/uL D-Dimer 2.31 H (<0.60) mg/L FEU ABG pH (7.35-7.45) ABG pCO2 (35-45) mmHg ABG pO2 (83-108) mmHg ABG HCO3 (21-25) mmol/L ABG Total CO2 (19-24) mmol/L ABG O2 Saturation (94-97) % Chloride (98-107) mmol/L Carbon Dioxide (22-30) mmol/L BUN (9-20) mg/dL Glucose (74-99) mg/dL POC Glucose (mg/dL) 150 H (75-99) mg/dL Calcium (8.4-10.2) mg/dL Total Protein (6.3-8.2) g/dL Albumin (3.5-5.0) g/dL
[2021-05-10 17:41] LABS: Glucose,Whole Blood 132 mg/dL (75-99)
[2021-05-10] MEDS: MELATONIN 5 MG TABLET PO SCH (21:13)
[2021-05-10] MEDS: BARICITINIB 2 MG TABLET PO SCH (21:25)
[2021-05-10] MEDS: MONTELUKAST 10 MG TAB PO SCH (21:26)
[2021-05-11] LABS: Glucose,Whole Blood 136 mg/dL (75-99)
[2021-05-11] MEDS: INSULIN ASPART (NovoLOG) 100 UNIT/ML VIAL SQ SCH ×3 (00:01→14:21)
[2021-05-11] MEDS: ACETAMINOPHEN IV (For NPO) 1,000 MG in EMPTY BAG 1 BAG IVPB PRN (00:44)
[2021-05-11] MEDS: DEXTROSE 5% IN WATER 1,000 ML with SODIUM BICARB (1 MEQ/ML) 150 ML IV SCH (02:06)
[2021-05-11] MEDS: fentaNYL (PF). 1,000 MCG in SODIUM CHLORIDE 0.9% 80 ML IV SCH ×2 (02:08→11:43)
[2021-05-11 04:52] LABS: HCT 42.6 % (39.0-53.0); HGB 13.9 gm/dL (13.0-17.5); Hypochromasia Slight; MCH 27.3 pg (25.0-35.0); MCHC 32.5 g/dL (31.0-37.0); Mean Platelet Volume 8.4; Platelet Count 419 k/uL (150-450); RBC 5.07 m/uL (4.30-5.90); RDW 14.2 % (11.5-15.5); WBC 11.6 k/uL (3.8-10.6)
[2021-05-11 05:19] LABS: ALT 25 U/L (4-49); AST 79 U/L (17-59); African American GFR (CKD) >90 (>60 ml/min/1.73 sqM); Albumin 2.5 g/dL (3.5-5.0); Alkaline Phosphatase 65 U/L (38-126); Blood Urea Nitrogen 41 mg/dL (9-20); Calcium 7.9 mg/dL (8.4-10.2); Carbon Dioxide 40 mmol/L (22-30); Glucose 150 mg/dL (74-99); LDH 1176 U/L (313-618); Non-African American GFR(CKD) 83 (>60 ml/min/1.73 sqM); Potassium 4.7 mmol/L (3.5-5.1); Sodium 143 mmol/L (137-145); Total Bilirubin 0.7 mg/dL (0.2-1.3); Total Protein 5.6 g/dL (6.3-8.2)
[2021-05-11 06:00] LABS: Glucose,Whole Blood 128 mg/dL (75-99)
[2021-05-11 06:03] LABS: ABG Base Excess 20.9 mmol/L; ABG Oxygen Saturation 82.6 % (94-97); ABG PCO2 61 mmHg (35-45); ABG PH 7.47 (7.35-7.45); ABG TCO2 47 mmol/L (19-24); Allen Test Performed? Yes
[2021-05-11 06:05] LABS: ABG HCO3 45 mmol/L (21-25); ABG PO2 48 mmHg (83-108)
[2021-05-11] MEDS: ALBUTEROL HFA INHALER INHALATION PRN ×2 (07:36→11:08)
[2021-05-11 07:53] LABS: C Reactive Protein 36.1 mg/dL (<1.0)
[2021-05-11 07:58] LABS: Anion Gap 6 mmol/L; Chloride 97 mmol/L (98-107)
--- NOTE | 2021-05-11 08:32 | XR ---
EXAMINATION TYPE: XR chest 1V portable DATE OF EXAM: 05/11/2021 COMPARISON: Chest x-ray 05/10/2021 HISTORY: Intubated TECHNIQUE: Single frontal view of the chest is obtained. FINDINGS: Endotracheal tube, right jugular central venous catheter, NG tube are overlying stable pos itions with distal tip of the NG tube not included in the exam, tube is likely been advanced in the i nterval. No evident pneumothorax or left pleural effusion. Abnormal density persists at the perihilar region, the right hemidiaphragm is obscured, right heart border obscured. Groundglass densities susp ected bilaterally. There are overlying leads. Cardiomediastinal silhouette is likely stable. IMPRESSION: Correlate for pneumonia, edema, ARDS versus atelectasis, difficult to exclude small righ t effusion.
[2021-05-11] MEDS ORDERED: ACETAMINOPHEN IV (For NPO) 1,000 MG in EMPTY BAG 1 BAG IVPB STA (08:57)
[2021-05-11] MEDS ORDERED: ENOXAPARIN 40 MG/0.4 ML SYRINGE SQ SCH (09:00)
[2021-05-11] MEDS: methylPREDNISolone SOD SUCCI 40 MG/ML 1 ML VIAL IV SCH (09:24)
[2021-05-11] MEDS: PANTOPRAZOLE 40 MG/10 ML VIAL IVP SCH (09:24)
[2021-05-11] MEDS ORDERED: SODIUM CHLORIDE 0.9% 1,000 ML IV ONE ×3 (09:39→12:33)
[2021-05-11] MEDS ORDERED: VANCOMYCIN IV PER PHARMACY 1 EACH MISC MISCELLANE PRN (09:39)
[2021-05-11] MEDS ORDERED: VANCOMYCIN 1,000 MG in SODIUM CHLORIDE 0.9% 250 ML IVPB STA (09:43)
[2021-05-11] MEDS ORDERED: SODIUM CHLORIDE 0.9% 1,000 ML IV SCH (09:45)
[2021-05-11] MEDS ORDERED: VANCOMYCIN 1,750 MG in SODIUM CHLORIDE 0.9% 500 ML 500 ML IVPB SCH (10:00)
[2021-05-11] MEDS ORDERED: CEFEPIME 2 GM in SODIUM CHLORIDE 0.9% 100 ML IVPB SCH (10:00)
[2021-05-11] MEDS ORDERED: amLODIPine 10 MG TAB PO SCH (10:30)
--- NOTE | 2021-05-11 10:37 | P.PN ---
Subjective Progress Note Date: 05/11/21 ABG with PO2 of 48 this AM, FiO2 increased to 65% and PEEP increased to 18, SaO2 with these changes resting around 85%; pt remains on methylprednisolone. HRs appear in 140s, sinus rhythm, BPs are stable to slightly hypertensive, on amlodipine, bisoprolol-hctz. Pt is on nimbex, propofol, fentanyl. Pt has tea colored urine with output of 1.8L in last 24 hours, Cr is stable, BUN rising. BCx with 1/4 bottles positive for GPCs, Pt is spiking fevers to 102.9 max in last 24 hours; presently on vancomycin and cefepime. Objective - Vital Signs Vital signs: Vital Signs Temp 99.2 F 05/11/21 04:00 Pulse 121 H 05/11/21 07:00 Resp 36 H 05/11/21 07:00 BP 157/84 05/11/21 07:00 Pulse Ox 87 L 05/11/21 07:00 Intake & Output 05/10/21 05/11/21 05/11/21 18:59 06:59 18:59 Intake Total 9047.322 5127.108 48 Output Total 920 935 60 Balance 481.689 426.108 -12 Weight 97.4 kg 99.8 kg Intake: IV 526 576 48 ART line 36 36 3 Dextrose 5% in Water 1, 250 300 25 000 ml @ 25 mls/hr IV . Q24H [facility] with Sodium Bicarb (1 Meq/ml) 150 ml Rx#:[id number] Sodium Chloride 0.9% 1, 240 240 20 000 ml @ 20 mls/hr IV . Q24H [facility] Rx#:[id number] Intake, IV Titration 743.689 785.108 Amount Cisatracurium 200 mg In 282.931 122.084 Sodium Chloride 0.9% 180 ml @ 1 MCG/KG/MIN 6.123 mls/hr IV .Q24H [facility] Rx#: [id number] fentaNYL (PF). 1,000 mcg 92.875 100 In Sodium Chloride 0.9% 80 ml @ Per Protocol IV . Q0M [facility] Rx#:[id number] propofoL 1,000 mg In 367.883 563.024 Empty Bag 1 bag @ Titrate IV .Q0M [facility] Rx#: [id number] Tube Feeding 72 Other 60 Output: Urine 920 935 60 Other: Voiding Method Indwelling Catheter Indwelling Catheter ABP, PAP, CO, CI - Last Documented Arterial Blood Pressure 141/71 - Exam Gen: intubated/sedated Resp: Vent: AC 480, PEEP 18, FiO2 65% CVS: good distal perfusion x 4, : no SPT, no CVAT, mehat catheter is present MSK: no pitting edema, no clubbing - Labs CBC & Chem 7: 05/11/21 04:00 05/11/21 04:00 Labs: Abnormal Lab Results - Last 24 Hours (Table) 05/10/21 05/10/21 05/10/21 Range/Units 13:34 17:41 23:58 WBC (3.8-10.6) k/uL D-Dimer (<0.60) mg/L FEU ABG pH (7.35-7.45) ABG pCO2 (35-45) mmHg ABG pO2 (83-108) mmHg ABG HCO3 (21-25) mmol/L ABG Total CO2 (19-24) mmol/L ABG O2 Saturation (94-97) % Chloride (98-107) mmol/L Carbon Dioxide (22-30) mmol/L BUN (9-20) mg/dL Glucose (74-99) mg/dL POC Glucose (mg/dL) 150 H 132 H 136 H (75-99) mg/dL Calcium (8.4-10.2) mg/dL AST (17-59) U/L Lactate Dehydrogenase (313-618) U/L C-Reactive Protein (<1.0) mg/dL Total Protein (6.3-8.2) g/dL Albumin (3.5-5.0) g/dL 05/11/21 05/11/21 05/11/21 Range/Units 04:00 04:00 04:50 WBC 11.6 H (3.8-10.6) k/uL D-Dimer 2.22 H (<0.60) mg/L FEU ABG pH (7.35-7.45) ABG pCO2 (35-45) mmHg ABG pO2 (83-108) mmHg ABG HCO3 (21-25) mmol/L ABG Total CO2 (19-24) mmol/L ABG O2 Saturation (94-97) % Chloride 97 L (98-107) mmol/L Carbon Dioxide 40 H (22-30) mmol/L BUN 41 H (9-20) mg/dL Glucose 150 H (74-99) mg/dL POC Glucose (mg/dL) (75-99) mg/dL Calcium 7.9 L (8.4-10.2) mg/dL AST 79 H (17-59) U/L Lactate Dehydrogenase 1176 H (313-618) U/L C-Reactive Protein 36.1 H (<1.0) mg/dL Total Protein 5.6 L (6.3-8.2) g/dL Albumin 2.5 L (3.5-5.0) g/dL 05/11/21 05/11/21 Range/Units 05:56 05:59 WBC (3.8-10.6) k/uL D-Dimer (<0.60) mg/L FEU ABG pH 7.47 H (7.35-7.45) ABG pCO2 61 H (35-45) mmHg ABG pO2 48 L* (83-108) mmHg ABG HCO3 45 H* (21-25) mmol/L ABG Total CO2 47 H (19-24) mmol/L ABG O2 Saturation 82.6 L (94-97) % Chloride (98-107) mmol/L Carbon Dioxide (22-30) mmol/L BUN (9-20) mg/dL Glucose (74-99) mg/dL POC Glucose (mg/dL) 128 H (75-99) mg/dL Calcium (8.4-10.2) mg/dL AST (17-59) U/L Lactate Dehydrogenase (313-618) U/L C-Reactive Protein (<1.0) mg/dL Total Protein (6.3-8.2) g/dL Albumin (3.5-5.0) g/dL Microbiology - Last 24 Hours (Table) 05/10/21 09:32 Blood Culture - Preliminary Blood 05/10/21 09:32 Blood Culture - Final Blood 05/10/21 20:50 Sputum Culture - Preliminary Sputum 05/10/21 Unknown Urine Culture - Preliminary Urine,Catheterized Assessment and Plan Assessment: COVID-19 pneumonia with suspected Superimposed HCAP Gram Positive Bacteremia Acute hypoxic respiratory failure ARDS due to COVID - Steroid day #9 currently on IV Solu-Medrol - Vitamin C, vitamin D, and zinc - s/p Bariticnib on 05/04 - pulm recs - on nimbex and sedation -tea colored urine on 05/11; ordered CK level - follow inflammatory markers - follow blood cultures; 08/29 + for GPCs - Cefepime 05/11 - present - Vancomycin 05/11 - present Hypertension - controlled - norvasc increased to 10mg on 05/11 - bisoprolol-HCTZ MINH, hyperkalmeia, resolved - on sodium bicarb infusion - avoid nephrotoxic agents - follow Cr History of hypertensive nephropathy with chronic kidney disease stage II Hypomagnesemia Mild intermittent asthma History of tobacco abuse DVT prophylaxis: lovenox Discussed with: nursing Anticipated discharge: TBD Anticipated discharge place: LTACH vs Hospice
[2021-05-11] MEDS: BISOPROLOL-HCTZ 10-6.25 MG 1 EACH TAB PO SCH (11:08)
[2021-05-11 11:24] VITALS: BP 114/72
--- NOTE | 2021-05-11 11:32 | P.PN ---
Subjective Progress Note Date: 05/11/21 Principal diagnosis: Severe COVID-19 pneumonia On today's evaluation on 05/11/2021 patient is sedated, intubated, and paralyzed on assist-control mode of ventilation with a rate of 36, tidal volumes 4:30, FiO2 of 70%, and PEEP of 18, this morning's blood gas shows pO2 of 48, pCO2 61, pH is 7.47, this was done on FiO2 of 65% which was subsequently increased to 80%, and gradually brought back down to 70%, he is currently on 0.9 normal saline at a rate of 20 oh per hour, D5 W with 3 g of bicarbonate at a reduced 25 ML per hour, Diprivan is a 75 mics per kilo per minute, Nimbex is at 1.5 mics per kilo per minute, and fentanyl effusion is at 1 melisa per kilo per minute. He is receiving tube feeds that were initiated this morning with vital high protein at a rate of 22 ML per hour when standard water flushes, patient has been febrile T-max of 102.9F, he is been receiving ice packs, IV a former, blood cultures have been sent, and are showing gram-positive cocci, final culture is pending, sputum culture and urine cultures are pending as well. Patient is tachycardic in sinus mechanism with a rate of 120-140, blood pressures are marginal, however not requiring vasopressor support, he has been prone to overnight, tolerated it fairly well. We will add vancomycin and cefepime for possibility of sepsis, and do the patient 1 L bolus for fluid resuscitation. We will obtain a lactic acid. Today's chest x-ray shows no evident pneumothorax or left pleural effusion, there is abnormal density at the perihilar region the right hemidiaphragm is obscured, there are groundglass densities bilaterally, correlate for ARDS, and small right-sided pleural effusion. A similar work has been reviewed, showing white blood cell count of 11.6, hemoglobin is 13.9, sodium is 143, potassium is 4.7, chloride is 97, CO2 is 40, BUN is 41 creatinine is 1.12. D-dimer is 2.2, LDH is 1176, CRP is 36.1 Objective - Vital Signs Vital signs: Vital Signs Temp 99.2 F 05/11/21 04:00 Pulse 121 H 05/11/21 07:00 Resp 36 H 05/11/21 07:00 BP 157/84 05/11/21 07:00 Pulse Ox 87 L 05/11/21 07:00 Intake & Output 05/10/21 05/11/21 05/11/21 18:59 06:59 18:59 Intake Total 1505.356 6480.108 1388.348 Output Total 920 935 360 Balance 481.689 461.592 0700.348 Weight 97.4 kg 99.8 kg Intake: IV 441 913 7478 ART line 36 36 15 Dextrose 5% in Water 1, 250 300 75 000 ml @ 25 mls/hr IV . Q24H [facility] with Sodium Bicarb (1 Meq/ml) 150 ml Rx#:[id number] Sodium Chloride 0.9% 1, 240 240 155 000 ml @ 20 mls/hr IV . Q24H [facility] Rx#:[id number] Sodium Chloride 0.9% 1, 1000 000 ml @ 999 mls/hr IV . Q1H1M ONE Rx#:[id number] Intake, IV Titration 743.689 785.108 99.348 Amount Cisatracurium 200 mg In 282.931 122.084 Sodium Chloride 0.9% 180 ml @ 1 MCG/KG/MIN 6.123 mls/hr IV .Q24H [facility] Rx#: [id number] fentaNYL (PF). 1,000 mcg 92.875 100 In Sodium Chloride 0.9% 80 ml @ Per Protocol IV . Q0M [facility] Rx#:[id number] propofoL 1,000 mg In 367.883 563.024 99.348 Empty Bag 1 bag @ Titrate IV .Q0M [facility] Rx#: [id number] Tube Feeding 72 44 Other 60 Output: Urine 920 935 360 Other: Voiding Method Indwelling Catheter Indwelling Catheter ABP, PAP, CO, CI - Last Documented Arterial Blood Pressure 141/71 - Exam GENERAL EXAM: Intubated, sedated and paralyzed 40-year-old white male, on assist-control mode of ventilation, with FiO2 of 80% and PEEP of 18 with pulse ox of 87-89% currently supine, but he has been prone for up to 16 hours a day on a daily basis HEAD: Normocephalic/atraumatic. EYES: Normal reaction of pupils, equal size. Conjunctiva pink, sclera white. NOSE: Clear with pink turbinates. THROAT: No erythema or exudates. NECK: No masses, no JVD, no thyroid enlargement, no adenopathy. CHEST: No chest wall deformity. Symmetrical expansion. LUNGS: Equal air entry with crackles CVS: Regular rate and rhythm, normal S1 and S2, no gallops, no murmurs, no rubs ABDOMEN: Soft, nontender. No hepatosplenomegaly, normal bowel sounds, no guarding or rigidity. EXTREMITIES: No clubbing, no edema, no cyanosis, 2+ pulses and upper and lower extremities. MUSCULOSKELETAL: Muscle strength and tone normal. SPINE: No scoliosis or deformity SKIN: No rashes CENTRAL NERVOUS SYSTEM: Sedated, intubated and paralyzed No focal deficits, tone is normal in all 4 extremities. - Labs CBC & Chem 7: 05/11/21 04:00 05/11/21 04:00 Labs: Abnormal Lab Results - Last 24 Hours (Table) 05/10/21 05/10/21 05/10/21 Range/Units 13:34 17:41 23:58 WBC (3.8-10.6) k/uL D-Dimer (<0.60) mg/L FEU ABG pH (7.35-7.45) ABG pCO2 (35-45) mmHg ABG pO2 (83-108) mmHg ABG HCO3 (21-25) mmol/L ABG Total CO2 (19-24) mmol/L ABG O2 Saturation (94-97) % Chloride (98-107) mmol/L Carbon Dioxide (22-30) mmol/L BUN (9-20) mg/dL Glucose (74-99) mg/dL POC Glucose (mg/dL) 150 H 132 H 136 H (75-99) mg/dL Calcium (8.4-10.2) mg/dL AST (17-59) U/L Lactate Dehydrogenase (313-618) U/L C-Reactive Protein (<1.0) mg/dL Total Protein (6.3-8.2) g/dL Albumin (3.5-5.0) g/dL 05/11/21 05/11/21 05/11/21 Range/Units 04:00 04:00 04:50 WBC 11.6 H (3.8-10.6) k/uL D-Dimer 2.22 H (<0.60) mg/L FEU ABG pH (7.35-7.45) ABG pCO2 (35-45) mmHg ABG pO2 (83-108) mmHg ABG HCO3 (21-25) mmol/L ABG Total CO2 (19-24) mmol/L ABG O2 Saturation (94-97) % Chloride 97 L (98-107) mmol/L Carbon Dioxide 40 H (22-30) mmol/L BUN 41 H (9-20) mg/dL Glucose 150 H (74-99) mg/dL POC Glucose (mg/dL) (75-99) mg/dL Calcium 7.9 L (8.4-10.2) mg/dL AST 79 H (17-59) U/L Lactate Dehydrogenase 1176 H (313-618) U/L C-Reactive Protein 36.1 H (<1.0) mg/dL Total Protein 5.6 L (6.3-8.2) g/dL Albumin 2.5 L (3.5-5.0) g/dL 05/11/21 05/11/21 Range/Units 05:56 05:59 WBC (3.8-10.6) k/uL D-Dimer (<0.60) mg/L FEU ABG pH 7.47 H (7.35-7.45) ABG pCO2 61 H (35-45) mmHg ABG pO2 48 L* (83-108) mmHg ABG HCO3 45 H* (21-25) mmol/L ABG Total CO2 47 H (19-24) mmol/L ABG O2 Saturation 82.6 L (94-97) % Chloride (98-107) mmol/L Carbon Dioxide (22-30) mmol/L BUN (9-20) mg/dL Glucose (74-99) mg/dL POC Glucose (mg/dL) 128 H (75-99) mg/dL Calcium (8.4-10.2) mg/dL AST (17-59) U/L Lactate Dehydrogenase (313-618) U/L C-Reactive Protein (<1.0) mg/dL Total Protein (6.3-8.2) g/dL Albumin (3.5-5.0) g/dL Microbiology - Last 24 Hours (Table) 05/10/21 09:32 Blood Culture - Preliminary Blood 05/10/21 09:32 Blood Culture - Final Blood 05/10/21 20:50 Sputum Culture - Preliminary Sputum 05/10/21 Unknown Urine Culture - Preliminary Urine,Catheterized Assessment and Plan Plan: Assessment: #1. Acute hypoxic respiratory failure related to acute COVID-19 pneumonia, diagnosed 2 weeks prior to presentation, and was outside the window for Remdesivir. Started Bariticinib for evidence of severe hypoxic respiratory failure, patient was intubated on 05/07/2021. Currently remains intubated, sedated and paralyzed, on FiO2 of 80% and PEEP of 18. Patient has been tolerating pronating on a daily basis, up to 16 hours a day #2. Acute respiratory distress syndrome, secondary to acute COVID-19 pneumonia #3. Acute kidney injury secondary to ATN, and acute COVID-19 pneumonia #4. Gram-positive bacteremia, preliminary blood cultures showed gram-positive cocci, final blood cultures pending, we will add cefepime and vancomycin today #5. Sepsis, with bacteremia #6. Epistaxis, secondary to anticoagulation therapy Lovenox, improved #7. Acute metabolic acidosis, resolved, we will discontinue bicarbonate infusion #8. Hyperkalemia secondary to metabolic acidosis, resolved #9. History of mild intermittent bronchial asthma #10. Hypertension #11. Former smoker #12. Elevated d-dimer without CT evidence of pulmonary embolism, improved some, and is currently down to 2.22, currently on Lovenox 40 mg daily Plan: Increase FiO2 up to 100% and PEEP at 18 We will try to wean the FiO2 back down to keep O2 sats saturations between 88- 90% Continue sedated and paralyzed Discontinue bicarbonate infusion We will give 1 L IV fluid bolus, and increase 0.9-75 ML per hour We will give the patient cefepime and vancomycin Repeat blood cultures We will await finalized blood cultures Stop bariticinib Continue tube feedings Continue current dose Lovenox Today's labs have been noted Continue proning the patient for 16 hours a day We'll continue closely following his clinical course Overall prognosis is extremely guarded I performed a history & physical examination of the patient and discussed their management with my nurse practitioner, Leda Dawson. I reviewed the nurse practitioner's note and agree with the documented findings and plan of care. Lung sounds are positive for diminished breath sounds throughout the lung pederson. The findings and the impression was discussed with the patient. I attest to the documentation by the nurse practitioner. Time with Patient: Greater than 30
[2021-05-11] MEDS ORDERED: NOREPINEPHRINE 8 MG in SODIUM CHLORIDE 0.9% 250 ML IV SCH (12:15)
[2021-05-11] MEDS ORDERED: ACETAMINOPHEN IV (For NPO) 1,000 MG in EMPTY BAG 1 BAG IVPB PRN (12:18)
[2021-05-11] MEDS ORDERED: SODIUM CHLORIDE 0.9% 2,000 ML IV ONE (12:27)
--- NOTE | 2021-05-11 12:48 | XR ---
EXAMINATION TYPE: XR chest 1V portable DATE OF EXAM: 05/11/2021 CLINICAL HISTORY: Hypoxia progress study. COVID positive. TECHNIQUE: Single AP portable frontal view of the chest is obtained. COMPARISON: Chest x-ray from earlier today and older studies. FINDINGS: Stable endotracheal tube and right internal jugular central venous catheters. Stable oroga stric tube. Persistent bilateral reticular increased opacities . Persistent dense consolidation with air broncho grams in the right lower lung with more prominent air bronchograms noted on current study. Cardiac si lhouette size is stable and likely within normal limits. Silhouetting of right heart border remains p resent. Osseous structures are intact. IMPRESSION: Persistent Bilateral faint multifocal reticular opacities with more dense lower lobe consolidation wi th air bronchograms and central vascular congestion. No significant change from earlier today.
[2021-05-11 12:58] LABS: Glucose,Whole Blood 115 mg/dL (75-99)
[2021-05-11 14:17] VITALS: PULSE 140; TEMP 101
[2021-05-11] MEDS: CHOLECALCIFEROL 25 MCG (1000 IU) TABLET PO SCH (14:18)
[2021-05-11] MEDS: CHLORHEXIDINE GLUCONATE 15 ML CUP MUCOUS MEM SCH (14:18)
[2021-05-11] MEDS: ASCORBIC ACID 500 MG TAB PO SCH (14:18)
[2021-05-11] MEDS: TAMSULOSIN 0.4 MG CAP.ER.24H PO SCH (14:18)
[2021-05-11] MEDS: ZINC SULFATE 220 MG CAP PO SCH (14:19)
[2021-05-11] MEDS ORDERED: MORPHINE SULFATE 2 MG/ML SYRINGE IV PRN (14:42)
[2021-05-11] MEDS ORDERED: ONDANSETRON 4 MG/2 ML VIAL IVP PRN (14:42)
[2021-05-11] MEDS ORDERED: ATROPINE OPHTH SOLN 1% 5ML BTL SUBLINGUAL PRN (14:42)
[2021-05-11] MEDS ORDERED: LORazepam 2 MG/ML INJ IV PRN (14:42)
[2021-05-11] MEDS ORDERED: MORPHINE SULFATE 4 MG/ML SYRINGE IV PRN (14:42)
[2021-05-11] MEDS ORDERED: MORPHINE SULFATE (100 MG/2 ML) 100 MG in SODIUM CHLORIDE 0.9% 100 ML IV SCH (14:45)
--- NOTE | 2021-05-11 16:05 | P.EN ---
I spoke with patient's significant other, mother, and father regarding patient's clinical status for the purpose of advance care planning in light of his serious medical conditions enumerated below: 1. Septic shock secondary to bacterial pneumonia 2. ARDS secondary to COVID 19 In light of patients deteriorating clinical status, I sought to inform the above participants about his extremely poor prognosis. Today, I discussed how patient's lungs were damaged to the point that despite 100% FiO2 and high PEEP, patient oxygen saturation was at best 75%, which was not compatible with the ability to provide critical organs with oxygen. Furthermore, we discussed that delivery of oxygen via the blood to the critical organs such as the brain was impaired due to shock status and declining blood pressure despite escalating pressor requirements and HR of sinus tachycardia of 140s while at rest. Given that the patient was not able to deliver oxygen to vital organs, I recommended first that we change his code status to DNR/DNI, which patient's family agreed to. However, they further requested what can be done to improve his comfort in this situation, and consequently, we had a conversation regarding patient's appropriateness for hospice given his rapidly deteriorating clinical status despite appropriate available medical therapy, and patient's family wished to pursue comfort measures. We transitioned patient's goals to comfort measures as of 1430 on 05/11. I spent 48 minutes of [id number] time discussing advance care planning with the patient and family at bedside and through video conference.
--- NOTE | 2021-05-11 16:39 | P.DS ---
Providers Date of admission: 05/02/21 13:07 Expected date of discharge: 05/11/21 Attending physician: Victor Hugo Patton Consults: 05/02/21 13:06 Consult Physician Routine Consulting Provider: Capo Steele Consult Reason/Comments: COVID-19 pneumonia, hypoxemia Do you want consulting provider notified?: Yes Primary care physician: Tucker Pope Hospital Course: Pt due to complications of COVID 19 at approximately 1620. Tobacco use contributed to . Assessment: Plan - Discharge Summary New Discharge Prescriptions: No Action Tamsulosin [Flomax] 0.4 mg PO DAILY Fluticasone Nasal [place] [Flonase Nasal [place]] 2 spr EA NOSTRIL DAILY PRN PRN Reason: Congestion lisinopriL [Zestril] 30 mg PO DAILY Famotidine [Pepcid] 40 mg PO DAILY Montelukast [Singulair] 10 mg PO HS Cetirizine HCl [Zyrtec] 10 mg PO DAILY Bisoprolol-Hctz 10-6.25 mg [Ziac 10-6.25 MG] 1 tab PO DAILY Discharge Medication List Bisoprolol-Hctz 10-6.25 mg [Ziac 10-6.25 MG] 1 tab PO DAILY 05/02/21 [History] Cetirizine HCl [Zyrtec] 10 mg PO DAILY 05/02/21 [History] Famotidine [Pepcid] 40 mg PO DAILY 05/02/21 [History] Fluticasone Nasal [place] [Flonase Nasal [place]] 2 spr EA NOSTRIL DAILY PRN 05/02/21 [History] Montelukast [Singulair] 10 mg PO HS 05/02/21 [History] Tamsulosin [Flomax] 0.4 mg PO DAILY 05/02/21 [History] lisinopriL [Zestril] 30 mg PO DAILY 05/02/21 [History] Follow up Appointment(s)/Referral(s): Tucker Pope MD [Primary Care Provider] - 1-2 days
[2021-05-11] MEDS ORDERED: methylPREDNISolone SOD SUCCI 40 MG/ML 1 ML VIAL IV SCH (18:00)
[2021-05-12] MEDS ORDERED: VANCOMYCIN TROUGH DUE 1 EACH MISC MISCELLANE ONE (09:00)
--- NOTE | 2021-05-31 06:40 | CDI ---
Documentation Clarification Form Mortality Review Date: 05/30/2021 10:30:00 PM From: Jasmina Payan RN, CCDS Admit Date: 05/02/2021 01:07:00 PM Patient Name: Juan Luis Woodson Visit Number: [id number] Discharge Date: 05/11/2021 01:07:00 PM ATTENTION: The Clinical Documentation Specialists (CDI) and [facility] Coding Staff appreciate your assistance in clarifying documentation. Please respond to the clarification below the line at the bottom and electronically sign. The CDI & [facility] Coding staff will review the response and follow-up if needed. Please note: Queries are made part of the Legal Health Record. If you have any questions, please contact the author of this message via ITS. Dr. Cristy Hui Patient was maintained NPO for prolonged period and received OGT tube feedings. Based on this information and the findings below, is there an additional diagnosis that is clinically appropriate for this patient? History/Risk Factors: Covid 19 pneumonia with sepsis, secondary bacterial pneumonia, Acute Hypoxic respiratory Failure with ARDS, Mild Intermittent Asthma, Former Smoker, CKD stage 3B MINH and Hypomagnesemia this admission, Clinical Indicators: 05/08/2021 RD Consult Assessment: Current BMI: 32.5 Insufficient energy intake: Maintained NPO status Weight Loss: NONE- Per RD pt. is 138% of IBW Fluid accumulation: No edema 05/02 Total Protein 6.4 Albumin 3.3 05/10 Total Protein 5.8 Albumin 2.6 Treatment: Dietary Consult: completed 05/08 and reassessed 05/10 Tube Feedings via OGT: Vital High Protein @ 22 ml/hr. with 30 ml free water flush Q 4 hrs. Lab monitoring: AM Daily Is there an additional diagnosis that is clinically appropriate for this patient? [ ] Mild Protein-Calorie Malnutrition [ ] Moderate Protein-Calorie Malnutrition [ ] Severe Protein-Calorie Malnutrition [ ] Other condition, please specify [ ] Unable to Determine (Template Last Revised: October 2020) No malnutrition MTDD
--- NOTE | 2021-05-31 07:19 | CDI ---
Documentation Clarification Form Mortality Review Date: 05/30/2021 10:31:00 PM From: Jasmina Payan RN, CCDS Admit Date: 05/02/2021 01:07:00 PM Patient Name: Juan Luis Woodson Visit Number: [id number] Discharge Date: 05/11/2021 01:07:00 PM ATTENTION: The Clinical Documentation Specialists (CDI) and [facility] Coding Staff appreciate your assistance in clarifying documentation. Please respond to the clarification below the line at the bottom and electronically sign. The CDI & [facility] Coding staff will review the response and follow-up if needed. Please note: Queries are made part of the Legal Health Record. If you have any questions, please contact the author of this message via ITS. Dr. Victor Hugo Patton The patient presented on admission with the following clinical indicators. Additional clarification regarding the etiology/cause of the clinical indicators is requested and POA status. History/Risk Factors: COVID 19 Pneumonia, Acute hypoxic respiratory failure with ARDS, MINH, mild intermittent Asthma, HTN Clinical Indicators: 05/11 Attending Progress note: "Septic shock secondary to bacterial pneumonia Furthermore, we discussed that delivery of oxygen via the blood to the critical organs such as the brain was impaired due to shock status and declining blood pressure despite escalating pressor requirements and HR of sinus tachycardia of 140s while at rest." 05/11 Pulmonary Progress Note: "We will add Vancomycin and Cefepime for possibility of sepsis, and do the patient 1 L bolus for fluid resuscitation. 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 x 1 dose 05/11 IV Vanco 1750mh IVPB q 8 hrs. x 1 dose Baricitinib 4 mg PO Q 24 hrs. x 13 dosed followed by 2mg PO x 14 doses 9/7 1L 0.9% NS IVF Bolus followed by 130 cc/hr. x 1 L then decreased to 75 cc/hr. 9/16 4 L 0.9% NS IVF Bolus followed by 75 cc/hr. In your professional opinion, please clarify if these findings signify one of the following conditions: [ ] Sepsis POA [ X ] Sepsis, Not POA [ ] Sepsis with Severe Sepsis with organ failure POA [ ] Other, please specify [ ] Unable to determine SIRS Criteria: 2 or more of the following may indicate SIRS -Temperature < 96.8F (36C) or > 101.0F (38.3C) -Heart Rate > 90 bpm -Respiratory Rate > 20 breaths/min or PaCO2 < 32 mmHg -White Blood Cell Count > 12,000 or < 4,000 cells/mm3 or > 10% bands (Template Last Reviewed: September 2020) MTDD
== END 2021-05-11 13:07 | disposition expired | DRG 207 ==
LOC: EC 10:12 → 4SSUR 13:07 → 2SICU 05-04 15:03
PROVIDERS: ADMIT Internal Medicine; ATTEND Internal Medicine
PROC: 5A09457 Assistance with Respiratory Ventilation, 24-96 Consecutive Hours, Continuous Positive Airway Pressure (ICD-10-PCS; 2021-05-02)
PROC: XW0DXM6 Introduction of Baricitinib into Mouth and Pharynx, External Approach, New Technology Group 6 (ICD-10-PCS; 2021-05-02)
PROC: 5A09457 Assistance with Respiratory Ventilation, 24-96 Consecutive Hours, Continuous Positive Airway Pressure (ICD-10-PCS; 2021-05-06)
PROC: 5A1955Z Respiratory Ventilation, Greater than 96 Consecutive Hours (ICD-10-PCS; principal; 2021-05-07)
PROC: 0BH17EZ Insertion of Endotracheal Airway into Trachea, Via Natural or Artificial Opening (ICD-10-PCS; 2021-05-07)
PROC: 05HM33Z Insertion of Infusion Device into Right Internal Jugular Vein, Percutaneous Approach (ICD-10-PCS; 2021-05-07)
PROC: 4A133B1 Monitoring of Arterial Pressure, Peripheral, Percutaneous Approach (ICD-10-PCS; 2021-05-07)
PROC: 4A133J1 Monitoring of Arterial Pulse, Peripheral, Percutaneous Approach (ICD-10-PCS; 2021-05-07)
PROC: 03HY32Z Insertion of Monitoring Device into Upper Artery, Percutaneous Approach (ICD-10-PCS; 2021-05-07)
PROC: 0D9670Z Drainage of Stomach with Drainage Device, Via Natural or Artificial Opening (ICD-10-PCS; 2021-05-07)
PROC: 3E0G76Z Introduction of Nutritional Substance into Upper GI, Via Natural or Artificial Opening (ICD-10-PCS; 2021-05-08)
PROC: 3E043XZ Introduction of Vasopressor into Central Vein, Percutaneous Approach (ICD-10-PCS; 2021-05-11)
DX: U07.1 COVID-19 (principal); J12.82 Pneumonia due to coronavirus disease 2019; A41.89 Other specified sepsis; R65.21 Severe sepsis with septic shock; N17.0 Acute kidney failure with tubular necrosis; J15.9 Unspecified bacterial pneumonia; J80 Acute respiratory distress syndrome; E87.2 Acidosis; K75.9 Inflammatory liver disease, unspecified; N18.32 Chronic kidney disease, stage 3b; I12.9 Hypertensive chronic kidney disease with stage 1 through stage 4 chronic kidney disease, or unspecified chronic kidney disease; Y95 Nosocomial condition; Z66 Do not resuscitate; Z51.5 Encounter for palliative care; E86.0 Dehydration; E83.42 Hypomagnesemia; J45.20 Mild intermittent asthma, uncomplicated; E87.5 Hyperkalemia; F41.9 Anxiety disorder, unspecified; R04.0 Epistaxis; T45.515A Adverse effect of anticoagulants, initial encounter; Z87.891 Personal history of nicotine dependence; Z79.899 Other long term (current) drug therapy; Z88.8 Allergy status to other drugs, medicaments and biological substances; Z82.49 Family history of ischemic heart disease and other diseases of the circulatory system; Z82.61 Family history of arthritis; Z83.79 Family history of other diseases of the digestive system
CPT/HCPCS: 36415; 36600; 71045; 71046; 71275; 80048; 80053; 82550; 82728; 82805; 83605; 83615; 83735; 83880; 84132; 84145; 84484; 85025; 85027; 85379; 85610; 85730; 86140; 87040; 87070; 87077; 87086; 87186; 87205; 93005; 94002; 94003; 94640; 94660; 94760; 96361; 96374; 96375; 99285